=== PATIENT | male | born 1945 | race Caucasian/White ===

== ENCOUNTER 2019-10-24 13:43 | Emergency (ER) | payer MEDICARE, SELFPAY ==
--- NOTE | ~2019-10-24 | XR_ITS ---
XR chest 2V 10/24/2019 14:37 Indication: Fever with cough Procedure: 2 view chest Comparison: 01/20/2011 Findings: There is developing left lower lobe airspace disease. Heart size normal. No edema, pleural effusion or pneumothorax. No acute osseous abnormality. There is moderate thoracic spondylosis. Impression: 1: Left lower lobe airspace disease may represent atelectasis or developing pneumonia. Reviewed, dictated and finalized at location B. INTEGRATION ENGINEER Impression: 1: Left lower lobe airspace disease may represent atelectasis or developing pne umonia.
[2019-10-24 13:47] VITALS: BP 132/60; PULSE 66; RESP 13; O2SAT 95
--- NOTE | 2019-10-24 13:57 | ECG_ITS ---
Measurements Intervals [place] Rate: 66 P: 30 SC: 171 QRS: 21 QRSD: 98 T: 56 QT: 393 QTc: 412 Interpretive Statements SINUS RHYTHM NONSPECIFIC ST & T-WAVE ABNORMALITY- INFERIOR LEADS BORDERLINE ECG Electronically Signed On 10-25-2019 8:42:54 MEMORIAL DESIGNER by Trae You D.O.
[2019-10-24 14:17] VITALS: TEMP 36.9
--- NOTE | 2019-10-24 14:19 | ED.URI ---
HPI - URI/Sore Throat General Chief Complaint: Upper Respiratory Infection <Jacqui Trivedi PA-C - Last Filed: 10/24/19 17:07> Stated Complaint: Flu like symptoms <RAJI Patel Last Filed: 10/24/19 17:07> Time Seen by Provider: 10/24/19 13:54 <Jacqui Trivedi PA-C - Last Filed: 10/24/19 17:07> Source: patient <RAJI Patel Last Filed: 10/24/19 17:07> Mode of arrival: EMS <RAJI Patel Last Filed: 10/24/19 17:07> Limitations: no limitations <RAJI Patel Last Filed: 10/24/19 17:07> History of Present Illness HPI Narrative: This is a 73 year old male that presents to the ER for cold symptoms since yesterday. Reports fever, headache, cough, congestion, sore throat and weakness. Denies chest pain, shortness of breath, abdominal pain, vomiting, dysuria, hematuria. <RAJI Patel Last Filed: 10/24/19 17:07> Related Data Allergies/Adverse Reactions: Allergies Allergy/AdvReac Type Severity Reaction Status Date / Time cefdinir Allergy Mild Unknown Verified 10/24/19 13:57 codeine Allergy Mild Unknown Verified 10/24/19 13:57 Penicillins Allergy Mild Unknown Verified 10/24/19 13:57 Calcium Channel Blocking Allergy Unknown SEE NOTE Verified 10/24/19 13:57 Agents-Dih amlodipine AdvReac Severe SOB, Verified 10/24/19 13:57 JITTERY, INCREASED BLOOD PRESSURE <RAJI Patel Last Filed: 10/24/19 17:07> Review of Systems Review of Systems: Narrative: CONSTITUTIONAL: Reports fever, chills ENT: Reports rhinorrhea, congestion, sore throat, and otalgia. CARDIOVASCULAR: Denies chest pain RESPIRATORY: Reports cough. Denies dyspnea. GASTROINTESTINAL: Denies abdominal pain, nausea, vomiting, or diarrhea. GENITOURINARY: Denies dysuria or hematuria. NEUROLOGIC: Reports headache, and weakness. Denies numbness <Jacqui Trivedi PA-C - Last Filed: 10/24/19 17:07> All systems reviewed & are unremarkable except as noted in HPI and below <Jacqui Trivedi PA-C - Last Filed: 10/24/19 17:07> PMFSH Past Medical History Medical History: Medical History (Updated 10/24/19 @ 17:06 by Jacqui Trivedi PA-C) History of BPH History of COPD History of hyperlipidemia History of hypertension History of hypothyroidism <Jacqui Trivedi PA-C - Last Filed: 10/24/19 17:07> Social History Social History: Social History (Updated 10/24/19 @ 14:24 by Jacqui Trivedi PA-C) Smoking status: Former smoker Gender identity (if verbalized by the patient): Male <Jacqui Trivedi PA-C - Last Filed: 10/24/19 17:07> Exam Narrative: Exam Narrative: GENERAL: Elderly, well-nourished, and in no acute distress. HEAD: Normocephalic, atraumatic. EYES: EOMI. ENT: Nares clear, no rhinorrhea or epistaxis. Mucous membranes moist. Oropharynx without tonsillar hypertrophy exudate or other lesions. Bilateral TMs pearly maldonado non-bulging NECK: Supple. No adenopathy or masses. CHEST: Clear to auscultation. No respiratory distress. No wheezes rales or rhonchi HEART: Regular rate and rhythm. No murmur heard. Normal peripheral pulses. ABDOMEN: Soft, nontender, nondistended, normal active bowel sounds. EXTREMITIES: Normal range of motion. No edema. SKIN: Warm, dry, no rash. NEURO: No focal deficits. Alert and oriented x3. PSYCH: Normal mood and affect <Jacqui Trivedi PA-C - Last Filed: 10/24/19 17:07> Course Vital Signs Vital signs: Vital Signs Pulse Rate 66 10/24/19 13:47 Respiratory Rate 13 10/24/19 13:47 Blood Pressure 132/60 10/24/19 13:47 Pulse Oximetry 95 10/24/19 13:47 Temperature 36.9 C 10/24/19 14:17 Pulse Rate 65 10/24/19 16:43 Respiratory Rate 13 10/24/19 13:47 Blood Pressure 134/59 L 10/24/19 16:43 Pulse Oximetry 95 10/24/19 13:47 <Jacqui Trivedi PA-C - Last Filed: 10/24/19 17:07> Vital Signs Pulse Rate 66 10/24/19 13:47 Respiratory Rate 13 10/24/19 13
--- NOTE | 2019-10-24 14:28 | PC.NURSE ---
Pt taken to Xray at this time.
[2019-10-24 14:39] LABS: Basophils Percent Auto 0.1 % (0.2-1.2); Hematocrit 38.8 % (42.0-52.0); Hemoglobin 13.1 g/dL (14.0-18.0); Immature Granulocyte Absolute 0.14 K/mm3 (0.00-0.031); Immature Granulocyte Percent A 0.9 % (0-0.5); Lymphocytes Absolute Auto 1.91 K/mm3 (0.9-3.2); Lymphocytes Percent Auto 11.9 % (18.3-44.2); Mean Corpuscular HGB Conc 33.8 g/dl (32-36); Mean Corpuscular Hemoglobin 29.8 pg (26-34); Mean Corpuscular Volume 88.4 fl (80-100); Mean Platelet Volume 10.2 fl (7.4-10.4); Monocytes Absolute Auto 0.9 K/mm3 (0.1-0.6); Monocytes Percent Auto 5.6 % (2.6-8.5); Neutrophils Absolute Auto 13.1 K/mm3 (1.3-6.7); Neutrophils Percent Auto 81.5 % (45.5-73.1); Platelet Count Result 184 k/mm3 (150-375); Red Blood Count 4.39 M/mm3 (4.6-6.20); Red Cell Distribution Width 12.4 % (11.5-14.5); White Blood Count 16.1 K/mm3 (4.5-10.0)
[2019-10-24] MEDS: SODIUM CHLORIDE 0.9% IV 1,000 ML 999 ML IV CONT (14:40)
[2019-10-24 14:46] LABS: Lactic Acid Reflex 1.1 mmol/L (0.7-2.1)
--- NOTE | 2019-10-24 14:50 | PC.NURSE ---
Pt unable to give urine sample at this time. This RN placed urinal at bedside
[2019-10-24 14:55] LABS: Alanine Aminotransferase 14 U/L (4-50); Albumin Level 3.7 g/dL (3.5-5.1); Alkaline Phosphatase 73 U/L (38-126); Aspartate Amino Transferase 18 U/L (17-59); Bilirubin,Total 1.1 mg/dL (0.2-1.3); Blood Urea Nitrogen 19 mg/dL (9-20); Calcium 8.6 mg/dL (8.4-10.2); Carbon Dioxide 29 mmol/L (22-30); Chloride 98 mmol/L (98-107); Estimated CRCL calculation 419 ml/min; Estimated Glomerular Filt Rate > 60; Glucose 123 mg/dL (75-110); Potassium 3.3 mmol/L (3.4-5.0); Sodium 136 mmol/L (137-145)
[2019-10-24] MEDS: POTASSIUM CHLORIDE 20 MEQ PACKET (FOR LIQUID) 40 MEQ PO (16:40)
[2019-10-24 16:43] VITALS: BP 134/59; PULSE 65
== END 2019-10-24 17:27 | disposition home or self-care (01) ==
PROVIDERS: Physician Assistant; Emergency Provider Emergency Medicine; PCP Internal Medicine
DX: J15.9 Unspecified bacterial pneumonia (principal); N40.0 Benign prostatic hyperplasia without lower urinary tract symptoms; J44.9 Chronic obstructive pulmonary disease, unspecified; E78.5 Hyperlipidemia, unspecified; I10 Essential (primary) hypertension; E03.9 Hypothyroidism, unspecified; Z87.891 Personal history of nicotine dependence; R94.31 Abnormal electrocardiogram [ECG] [EKG]
CPT/HCPCS: 36415; 71046; 80053; 83605; 85025; 86140; 87804; 93005; 96361; 96365; 99284; A9270; J1956; J7030

== ENCOUNTER 2020-10-19 14:03 | Outpatient (CLI) | payer MEDICARE, SELFPAY | END 2020-10-19 14:04 | disposition home or self-care (01) | LOC: ANHCOVIDVC 14:03 | PROVIDERS: PCP Internal Medicine Cardiovascular Disease; Visit Provider Internal Medicine Cardiovascular Disease | DX: Z23 Encounter for immunization (principal) | CPT/HCPCS: 0001A; 91300 ==

== ENCOUNTER 2020-11-09 13:58 | Outpatient (CLI) | payer MEDICARE, SELFPAY | END 2020-11-09 13:59 | disposition home or self-care (01) | LOC: ANHCOVIDVC 13:58 | PROVIDERS: PCP Internal Medicine Cardiovascular Disease | DX: Z23 Encounter for immunization (principal) | CPT/HCPCS: 0002A; 91300 ==

== ENCOUNTER 2021-03-13 13:05 | Emergency (ER) | payer MEDICARE, SELFPAY ==
--- NOTE | ~2021-03-13 | XR_ITS ---
XR hip LT min 3V w AP pelvis DATE: 03/13/2021 13:29 INDICATION: Fall. Left hip pain TECHNIQUE: AP pelvis. AP, lateral and crosstable lateral views of left hip COMPARISON: None FINDINGS: Osteopenia. Mild left hip osteoarthritis No pelvic fracture or bone destruction. Normal alignment at the pubic symphysis and sacroiliac joints . No fracture, dislocation, avascular necrosis or bone destruction of the left hip. IMPRESSION: Osteopenia; no left hip fracture or dislocation Reviewed, dictated and finalized at location A.
--- NOTE | ~2021-03-13 | XR_ITS ---
XR ankle LT min 3V DATE: 03/13/2021 13:28 INDICATION: Fall. Left ankle injury, pain TECHNIQUE: 4 views COMPARISON: None FINDINGS: No fracture or dislocation of the ankle or disruption of the ankle mortise. No periosteal r eaction or bone destruction. IMPRESSION: No fracture or dislocation of the ankle Reviewed, dictated and finalized at location A.
--- NOTE | ~2021-03-13 | XR_ITS ---
EXAMINATION: XR lumbar spine 2-3V EXAM DATE: 03/13/2021 14:17 INDICATION: Fall, low back pain. TECHNIQUE: Lumber spine frontal, lateral, lateral L5-S1 projections for interpretation. Comparison is made to prior examination from 08/01/2018. FINDINGS: Possible sacral fracture distally, age indeterminate. Chronic moderate to severe burst frac ture of the L2 vertebral body, has been treated with methylmethacrylate. Probably about 5 mm retropul maddie of L2 at inferior endplate. Mild chronic compression fracture of T11 and minimal at T12. Paraspi nal soft tissue is unremarkable. IMPRESSION: 1. Possible sacral fracture distally, age indeterminate but not present in 2018. Reviewed, dictated and finalized at location A. IMPRESSION: 1. Possible sacral fracture distally, age indeterminate but not present in 201 8.
--- NOTE | ~2021-03-13 | CT_ITS ---
EXAMINATION: CT lumbar spine [facility] EXAM DATE: 03/13/2021 15:28 INDICATION: Low back pain, fall, abnormal x-ray. TECHNIQUE: Spiral CT lumbar spine was performed without contrast. Axial, coronal and sagittal images of the lumbar spine were reviewed. The dose-length product (DLP) for this examination was 1169.77 mGy -cm. The exposure was tailored according to patient size (auto mA exposure control), and iterative r econstruction (ASIR) was used as additional dose reduction technique. Comparison is made to prior exa mination from 2018. FINDINGS: Acute minimal burst fracture of the L5 vertebral body, mild loss of this vertebral body hei ght centrally and posteriorly, only 2 mm of retropulsion. Contour abnormality to the S5 segment along its left anterior cortex is likely an old fracture. L2 b urst fracture with moderate to severe loss of this vertebral body height centrally and anteriorly and 7 mm retropulsion, causing moderate central canal stenosis. Moderate to severe lower lumbar facet a rthropathy. Moderate loss of the disc height at L3-4, mild to moderate at L4-5 and L1-2. A detailed l evel by level evaluation of spondylosis can be added as addendum if requested. IMPRESSION: 1. Acute minimal L5 burst fracture, only 2 mm retropulsion. 2. Chronic findings including treated L2 burst fracture with retropulsion causing moderate central c anal stenosis. Reviewed, dictated and finalized at location A. IMPRESSION: 1. Acute minimal L5 burst fracture, only 2 mm retropulsion. 2. Chronic findings including treated L2 burst fracture with retropulsion caus ing moderate central canal stenosis.
[2021-03-13 13:08] VITALS: BP 176/75; PULSE 61; RESP 16; TEMP 36.9; O2SAT 98
[2021-03-13 13:51] VITALS: BP 162/63; PULSE 51; RESP 18; O2SAT 99
--- NOTE | 2021-03-13 13:55 | ED.FALL ---
HPI - Fall General Chief Complaint: Fall Stated Complaint: fall Time Seen by Provider: 03/13/21 13:31 Source: patient and family Limitations: no limitations History of Present Illness HPI Narrative: Patient 75 years old white male was trying to put his pants on yesterday noon, lost his balance and fell backward, denies head or neck injury. Complaining of left buttock pain. Patient denies any fever, chills, nausea, vomiting, chest pain, shortness of breath, headache patient on baby aspirin patient also denies bowel dysfunction, bladder dysfunction, altered sensation, focal weakness, or saddle numbness, Related Data Home Medications Medication Instructions Recorded Confirmed Alaway 03/13/21 Centrum Silver 03/13/21 albuterol 03/13/21 aspirin 81 mg PO DAILY 03/13/21 atorvastatin 03/13/21 azelastine INTRANASAL 03/13/21 cetirizine [Zyrtec] mg 03/13/21 enalapril maleate 03/13/21 finasteride mg 03/13/21 fluticasone propion-salmeterol INHALATION 03/13/21 [Advair Diskus] hydrochlorothiazide 03/13/21 ibuprofen 03/13/21 levothyroxine 03/13/21 montelukast mg 03/13/21 nebivolol [Bystolic] mg 03/13/21 tamsulosin mg PO 03/13/21 Allergies Allergy/AdvReac Type Severity Reaction Status Date / Time cefdinir Allergy Mild Unknown Verified 03/13/21 13:21 codeine Allergy Mild Unknown Verified 03/13/21 13:21 Penicillins Allergy Mild Unknown Verified 03/13/21 13:21 Calcium Channel Blocking Allergy Unknown SEE NOTE Verified 03/13/21 13:21 Agents-Dih zolpidem [From Ambien] Allergy Unknown Verified 03/13/21 13:21 amlodipine AdvReac Severe SOB, Verified 03/13/21 13:21 JITTERY, INCREASED BLOOD PRESSURE Review of Systems Review of Systems: Narrative: CONSTITUTIONAL: Denies fever, chills, or sweats. EYES: Denies visual changes, redness, or discharge. ENT: Denies rhinorrhea, congestion, sore throat, or otalgia. CARDIOVASCULAR: Denies chest pain, palpitations, or edema. RESPIRATORY: Denies cough or dyspnea. GASTROINTESTINAL: Denies abdominal pain, nausea, vomiting, or diarrhea. GENITOURINARY: Denies dysuria or hematuria. SKIN: Denies rash or itching. MUSCULOSKELETAL: Denies back pain, joint pain, or myalgia. NEUROLOGIC: Denies headache, numbness, or weakness. PSYCHIATRIC: Denies anxiety or depression. [facility] Past Medical History Medical History History of BPH History of COPD History of hyperlipidemia History of hypertension History of hypothyroidism Social History Social History Smoking status: Former smoker Gender identity (if verbalized by the patient): Male Exam Narrative: Exam Narrative: General appearance: Well-developed, well-nourished Skin: Normal color Head: Normocephalic, nontraumatic Eyes: Clear conjunctiva ENT: Oropharynx normal, ears normal, nose normal Neck: Supple, nontender Chest and respiratory: Airway patent, no respiratory distress, no accessory muscle use Heart: Regular rate/rhythm Abdomen: Soft, nontender, no organomegaly, quiet bowel sounds Vascular: Normal peripheral pulses, normal capillary refill. Musculoskeletal: Mild tenderness left buttocks, no bruises, no swelling or deformity. Neurologic: Alert and oriented ?3, MAINTAINER PLANT is normal as tested, no gross motor deficit Course Course Emergency Course: Stable Reevaluation(s) Reevaluation #1: At the time of discharge patient requested to be transferred by ambulance because he cannot manage to take care of himself without chemist assistant. I did offer to be transferred to [facility], patient requested to go to
[2021-03-13] MEDS: ACETAMINOPHEN 325 MG TABLET 650 MG PO (14:17)
[2021-03-13 14:47] VITALS: TEMP 36.9
[2021-03-13] MEDS: traMADol HCL (*CRX) 50 MG TABLET PO (17:31)
[2021-03-13 18:01] VITALS: TEMP 36.9
[2021-03-13 18:12] VITALS: BP 120/74; PULSE 52; RESP 18; O2SAT 98
--- NOTE | 2021-03-13 19:45 | PC.NURSE ---
Report given to [facility] and transferred to [facility] at this time.
== END 2021-03-13 20:02 | disposition short-term general hospital (02) ==
PROVIDERS: Emergency Provider Emergency Medicine
DX: S32.051A Stable burst fracture of fifth lumbar vertebra, initial encounter for closed fracture (principal); N40.0 Benign prostatic hyperplasia without lower urinary tract symptoms; J44.9 Chronic obstructive pulmonary disease, unspecified; E78.5 Hyperlipidemia, unspecified; I10 Essential (primary) hypertension; E03.9 Hypothyroidism, unspecified; Z87.891 Personal history of nicotine dependence; M85.88 Other specified disorders of bone density and structure, other site; W18.39XA Other fall on same level, initial encounter; S32.02 Fracture of second lumbar vertebra; M48.00 Spinal stenosis, site unspecified; X58.XXXS Exposure to other specified factors, sequela; Z79.82 Long term (current) use of aspirin
CPT/HCPCS: 72100; 72131; 73502; 73610; 99285; A9270

== ENCOUNTER 2022-01-24 14:05 | Inpatient (IN) | payer MEDICARE, SELFPAY ==
--- NOTE | 2022-01-24 | ECHO_ITS ---
Patient Info Name: Milton Miller Age: 76 years : 1945 Gender: Male Ht: 72 in Wt: 184 lbs BSA: 2.07 m2 HR: 58 bpm BP: 141 / 60 mmHg Heart Rhythm: Sinus Rhythm Technical Quality: Fair Exam Date: 01/24/2022 5:19 PM Exam Location: [facility] Pulmonary Patient Status: Inpatient Admit Date: 01/24/2022 Staff Ordering Physician: Nima Cueva MD Leather Production Machine Operator: Sammie Morales RDCS Attending Provider: Milo Rees MD Referring Physician: Hammad PÉREZ; Exam Type: CA echo doppler color flow Study Info Indications - Preop cardiac risk assess, Bradycardia/freq PVC'S Complete two-dimensional, color flow and Doppler transthoracic echocardiogram is performed. Summary 1. Complete two-dimensional, color flow and Doppler transthoracic echocardiogram is performed. 2. Borderline left ventricular enlargement with mild concentric hypertrophy. Overall good left ventricular systolic function with estimated ejection fraction 60-65%. However there is basal inferior wall hypokinesis. Grade 2 diastolic dysfunction is present. 3. Left atrial chamber dimension is moderately enlarged. 4. There is mild aortic valve regurgitation. 5. There is mild mitral valve regurgitation. 6. Moderate pulmonary hypertension, estimated pulmonary arterial systolic pressure is 58 mmHg. 7. There is mild tricuspid valve regurgitation. 8. Normal sinus rhythm with PVCs. Left Ventricle Left ventricular chamber dimension is normal. Left ventricular systolic function is normal, estimated at 60-65%. There is mildly increased left ventricular wall thickness. Left ventricular septal wall motion is normal. The left ventricular diastolic function is grade II diastolic dysfunction. Right Ventricle Right ventricular chamber dimension is normal. Right ventricular systolic function is normal. Left Atria Left atrial chamber dimension is moderately enlarged. Right Atria Right atrial chamber dimension is normal. Aortic Valve The aortic valve is trileaflet. There is no aortic valve sclerosis. There is no aortic valve stenosis. There is mild aortic valve regurgitation. Pulmonic Valve The pulmonic valve is normal. There is no pulmonic valve stenosis. There is no pulmonic regurgitation. Mitral Valve The mitral valve has normal leaflets. There is no mitral valve stenosis. There is mild mitral valve regurgitation. Tricuspid Valve The tricuspid valve leaflets are normal. There is no significant tricuspid valve stenosis. There is mild tricuspid valve regurgitation. Moderate pulmonary hypertension, estimated pulmonary arterial systolic pressure is 58 mmHg. Pericardium/Pleural The pericardium appears normal. There is no pericardial effusion. Inferior Vena Cava Normal inferior vena cava with >50% collapse upon inspiration consistent with Empty right atrial pressure, 10 mmHg. Aorta The aortic root size at the sinus of Valsalva is normal. The prox ascending aorta size is normal. Left Ventricular Outflow Tract Name Value Normal LVOT 2D LVOT Diameter 2.3 cm LVOT Doppler LVOT Peak Gradient 3 mmHg
--- NOTE | ~2022-01-24 | MR_ITS ---
EXAMINATION: MR lumbar spine wo con DATE: 01/27/2022 11:49 INDICATION: Weakness. TECHNIQUE: Magnetic resonance imaging (MRI) of the lumbar spine was performed without intravenous con trast. Sequences included sagittal T2-weighted FSE, sagittal T2-weighted FS FSE, sagittal T1-weighted FSE, and axial T2-weighted FSE. COMPARISON: CT lumbar spine 03/13/2021 FINDINGS: There is 5 degrees levocurvature of lumbar spine. There is mild chronic anterior wedging of T10, T11, and T12 vertebral bodies. There is a chronic burst fracture of L2 with changes of vertebro plasty. There is a chronic burst fracture of L5 with up to 2/5 loss of height. There is mildly decrea sed disc height at L2-L3 and severely decreased disc height at L3-L4 and L4-L5 with endplate remodeli ng. The distal spinal cord signal intensity is normal. The conus medullaris is at T12-L1. The followi ng disc levels are specifically discussed: L1-L2: The disc is bulging. There is severe right and moderate left facet joint osteoarthritis. There is mild bilateral neural foraminal stenosis. There is mild central canal stenosis. L2-L3: The disc is bulging. There is moderate right and mild left facet joint osteoarthritis. There i s severe right and moderate left neural foraminal stenosis. There is mild central canal stenosis. L3-L4: The disc is bulging and has an annular fissure. There is severe bilateral facet joint osteoart hritis. There is moderate bilateral neural foraminal stenosis. There is mild central canal stenosis. L4-L5: The disc is bulging and has an annular fissure. There is severe bilateral facet joint osteoart hritis. There is mild right and moderate left neural foraminal stenosis. There is mild central canal stenosis. L5-S1: The disc is bulging. There is severe bilateral facet joint osteoarthritis. There is mild bilat eral neural foraminal stenosis. There is no central canal stenosis. IMPRESSION: 1. Severe lumbar spondylosis, stable from 03/13/2021. Reviewed, dictated and finalized at location A.
--- NOTE | ~2022-01-24 | MR_ITS ---
EXAMINATION: MR cervical spine wo/w con DATE: 01/27/2022 14:53 INDICATION: Weakness. TECHNIQUE: Magnetic resonance imaging (MRI) of the cervical spine was performed without and with 18 m L MultiHance intravenous contrast. Sequences included sagittal and axial T2-weighted FSE, sagittal T2 -weighted FS FSE, and sagittal and axial T1-weighted FSE. Postcontrast sequences included sagittal an d axial T1-weighted FS FSE. COMPARISON: None FINDINGS: Bone alignment is normal. Vertebral body heights are normal. There is mildly decreased disc height at C5-C6 and moderately decreased disc height at C6-C7. The spinal cord signal intensity is n ormal. The following disc levels are specifically discussed: C2-C3: The disc does not extend beyond the endplate margin. There is mild left uncovertebral joint os teoarthritis. There is mild right and moderate left facet joint osteoarthritis. There is mild left ne ural foraminal stenosis. There is no central canal stenosis. C3-C4: The disc is bulging and has an annular fissure. There is mild bilateral uncovertebral joint os teoarthritis. There is severe right and moderate left facet joint osteoarthritis. There is mild bilat eral neural foraminal stenosis. There is mild central canal stenosis. C4-C5: There is a central protrusion. There is no uncovertebral joint osteoarthritis. There is mild r ight and moderate left facet joint osteoarthritis. There is mild bilateral neural foraminal stenosis. There is mild central canal stenosis. C5-C6: There is a right central protrusion. There is no uncovertebral joint osteoarthritis. There is moderate right and mild left facet joint osteoarthritis. There is mild right neural foraminal stenosi s. There is mild central canal stenosis with ventral indentation of the spinal cord. C6-C7: There is a central extrusion. There is moderate right and severe left uncovertebral joint oste oarthritis. There is moderate bilateral facet joint osteoarthritis. There is mild bilateral neural fo raminal stenosis. There is mild central canal stenosis. C7-T1: There is a left central protrusion. There is no uncovertebral joint osteoarthritis. There is m oderate right and mild left facet joint osteoarthritis. There is mild left neural foraminal stenosis. There is central canal stenosis. IMPRESSION: 1. Moderate cervical spondylosis. Reviewed, dictated and finalized at location A.
--- NOTE | ~2022-01-24 | XR_ITS ---
EXAM: XR hip RT 1V w AP pelvis DATE: 01/25/2022 19:02 HISTORY: RT BIPOLAR HIP POST OP . COMPARISON: None available. FINDINGS: Interval right hip arthroplasty. No abnormal perihardware lucency or fracture. No unexpect ed radiopaque foreign body. Expected postsurgical changes. IMPRESSION: No radiographic evidence of procedure or hardware related consultation. Reviewed, dictated and finalized at location K. IMPRESSION: No radiographic evidence of procedure or hardware related consultat ion.
--- NOTE | ~2022-01-24 | XR_ITS ---
XR hip RT 2V w AP pelvis 01/24/2022 14:38 Indication: Right hip pain Procedure: 3 views right hip Comparison: 08/01/2018 Findings: There is a displaced right femoral neck fracture with varus angulation. There is lower lumb ar spondylosis partially visualized. Pelvic rings are intact. Impression: 1: Displaced right femoral neck fracture with varus angulation. Reviewed, dictated and finalized at location B. Impression: 1: Displaced right femoral neck fracture with varus angulation.
--- NOTE | ~2022-01-24 | XR_ITS ---
EXAM: XR surgery orthopedic DATE: 01/25/2022 17:51 HISTORY: RT BIPOLAR HIP . COMPARISON: CT right hip 01/24/2022. FINDINGS: A single portable intraoperative view demonstrates trial fitting for a right hip arthropla sty. Subcutaneous gas. Surgical instruments overlie the right lateral aspect of the image. No unexpec les radiopaque foreign body. IMPRESSION: Intraoperative view during right hip arthroplasty. Reviewed, dictated and finalized at location K.
--- NOTE | ~2022-01-24 | CT_ITS ---
CT OF RIGHT HIP EXAMINATION: CT hip RT wo con DATE: 01/24/2022 16:15 INDICATION: Fracture. Ground-level fall. TECHNIQUE: Computed tomography (CT) of the right hip was performed without intravenous contrast. Auto mated exposure control and iterative reconstruction technique were employed. The dose-length product was 193.35 mGy-cm. COMPARISON: X-ray right hip, same date. FINDINGS: Limitations: None Bones: Mildly comminuted fractures of the right femoral neck with multiple small osseous fragments th at are likely intracapsular. No fragment interposition between the articular surfaces. Medial and ang ulation and external rotation of the distal fracture fragment. No other fracture. Soft Tissues:The rectum is dilated by formed stool although incompletely visualized. Bladder wall thi ckening likely on the basis of outlet compromise from prostatomegaly. Fluid: Small volume right hip joint space fluid. IMPRESSION: Mildly comminuted right femoral neck fracture with medial angulation and external rotation. Fecal imp action. Reviewed, dictated and finalized at location K. 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 Fecal impaction.
--- NOTE | ~2022-01-24 | MR_ITS ---
EXAMINATION: MR thoracic spine wo/w con DATE: 01/27/2022 14:54 INDICATION: Weakness. TECHNIQUE: Magnetic resonance imaging (MRI) of the thoracic spine was performed without and with 18 m L MultiHance intravenous contrast. COMPARISON: None FINDINGS: There is 5 degrees levocurvature of thoracic spine. There is kyphosis of thoracic spine. Th ere is mild chronic anterior wedging of T7-T11 vertebral bodies. There is a hemangioma in T4 vertebra l body. There is mildly decreased disc height from T4-T5 through T10-T11. At T9-T10, there is a left central protrusion with mild central canal stenosis. There is multilevel mild to moderate facet joint osteoarthritis. On the right, there is mild neural foraminal stenosis at T10-T11. On the left, there is mild neural foraminal stenosis at T3-T4, T8-T9, T10-T11, and T11-T12. The spinal cord signal inte nsity is normal. IMPRESSION: 1. Mild thoracic spondylosis. Reviewed, dictated and finalized at location A.
--- NOTE | ~2022-01-24 | XR_ITS ---
XR chest 1V portable 01/26/2022 12:31 Indication: Fever. Postop. Procedure: AP portable chest Comparison: Comparison to multiple prior studies sequentially, with oldest reviewed study dated 12/2010. Findings: There are bilateral perihilar interstitial infiltrates. There is bibasilar consolidation. S hallow inspiration. Heart size normal for technique. No significant effusion or pneumothorax. Impression: 1: Bilateral perihilar and basilar infiltrates, suspicious for pneumonia. Reviewed, dictated and finalized at location B. Impression: 1: Bilateral perihilar and basilar infiltrates, suspicious for pneumonia.
--- NOTE | ~2022-01-24 | XR_ITS ---
EXAMINATION: XR chest 1V 01/24/2022 14:38 INDICATION: Right hip fracture. Preoperative examination. PROCEDURE: AP view of the chest COMPARISON: 10/24/2019 FINDINGS: The lungs are clear. The cardiomediastinal silhouette is within normal limits. There are no pleural effusions. There is no pneumothorax suspected. There are vertebroplasty changes in the l umbar spine. IMPRESSION: 1: NO ACUTE CARDIOPULMONARY DISEASE. Reviewed, dictated and finalized at location B.
--- NOTE | 2022-01-24 14:01 | ED.LOWEXIN ---
HPI - Extremity Injury (Lower) General Chief Complaint: Extremity Injury, Lower Stated Complaint: R hip injury s/p GLF History of Present Illness HPI Narrative: The patient is a 76 yo male with a history of COPD, HTN, vertebral fracture, presenting to the ER for evaluation of right hip pain following a fall. Pt reportedly was descending down two steps in his garage to get to a walker in his garage, when he reached forward for the walker and lost his balance, causing him to fall to his right side. Patient endorses right hip pain and difficulty with standing, thus and EMS was called and ambulance transported him to our facility. In route, patient was noted to be shortened, externally rotated. Patient reported only mild pain 08/29, thus no medications were given in route. Patient is not on any anticoagulation. He has history of lumbar vertebral fracture from a fall in 2020. Patient denies head trauma or loss of consciousness. No prodromal symptoms such as chest pain, palpitations prior to the fall. Related Data Home Medications Medication Instructions Recorded Confirmed Alaway 03/13/21 Centrum Silver 03/13/21 albuterol 03/13/21 aspirin 81 mg tablet 81 mg PO DAILY 03/13/21 atorvastatin 10 mg tablet 03/13/21 azelastine 137 mcg (0.1 %) nasal intranasal 03/13/21 spray aerosol cetirizine 10 mg tablet (Zyrtec) mg 03/13/21 enalapril maleate 20 mg tablet 03/13/21 finasteride 5 mg tablet mg 03/13/21 fluticasone 250 mcg-salmeterol 50 inhalation 03/13/21 mcg/dose blistr powdr for inhalation (Advair Diskus) hydrochlorothiazide 12.5 mg tablet 03/13/21 ibuprofen 03/13/21 levothyroxine 75 mcg tablet 03/13/21 montelukast 10 mg tablet mg 03/13/21 nebivolol 10 mg tablet (Bystolic) mg 03/13/21 tamsulosin 0.4 mg capsule mg PO 03/13/21 Allergies Allergy/AdvReac Type Severity Reaction Status Date / Time codeine Allergy Mild Unknown Verified 01/24/22 14:17 Penicillins Allergy Mild Unknown Verified 01/24/22 14:17 Calcium Channel Blocking Allergy Unknown SEE NOTE Verified 01/24/22 14:17 Agents-Dih zolpidem [From Ambien] Allergy Unknown Verified 01/24/22 14:17 amlodipine AdvReac Severe SOB, Verified 01/24/22 14:17 JITTERY, INCREASED BLOOD PRESSURE Review of Systems Review of Systems: CONSTITUTIONAL: Denies fever, chills, or sweats. EYES: Denies visual changes, redness, or discharge. ENT: Denies rhinorrhea, congestion, sore throat, or otalgia. CARDIOVASCULAR: Denies chest pain, palpitations, or edema. RESPIRATORY: Denies cough or dyspnea. GASTROINTESTINAL: Denies abdominal pain, nausea, vomiting, or diarrhea. GENITOURINARY: Denies dysuria or hematuria. SKIN: Denies rash or itching. MUSCULOSKELETAL: Denies back pain, reports right hip pain, denies knee pain NEUROLOGIC: Denies headache, numbness, or weakness. COUNT INCLUDES THE [facility] Past Medical History Medical History (Updated 01/24/22 @ 16:02 by Brooke Self PA-C) Asthma Benign prostate hyperplasia Diastolic dysfunction Dyslipidemia Lizeth's disease Hypertension Hypothyroidism Mild coronary artery disease Minor nonocclusive coronary disease with 20% proximal and 30% LAD stenosis with an EF of 60%. Paroxysmal supraventricular tachycardia Surgical History Surgical History (Updated 01/24/22 @ 15:59 by Brooke Self PA-C) History of cardiac catheterization (2009) History of colonoscopy with polypectomy History of loop recorder History of tonsillectomy Family History Family History (Updated 01/24/22 @ 16:00 by Brooke Self PA-C) Father Cerebrovascular accident Hypertension Heart failure Diabetes mellitus Mother Diabetes mellitus Hypertension Social History Social History (Updated 01/24/22 @ 16:02 by Brooke Self PA-C) Social History: Surrogate decision maker: Code status: Smoking status: Former smoker Exam Narrative: GENERAL: Awake, alert, conversant HEAD: Normocephalic, atraumatic.
[2022-01-24 14:03] VITALS: BP 164/72; PULSE 55; RESP 17; TEMP 37; O2SAT 98
[2022-01-24] MEDS: ACETAMINOPHEN 500 MG TABLET 1000 MG PO (14:28)
[2022-01-24 14:34] LABS: Basophils Percent Auto 0.2 % (0.2-1.2); Eosinophils Percent Auto 0.1 % (0-4.4); Hematocrit 39.5 % (42.0-52.0); Hemoglobin 12.9 g/dL (14.0-18.0); Immature Granulocyte Absolute 0.05 K/mm3 (0.00-0.031); Immature Granulocyte Percent A 0.4 % (0-0.5); Lymphocytes Absolute Auto 2.05 K/mm3 (0.9-3.2); Lymphocytes Percent Auto 16.5 % (18.3-44.2); Mean Corpuscular HGB Conc 32.7 g/dl (32-36); Mean Corpuscular Hemoglobin 29.3 pg (26-34); Mean Corpuscular Volume 89.6 fl (80-100); Mean Platelet Volume 10.8 fl (7.4-10.4); Monocytes Absolute Auto 0.6 K/mm3 (0.1-0.6); Neutrophils Absolute Auto 9.7 K/mm3 (1.3-6.7); Neutrophils Percent Auto 77.8 % (45.5-73.1); Platelet Count Result 178 k/mm3 (150-375); Red Blood Count 4.41 M/mm3 (4.6-6.20); White Blood Count 12.4 K/mm3 (4.5-10.0)
[2022-01-24 14:44] LABS: Anion Gap 5 mmol/L (8-16); Blood Urea Nitrogen 28 mg/dL (9-20); Calcium 9.1 mg/dL (8.4-10.2); Carbon Dioxide 29 mmol/L (22-30); Chloride 103 mmol/L (98-107); Estimated CRCL calculation 76 ml/min; Estimated Glomerular Filt Rate > 60; Glucose 117 mg/dL (65-110); Potassium 3.4 mmol/L (3.4-5.0); Sodium 137 mmol/L (137-145)
[2022-01-24 14:45] LABS: INR 1.2; Partial Thromboplastin Time 29.5 SECONDS (22.3-36.8)
[2022-01-24 15:11] LABS: SARS-CoV-2 RNA PCR Negative
--- NOTE | 2022-01-24 15:30 | ECG_ITS ---
Measurements Intervals [place] Rate: 55 P: 42 [place]: 180 QRS: 26 QRSD: 94 T: 53 QT: 460 QTc: 444 Interpretive Statements SINUS BRADYCARDIA WITH OCCASIONAL VENTRICULAR PREMATURE COMPLEXES POSSIBLE LEFT ATRIAL ENLARGEMENT [-0.1mV P WAVE IN V1/V2] COMPARED TO ECG 10/24/2019 13:53:21 SINUS BRADYCARDIA NOW PRESENT Electronically Signed On 01-25-2022 7:21:54 CDT by Milton York M.D.
[2022-01-24 16:19] VITALS: BP 141/60; PULSE 58; RESP 18; O2SAT 96
--- NOTE | 2022-01-24 16:30 | PM.IMHP ---
H&P: HPI History of Present Illness Date/Time: 01/24/22 16:30 Chief Complaint: Right hip pain after a ground level fall. Narrative: This is a plasma 76-year-old male with history of mild coronary artery disease, hypertension, dyslipidemia, asthma, asymptomatic bradycardia, and history of PSVT and prior syncope status post implantable loop recorder who presented to the ED for evaluation of right hip pain after a ground level fall. He has been having problems with his back recently and he actively participates in physical therapy. Due to ongoing back pain, he has been ambulating with a walker and not long prior to arrival he walked down a couple of steps into his garage and when he got to the bottom he reached over for his walker and fell forward onto his right hip. He had immediate pain in the right leg was unable to get himself up. In the ER he was indeed found to have a displaced right femoral neck fracture and he is being admitted in this setting. He denies head trauma, loss of consciousness, and other injuries from the fall. He also denies antecedent symptoms, reporting that the fall was strictly mechanical. At the time my evaluation he is resting comfortably after receiving IV acetaminophen. Review of Systems Review of Systems: Twelve systems were reviewed. No fever, chills, or sweats. No recent cold or flu symptoms. No syncope or near syncope. No chest pain or shortness of breath. Asthma is well controlled. No orthopnea, PND, or lower extremity edema. He saw his condominium association manager Dr. Zamudio proximally 6 months ago at which time he reportedly had an unremarkable chemical stress test and echocardiogram. Appetite has been okay. No nausea, vomiting, diarrhea, or dysuria. He denies paresthesias, skin color, and temperature changes distal to the fracture site. Except as documented, all other systems were reviewed and are negative. [facility] Past Medical History Medical History (Updated 01/24/22 @ 20:10 by Brooke Self PA-C) Asthma Benign prostate hyperplasia Diastolic dysfunction Dyslipidemia Hypertension Hypothyroidism Mild coronary artery disease Minor nonocclusive coronary disease with 20% proximal and 30% LAD stenosis with an EF of 60%. Paroxysmal supraventricular tachycardia Surgical History Surgical History (Updated 01/24/22 @ 20:11 by Brooke Self PA-C) History of cardiac catheterization (2009) History of cataract extraction History of colonoscopy with polypectomy History of loop recorder History of thyroidectomy History of tonsillectomy Family History Family History Father Diabetes mellitus Heart failure Hypertension Cerebrovascular accident Mother Diabetes mellitus Hypertension Legal Guardian No problems noted. Grandparent Cerebrovascular accident Social History Social History (Updated 01/24/22 @ 20:11 by Brooke Self PA-C) Social History: Surrogate decision maker: Saniya Miller, spouse. Code status: Full code. Smoking status: Former smoker Tobacco type: cigarettes Alcohol intake: never Substance use: never Additional living arrangements comments: The patient lives with his in [place]. 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 Spiritual care concerns: No Meds Home Medications and Allergies Home Medications Medication Instructions Recorded Confirmed Type aspirin 81 mg tablet 81 mg PO DAILY 03/13/21 01/24/22 History atorvastatin 10 mg tablet (Lipitor) 10 mg PO DAILY 03/13/21 01/24/22 History azelastine 137 mcg (0.1 %) nasal 137 mcg intranasal BID PRN Nasal 03/13/21 01/24/22 History spray aerosol Congestion cetirizine 10 mg tablet (Zyrtec) 10 mg PO DAILY 03/13/21 01/24/22 History enalapril maleate 20 mg tablet 10 mg PO DAILY 03/13/21 01/24/22 History finasteride 5 mg tablet 5 mg PO DAILY 03/13/21 01/24/22 History fluticasone 250 mcg-salmeterol 50 250 inh inhalatio
[2022-01-24 17:54] VITALS: PULSE 58; RESP 16; O2SAT 97
[2022-01-24 18:04] VITALS: BMI 26.1
[2022-01-24 18:17] VITALS: BP 154/70; PULSE 56; RESP 16; TEMP 37.1; O2SAT 97
--- NOTE | 2022-01-24 18:24 | ADMGEN ---
This patient, Milton Miller, was admitted to [facility] Surg Room 307-01. Patient/family oriented to hospital policies and general routines including ID bracelet, bed and alarms, visiting hours, pain management, procedures, bathroom and other care routines, personal items, smoking policy, room service/diet, and visiting hours. Information on how to activate the Rapid Response Team has been discussed. Patient/Family are encouraged to report perceived risks to care and to ask questions if they do not understand what they are told or what they should do.
[2022-01-24] MEDS: ACETAMINOPHEN 325 MG TABLET 650 MG PO (20:36)
[2022-01-24 21:54] VITALS: BP 122/61; PULSE 56; RESP 16; TEMP 36.9; O2SAT 97
[2022-01-25] VITALS (15 sets, daily range): BP systolic 142–193; BP diastolic 56–79; PULSE 51–75; RESP 14–106; TEMP 36.3–37.8; O2SAT 94–100; BMI 26.3
[2022-01-25] MEDS: ACETAMINOPHEN 325 MG TABLET 650 MG PO (01:00)
[2022-01-25 06:00] LABS: Hematocrit 37.2 % (42.0-52.0); Hemoglobin 12.1 g/dL (14.0-18.0); Mean Corpuscular HGB Conc 32.5 g/dl (32-36); Mean Corpuscular Hemoglobin 29.4 pg (26-34); Mean Corpuscular Volume 90.3 fl (80-100); Mean Platelet Volume 10.6 fl (7.4-10.4); Platelet Count Result 169 k/mm3 (150-375); Red Blood Count 4.12 M/mm3 (4.6-6.20); White Blood Count 10.4 K/mm3 (4.5-10.0)
[2022-01-25 06:18] LABS: Alanine Aminotransferase 15 U/L (6-50); Albumin Level 3.4 g/dL (3.5-5.1); Alkaline Phosphatase 54 U/L (38-126); Anion Gap 4 mmol/L (8-16); Aspartate Amino Transferase 20 U/L (17-59); Blood Urea Nitrogen 25 mg/dL (9-20); Calcium 8.5 mg/dL (8.4-10.2); Carbon Dioxide 30 mmol/L (22-30); Chloride 103 mmol/L (98-107); Estimated CRCL calculation 68 ml/min; Estimated Glomerular Filt Rate > 60; Glucose 102 mg/dL (65-110); Magnesium 1.9 mg/dL (1.6-2.3); Potassium 3.1 mmol/L (3.4-5.0); Sodium 137 mmol/L (137-145)
[2022-01-25] MEDS: LEVOTHYROXINE SODIUM 75 MCG TABLET PO (06:44)
--- NOTE | 2022-01-25 08:02 | PM.CNOR ---
History of Present Illness HPI Consult date: 01/25/22 <YANICK Randall - Last Filed: 01/25/22 08:10> 01/25/22 <Nima Cueva MD - Last Filed: 01/25/22 15:54> Chief complaint: Right Femoral Fracture <YANICK Randall - Last Filed: 01/25/22 08:10> Narrative: 76-year-old male who we are being consulted for right femoral neck fracture. He fell yesterday at home on 01/24. He was going down the steps from his house to his garage. He typically walks with a walker and left his walker in the house and when he got down the stairs he was reaching for another walker that was in his garage but lost his balance. He fell hard on the right hip. He had immediate pain in the right hip. He is unable to get up. EMS was called he was transported [facility]. X-ray showed displaced right femoral neck fracture. He was admitted for surgical fixation. Physical exam 76-year-old male very alert very pleasant. He complains of pain in the right hip with any motion. His leg is externally rotated. He is a 2+ posterior tibial artery pulse. He has no swelling in either lower extremity. There is no ecchymosis noted around the hip. There is no swelling in the thigh. He is complaining of no pain anywhere else from the fall. Complains no numbness or tingling in the feet. Impression: 76-year-old male who has a displaced right femoral neck fracture. This is going to need to be treated with a bipolar hemiarthroplasty. 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 We have consulted Cardiology have also ordered echo which will be done later this morning. Patient states previous echo does have shown some mild ?leaky valve?. He is on a baby aspirin daily, no other anticoagulants this point. Patient has had fractures in his back and his back surgeon as the bone density in the past. Patient was not told that he had osteoporosis. He does take calcium and vitamin-D daily. We will check a vitamin-D on him while is here. Patient's pain has been tolerable with p.o. Tylenol. At this point since he is unable to take p.o. meds we will start him on IV Tylenol to keep him comfortable. The plan will be to proceed with surgery this afternoon as long as he has been cleared from medical and cardiology standpoint. Patient is voiding well in the bed, I do not think that he needs a Bajwa catheter at this point. I discussed surgical procedure with the patient well as the risks and complications. Dr. Cueva will see the patient prior to surgery. Patient's hemoglobin was 12.9 this morning. I did discuss with him that may require transfusion of surgery as well, I think this is less likely with his hemoglobin where it is now but there is always possibility. <YANICK Randall - Last Filed: 01/25/22 08:10> [facility] Past Medical History Medical History: Medical History Asthma Benign prostate hyperplasia Diastolic dysfunction Dyslipidemia History of atrial fibrillation 1 episode in 2019 when hospitalized for L2 fracture and kyphoplasty Hypertension Hypothyroidism Mild coronary artery disease Minor nonocclusive coronary disease with 20% proximal and 30% LAD stenosis with an EF of 60%. Paroxysmal supraventricular tachycardia PSVT (paroxysmal supraventricular tachycardia) PVCs (premature ventricular contractions) <YANICK Randall - Last Filed: 01/25/22 08:10> Surgical History Surgical History: Surgical History H/O kyphoplasty Fell off a ladder, burst fracture of L2, 2019 History of cardiac catheterization (2009) History of cataract extraction History of colonoscopy with polypectomy History of loop recorder History of thyroidectomy History of tonsillectomy <YANICK Randall - Last Filed: 01/25/22 08:10> Family History Family History: Family History (Reviewed 01/25/22 @ 15:29 by Keith Lopez
[2022-01-25] MEDS: NEBIVOLOL HCL 5 MG TABLET 20 MG PO (08:25)
[2022-01-25] MEDS: MONTELUKAST SODIUM 10 MG TABLET PO (08:27)
[2022-01-25] MEDS: FINASTERIDE 5 MG TABLET PO (08:27)
[2022-01-25] MEDS: LORATADINE 10 MG TABLET PO (08:27)
[2022-01-25] MEDS: ENALAPRIL MALEATE 10 MG TABLET PO (08:27)
[2022-01-25] MEDS: hydroCHLOROthiazide 12.5 MG CAPSULE PO (08:28)
[2022-01-25] MEDS: TAMSULOSIN HCL 0.4 MG CAPSULE PO (08:28)
[2022-01-25] MEDS: ATORVASTATIN 10 MG TABLET PO (08:28)
[2022-01-25] MEDS: SODIUM CHLORIDE 0.9% IV 1,000 ML 80 ML IV CONT (08:30)
[2022-01-25] MEDS: FLUTICASONE/SALMETEROL 115-21 MCG INHALER 1 PUFF 2 PUFF INHALATION (08:47)
[2022-01-25 09:16] LABS: Vitamin D 25 Hydroxy 31.6 ng/mL
--- NOTE | 2022-01-25 10:23 | PM.CNCAR ---
Assessment and Plan Assessment and plan (1) Preoperative cardiovascular examination: Code(s): Z01.810 - Encounter for preprocedural cardiovascular examination Status: Acute Assessment and Plan: Patient has a history of nonobstructive coronary disease and no angina or heart failure. His EKG shows no ischemic changes. Echo shows good left ventricular function overall. Patient appears to be at low risk for cardiovascular events with the proposed surgery. Cleared for OR. (2) PVCs (premature ventricular contractions): Code(s): I49.3 - Ventricular premature depolarization Status: Acute Assessment and Plan: Patient has a history of PVCs. He also has a history of PSVT and 1 episode of atrial fibrillation when hospitalized in 2019. Will follow for any arrhythmias induced from current illness. (3) Mild coronary artery disease: Code(s): I25.10 - Atherosclerotic heart disease of [place] coronary artery without angina pectoris Status: Chronic Assessment and Plan: History of mild nonocclusive coronary disease, asymptomatic. Continue aspirin and statin therapy. (4) Hypertension: Code(s): I10 - Essential (primary) hypertension Status: Acute Assessment and Plan: Blood pressure reasonably controlled. (5) Displaced fracture of right femoral neck: Code(s): S72.001A - Fracture of unspecified part of neck of right femur, initial encounter for closed fracture Status: Acute Assessment and Plan: Mazin arthroplasty planned for today. History of Present Illness History of Present Illness Consult date/time: 01/25/22 10:23 Reason For Visit: Right Femoral Fracture Narrative: Mr. Milton Miller is a 76-year-old male whom I was asked to see at the request of Dr. Cueva for my advice and opinion regarding his perioperative cardiac risk. He sustained an hip fracture and right bipolar hemiarthorplasty is planned for this afternoon with Dr. Steven Monterroso. Patient has a history of nonobstructive CAD, PSVT, PVCs, hypertension, sinus bradycardia and 1 isolated episode of atrial fibrillation when hospitalized for a L2 fracture in 2018 and had kyphoplasty. The patient has had troubles with his back since is L2 fracture in 2019. He walks with a walker. Yesterday he fell and sustained a right hip fracture as above. The patient previously saw Dr. Salazar, last time being in December 2018 at which time he was stable. He remained in sinus rhythm. Subsequently he is now seen by Dr. Zamudio at [facility]. The patient apparently had a remote cardiac catheterization which showed nonocclusive coronary disease. He has had no heart issues over the last few years. He states his last stress test about a year ago was unremarkable. He denies any chest pain pressure tightness, or any SOB, BUTT, or palpitations. He does have occasional edema. Echo from 2019 as below. Review of Systems Constitutional: Constitutional: Denies lethargy Comments: Still having physical therapy for his chronic back problems and walks with a walker. Eyes: Eyes: Reports no additional eye complaints Comments: Status post cataract removal, vision is good ENT: Denies nasal congestion (Allergies have not been too bad recently) Cardiovascular: Cardiovascular: Denies chest pain, Denies diaphoresis, Reports pedal edema, Denies lightheadedness and Denies palpitations Respiratory: Respiratory: Denies chest congestion, Denies dyspnea and Denies dyspnea on exertion Gastrointestinal: Gastrointestinal: Denies abdominal pain and Denies hematochezia Genitourinary: Genitourinary: Denies hematuria and Denies dysuria Musculoskeletal:
--- NOTE | 2022-01-25 12:45 | PCNSR ---
On 01/25/22, the student,Lori Garcia, provided care and completed [facility] documentation on this patient. I have reviewed the student's documentation and agree with the findings.
--- NOTE | 2022-01-25 14:36 | PM.IMPN ---
Progress Note: A&P Assessment and Plan (1) Displaced fracture of right femoral neck: Code(s): S72.001A - Fracture of unspecified part of neck of right femur, initial encounter for closed fracture Status: Acute Assessment and Plan: Sustained in a mechanical fall. Records requested from Dr. Zamudio for review of echocardiogram and stress test done within the last 6 months. The patient will be NPO after midnight for surgery this afternoon with ortho. (2) Hypertension: Code(s): I10 - Essential (primary) hypertension Status: Acute Assessment and Plan: Blood pressures were reviewed and they have been running a bit high, likely due to pain. Continue antihypertensives and monitor daily. (3) Hypothyroidism: Code(s): E03.9 - Hypothyroidism, unspecified Status: Acute Assessment and Plan: Continue levothyroxine and check TSH. (4) Mild coronary artery disease: Code(s): I25.10 - Atherosclerotic heart disease of [place] coronary artery without angina pectoris Status: Chronic Assessment and Plan: Mild coronary artery disease noted on cardiac catheterization in 2009. Recent chemical stress test per Dr. Zamudio was reportedly unremarkable, per patient report. He has not had any exertional chest pain or shortness of breath. (5) Asthma: Code(s): J45.909 - Unspecified asthma, uncomplicated Status: Acute Assessment and Plan: Well controlled. Continue maintenance inhalers. Subjective Date/time seen: 01/25/22 14:37 Review of Systems Review of Systems: Twelve point review of systems was reviewed and is negative except as noted in the HPI Exam Narrative: General: Patient resting comfortably in bed, no acute distress HEENT: Atraumatic, normocephalic, mucous membranes moist CV: Regular rate and rhythm, S1, S2, no murmurs rubs or gallops noted Lungs: Clear to auscultation bilaterally, no rales or crackles noted, no wheezes, good air entry Abdomen: Soft, nontender, nondistended Skin: No rashes noted, no lesions or wounds seen Psych: Euthymic, normal affect Neuro: Cranial nerves 2-12 grossly intact, strength 5/5 upper and lower extremities noted Objective Data Vital Signs Vital Signs: Vital Signs - 24 hr 01/24/22 16:19 01/24/22 17:54 01/24/22 18:17 Temperature 98.7 F Pulse Rate 58 L 58 L 56 L Respiratory Rate 18 16 16 Blood Pressure 141/60 H 154/70 H Pulse Oximetry 96 97 97 Oxygen Delivery 01/24/22 21:54 01/24/22 20:00 01/25/22 05:14 Temperature 98.4 F 99.3 F Pulse Rate 56 L 58 L Respiratory Rate 16 106 H Blood Pressure 122/61 142/79 H Pulse Oximetry 97 96 Oxygen Delivery Room Air 01/25/22 08:25 01/25/22 14:00 01/25/22 14:31 Temperature 100.0 F H 99.4 F Pulse Rate 55 L 56 L Respiratory Rate 16 Blood Pressure 179/56 H Pulse Oximetry 94 Oxygen Delivery Intake/Output Intake/Output: Intake & Output 01/22/22 01/23/22 01/24/22 01/25/22 23:59 23:59 23:59 23:59 Intake Total 300 Output Total 400 Balance -100 Meds/Results Medications: Active Medications Generic Name Dose Route Start Last Admin Trade Name Freq PRN Reason Stop Dose Admin Acetaminophen 650 mg 01/24/22 15:59 01/25/22 01:00 Acetaminophen 325 Mg Tablet PO 650 mg Q4H PRN Administration Mild Pain (1-3) or Fever Atorvastatin Calcium 10 mg 01/25/22 09:00 01/25/22 08:28 Atorvastatin 10 Mg Tablet PO 10 mg DAILY MARIBEL Administration Azelastine HCl 1 spray 01/24/22 20:18 Azelastine Hcl Nasal 0.1% 137 Mcg/Spr 30 Ml Btl NASAL BID PRN Nasal Congestion Sodium Chloride 39.7 ml/ 0 ml 01/25/22 15:00 Ropivacaine 200 mg/ INFILTRATE 01/25/22 15:01 Epinephrine HCl 0.3 mg ONCE ONE Enalapril Maleate 10 mg 01/25/22 09:00 01/25/22 08:27 Enalapril Maleate 10 Mg Tablet PO 10 mg DAILY MARIBEL Administration Finasteride 5 mg 01/25/22 09:00 01/25/22 08:27
[2022-01-25] MEDS: LACTATED RINGERS 1,000 ML 30 ML IV CONT ×2 (15:10→19:03)
--- NOTE | 2022-01-25 15:29 | WPDANESEPPF ---
Anes - Initial Pre Proc Eval Procedure: Operation Date: 01/25/22 16:30 Proposed Procedures p Right Bipolar Hip Replacement - Nima Cueva MD Date/Time: 01/25/22 15:29 Surgeon: Shefali Miranda DO Pre Op Diagnosis: Right Femoral Fracture Patient Data Age: 76 Gender: M Height: 1.83 m Weight: 88.1 kg Last Vital Signs Temp 36.6 C 01/25/22 15:15 Pulse 60 01/25/22 15:15 Resp 20 01/25/22 15:15 BP 193/77 H 01/25/22 15:15 Pulse Ox 96 01/25/22 15:15 O2 Del Method Room Air 01/25/22 15:15 Allergies Allergy/AdvReac Type Severity Reaction Status Date / Time codeine Allergy Mild Itching Verified 01/24/22 18:39 Penicillins Allergy Mild Hives Verified 01/24/22 18:39 Calcium Channel Blocking Allergy Unknown SEE NOTE Verified 01/24/22 18:39 Agents-Dih zolpidem [From Ambien] Allergy Nightmare Verified 01/24/22 18:39 amlodipine AdvReac Severe SOB, Verified 01/24/22 18:39 JITTERY, INCREASED BLOOD PRESSURE Home Medications Medication Instructions Recorded Confirmed Type aspirin 81 mg tablet 81 mg PO DAILY 03/13/21 01/24/22 History atorvastatin 10 mg tablet (Lipitor) 10 mg PO DAILY 03/13/21 01/24/22 History azelastine 137 mcg (0.1 %) nasal 137 mcg intranasal BID PRN Nasal 03/13/21 01/24/22 History spray aerosol Congestion cetirizine 10 mg tablet (Zyrtec) 10 mg PO DAILY 03/13/21 01/24/22 History enalapril maleate 20 mg tablet 10 mg PO DAILY 03/13/21 01/24/22 History finasteride 5 mg tablet 5 mg PO DAILY 03/13/21 01/24/22 History fluticasone 250 mcg-salmeterol 50 250 inh inhalation BID 03/13/21 01/24/22 History mcg/dose blistr powdr for inhalation (Advair Diskus) hydrochlorothiazide 12.5 mg tablet 12.5 mg PO DAILY 03/13/21 01/24/22 History ibuprofen 200 mg BYMOUTH Q4-6H PRN Back Pain 03/13/21 01/24/22 History levothyroxine 75 mcg tablet 75 mcg PO DAILY 03/13/21 01/24/22 History montelukast 10 mg tablet 10 mg PO DAILY 03/13/21 01/24/22 History nebivolol 10 mg tablet (Bystolic) 20 mg PO DAILY 03/13/21 01/24/22 History tamsulosin 0.4 mg capsule 0.4 mg PO DAILY 03/13/21 01/24/22 History Laboratory Tests 01/24/22 01/25/22 01/25/22 14:28 05:43 05:43 WBC 10.4 K/mm3 H K/mm3 (4.5-10.0) RBC 4.12 M/mm3 L M/mm3 (4.6-6.20) Hgb 12.1 g/dL L g/dL (14.0-18.0) Hct 37.2 % L % (42.0-52.0) MCV 90.3 fl fl (80-100) MCH 29.4 pg pg (26-34) MCHC 32.5 g/dl g/dl (32-36) RDW 13.0 % % (11.5-14.5) Plt Count 169 k/mm3 k/mm3 (150-375) MPV 10.6 fl H fl (7.4-10.4) Sodium 137 mmol/L mmol/L (137-145) Potassium 3.1 mmol/L L mmol/L (3.4-5.0) Chloride 103 mmol/L mmol/L (98-107) Carbon Dioxide 30 mmol/L mmol/L (22-30) Anion Gap 4 mmol/L L mmol/L (8-16) BUN 25 mg/dL H mg/dL (9-20) Creatinine 0.90 mg/dL mg/dL (0.7-1.3) Estim Creat Clear Calc 68 ml/min ml/min Estimated GFR > 60 (59 - ) Glucose 102 mg/dL mg/dL (65-110) Calcium 8.5 mg/dL mg/dL (8.4-10.2) Magnesium 1.9 mg/dL mg/dL (1.6-2.3) Total Bilirubin 1.0 mg/dL mg/dL (0.2-1.3) AST 20 U/L U/L (17-59) ALT 15 U/L U/L (6-50) Alkaline Phosphatase 54 U/L U/L (38-126) Total Protein 6.0 g/dL L g/dL (6.3-8.2) Albumin 3.4 g/dL L g/dL (3.5-5.1) Vitamin D 25-Hydroxy TSH (Reflex) Blood Type O Positive Antibody Screen Negative 01/25/22 01/25/22 05:43 05:43 WBC RBC Hgb Hct MCV MCH MCHC RDW Plt Count MPV Sodium Potassium Chloride Carbon Dioxide Anion Gap BUN Creatinine Estim Creat Clear Calc Estimated GFR
--- NOTE | 2022-01-25 15:51 | WPDHPUPDATE1 ---
History and Physical Update Update Date/Time: 01/25/22 15:51 History and Physical has been reviewed, including an updated exam of the patient. There are NO changes in the patient's condition. Risks, benefits, and alternatives have been discussed and questions answered. Patient agrees to proceed with procedure I discussed the risks of surgery with the patient and his in detail. He has used a walker continuously it exclusively for the last few years. He has been going through therapy to try and improve his ability to walk and improve his equilibrium. Cardiac echo reviewed. 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 Will proceed as discussed. cardiology has consulted.
[2022-01-25] MEDS: TRANEXAMIC ACID 1,000MG/ISO100 1,000 MG/100 ML BAG 200 MG IVPB (16:10)
[2022-01-25] MEDS: ceFAZolin 2 GM/D5W 50 ML 2 GM/50 ML BAG IVPB (16:21)
[2022-01-25] MEDS: ceFAZolin SODIUM 1 GM VIAL 3 GM (16:55)
[2022-01-25] MEDS: ceFAZolin SODIUM 1 GM VIAL IV PUSH (18:05)
[2022-01-25] MEDS: TRANEXAMIC ACID 1,000 MG/10 ML AMPUL 1000 MG IV PUSH (18:05)
--- NOTE | 2022-01-25 18:36 | W.PM.PROC2 ---
Procedure Note - Detailed Date of Procedure 01/25/22 Pre-op Diagnosis Right Femoral Fracture Post-op Diagnosis Same Procedure Performed Press-Fit bipolar hemiarthroplasty right hip Surgeon Nima Cueva MD Director Staffing Loc Description of Procedure Patient was brought to the operating room and general anesthesia was administered. The right hip was blood scrubbed for 5 minutes with the chlorhexidine cloth. Patient was transferred the operating table and endotracheal tube placed. He received 2 g Ancef weight based vancomycin 1 g of tranexamic acid preoperatively. He was placed in the lateral decubitus position carefully position axillary roll in place right hip prepped draped usual fashion. A 7 in longitudinal incision was made centered over the greater trochanter. Fascia cory was incised over the center of the greater trochanter. The anterior 40% of the gluteus medius and gluteus minimus were elevated off the greater trochanter and the capsule incised superiorly and elevated off the anterior proximal femur. Femoral neck osteotomy was performed according to preoperative templating. The femoral head was removed. It measured 56-1/4 mm diameter. It would not go through the 56 ring it would pass through the 57. We trialed the 57 head which seated fully and was a snug fit. The femur was broached to a size 10 I could not reduce the hip. I countersunk the broach about 4 mm and I was able to reduce the hip with the 1.5 head standard offset neck but we could not dislocate this until we released about 1 cm of the IT band posterior flap which was too tight. With this we could then dislocate the hip the small bone hook. There was appropriate range of motion and ample shot off tissue Shuck with the very large size of the head course made dislocation more difficult. Intraoperative x-ray was obtained. Leg lengths looked appropriate. It looked as if we could possibly go up a size on the stem. We calcar planed and there was a little bit of torsional wiggle with the gun attached the broach this was removed and we broached to size 11 which gave a very snug fit and this took a while to sink down flush with the calcar plane neck cut. There was no torsional play with the 11 was a very tight fit. On trialing we had full range of motion with appropriate stability and soft tissue tension with the 57 bipolar 1.5 head on the standard neck trial. We chose the size 11 Actis stem standard neck and this was impacted and fully seated with the precise impactor gun without difficulty. Stability of the stem was confirmed. We trialed 1 more time with the 1.5 which was appropriate. The 1.5 x 28 mm femoral head was assembled to the 57 mm bipolar head. We re-irrigated the wound verify the acetabular fossa was free of debris. I should mention that the articular cartilage on the femoral head looked perfect as it did in the acetabular fossa and the acetabular labrum was normal and preserved. The hip was reduced stability reconfirmed. The capsule was reapproximated with 2. Ethibond. The abductors repaired to bone with 5. Ethibond through drill holes and 2. Ethibond. The fascia repaired with 2. Vicryl is a and 1. Unidirectional barbed Stratafix sutures. Drain placed deep in the subcu skin closed with 2 subcutaneous Vicryl and glue. EBL was 200 cc. There were no complications. 3rd g Ancef 2nd g of tranexamic acid given at time of wound closure. Urine Output 400
--- NOTE | 2022-01-25 19:09 | ECG_ITS ---
Measurements Intervals [place] Rate: 65 P: 40 NM: 181 QRS: 20 QRSD: 100 T: 41 QT: 466 QTc: 488 Interpretive Statements SINUS RHYTHM WITH FREQUENT VENTRICULAR PREMATURE COMPLEXES COMPARED TO ECG 01/24/2022 15:43:00 HEART RATE IS FASTER Electronically Signed On 01-25-2022 22:22:04 CDT by Kerry Muhkerjee M.D.
[2022-01-25] MEDS: KCL 20MEQ/0.9% SOD CHL 1,000 ML 125 ML IV CONT (20:49)
[2022-01-26] VITALS (14 sets, daily range): BP systolic 127–162; BP diastolic 52–72; PULSE 57–78; RESP 18; TEMP 35.8–38.1; O2SAT 96–100
[2022-01-26 06:20] LABS: Basophils Percent Auto 0.1 % (0.2-1.2); Hematocrit 38.9 % (42.0-52.0); Hemoglobin 12.4 g/dL (14.0-18.0); Immature Granulocyte Absolute 0.08 K/mm3 (0.00-0.031); Immature Granulocyte Percent A 0.5 % (0-0.5); Lymphocytes Percent Auto 11.8 % (18.3-44.2); Mean Corpuscular HGB Conc 31.9 g/dl (32-36); Mean Corpuscular Hemoglobin 28.9 pg (26-34); Mean Corpuscular Volume 90.7 fl (80-100); Mean Platelet Volume 10.8 fl (7.4-10.4); Monocytes Absolute Auto 0.9 K/mm3 (0.1-0.6); Monocytes Percent Auto 5.6 % (2.6-8.5); Neutrophils Absolute Auto 12.5 K/mm3 (1.3-6.7); Platelet Count Result 155 k/mm3 (150-375); Red Blood Count 4.29 M/mm3 (4.6-6.20); Red Cell Distribution Width 13.1 % (11.5-14.5); White Blood Count 15.3 K/mm3 (4.5-10.0)
[2022-01-26 06:39] LABS: Alanine Aminotransferase 17 U/L (6-50); Albumin Level 3.6 g/dL (3.5-5.1); Alkaline Phosphatase 52 U/L (38-126); Anion Gap 4 mmol/L (8-16); Aspartate Amino Transferase 23 U/L (17-59); Bilirubin,Total 0.6 mg/dL (0.2-1.3); Blood Urea Nitrogen 20 mg/dL (9-20); Carbon Dioxide 30 mmol/L (22-30); Chloride 100 mmol/L (98-107); Estimated CRCL calculation 76 ml/min; Estimated Glomerular Filt Rate > 60; Glucose 167 mg/dL (65-110); Potassium 3.5 mmol/L (3.4-5.0); Sodium 134 mmol/L (137-145)
[2022-01-26] MEDS: LEVOTHYROXINE SODIUM 75 MCG TABLET PO (06:44)
[2022-01-26 06:46] LABS: Prealbumin 12.7 mg/dL (17.6-36.0)
--- NOTE | 2022-01-26 07:12 | PM.PNORT ---
Progress Note: A&P Assessment and Plan (1) Displaced fracture of right femoral neck: Code(s): S72.001A - Fracture of unspecified part of neck of right femur, initial encounter for closed fracture Status: Acute Plan Patient is postop day 1 after bipolar hemiarthroplasty Press-Fit right hip. Hemoglobin stable 12.4 mild acute blood loss anemia. Potassium improved to 3.5. Sodium borderline 134. Creatinine normal 0.8. Pre albumin low indicating relative protein deficiency and will supplement. Vitamin-D level borderline. My impression is that this gentleman does have osteoporosis despite history of bone density test showing otherwise and we will check bone density test on a postoperative basis. She has been afebrile stable vital signs. He is still hypertensive as he was before surgery. His oxygen saturations 99-100%. He has no swelling in his right leg has intact sensation and motor function in the right foot. Wound is dry. The drain will be pulled out this morning. No bowel movement yet. He tried on the bedpan yesterday without success. The CT scan from the day before showed fecal impaction. He is on stool softeners and we will leave an order for a Fleet's enema if he feels is necessary. Patient is having no pain. I discussed with him what pain medications he is on. He is tolerating the oxycodone without nausea but that may affect his constipation adversely and he would like to cut back on the dose will cut him down to the 2.5 dose. Plan is to mobilize him today as tolerated. Subjective Subjective Date/Time Seen: 01/26/22 07:12 Objective Data Vital Signs Vital Signs: Vital Signs - 24 hr 01/25/22 08:25 01/25/22 14:00 01/25/22 14:31 Temperature 37.8 C H 37.4 C Pulse Rate 55 L 56 L Respiratory Rate 16 Blood Pressure 179/56 H Pulse Oximetry 94 Oxygen Delivery Oxygen Flow Rate 01/25/22 15:15 01/25/22 15:38 01/25/22 19:02 Temperature 36.6 C 36.6 C 36.4 C Pulse Rate 60 60 75 Respiratory Rate 20 20 19 Blood Pressure 193/77 H 193/77 H 180/56 H Pulse Oximetry 96 96 96 Oxygen Delivery Room Air Room Air Simple Face Mask Oxygen Flow Rate 10 01/25/22 19:17 01/25/22 19:32 01/25/22 19:49 Temperature Pulse Rate 67 69 56 L Respiratory Rate 14 Blood Pressure 160/59 H 156/62 H 185/68 H Pulse Oximetry 99 97 96 Oxygen Delivery Simple Face Mask Room Air Room Air Oxygen Flow Rate 10 01/25/22 20:02 01/25/22 20:19 01/25/22 20:00 Temperature 36.7 C 36.4 C Pulse Rate 53 L 51 L Respiratory Rate 16 Blood Pressure 171/70 H 185/65 H Pulse Oximetry 96 97 97 Oxygen Delivery Nasal Cannula Nasal Cannula Oxygen Flow Rate 2 2 01/25/22 20:49 01/25/22 21:49 01/26/22 01:35 Temperature 36.3 C L 36.4 C 35.8 C L Pulse Rate 55 L 65 66 Respiratory Rate 18 18 18 Blood Pressure 178/75 H 178/75 H 160/69 H Pulse Oximetry 100 100 100 Oxygen Delivery Oxygen Flow Rate 01/26/22 00:00 01/26/22 05:49 01/26/22 04:00 Temperature 36.7 C Pulse Rate 57 L 60 62 Respiratory Rate 18 Blood Pressure 162/72 H Pulse Oximetry 100 Oxygen Delivery Oxygen Flow Rate Intake/Output Intake/Output: Intake & Output 01/23/22 01/24/22 01/25/22 01/26/22 23:59 23:59 23:59 23:59 Intake Total 700 1550 Output Total 1200 450 Balance -500 1100 Meds/Results Medications: Active Medications Generic Name Dose Route Start Last Admin Trade Name Mario Albertoq PRN Reason Stop Dose Admin Acetaminophen 1,000 mg 01/26/22 00:00 01/26/22 06:18 Acetaminophen 500 Mg Tablet PO Not Given Q6H [facility] Apixaban 2.5 mg 01/26/22 09:00 Apixaban 2.5 Mg Tablet PO Q12HR [facility] Aspirin 81 mg 01/26/22 08:00 Aspirin 81 Mg Chewable Tablet PO DAILY@0800 [facility] Atorvastatin Calcium 10 mg 01/25/22 09:00 01/25/22 08:28 Atorvastatin 10 Mg Tablet PO 10 mg DAILY [facility] Administration Azelastine HCl 1 spray 01/24/22 20:18 Azelastine Hcl Nasal 0.1% 137 Mcg/Spr 30 Ml
--- NOTE | 2022-01-26 07:13 | PM.PNORT ---
Subjective Subjective Date/Time Seen: 01/26/22 07:13 postop day 1 patient is alert. Afebrile vital signs are stable. He is having minimal discomfort. He is taking no narcotics at this point. His drain is going to be removed this morning. Dressing is dry. Neurovascular is intact. He has not been up out of bed yet. He is able to void on his own in the bed comfortably. morning labs are noted. His vitamin-D was on the low end of normal at 31.6 we will supplement this with 92632 units weekly. Will have Physical therapy work with the patient today to see how he does. If patient makes good progression with physical therapy today and he continues to be medically stable plan, we will plan on discharging him to home tomorrow. Objective Data Vital Signs Vital Signs: Vital Signs - 24 hr 01/25/22 08:25 01/25/22 14:00 01/25/22 14:31 Temperature 37.8 C H 37.4 C Pulse Rate 55 L 56 L Respiratory Rate 16 Blood Pressure 179/56 H Pulse Oximetry 94 Oxygen Delivery Oxygen Flow Rate 01/25/22 15:15 01/25/22 15:38 01/25/22 19:02 Temperature 36.6 C 36.6 C 36.4 C Pulse Rate 60 60 75 Respiratory Rate 20 20 19 Blood Pressure 193/77 H 193/77 H 180/56 H Pulse Oximetry 96 96 96 Oxygen Delivery Room Air Room Air Simple Face Mask Oxygen Flow Rate 10 01/25/22 19:17 01/25/22 19:32 01/25/22 19:49 Temperature Pulse Rate 67 69 56 L Respiratory Rate 14 Blood Pressure 160/59 H 156/62 H 185/68 H Pulse Oximetry 99 97 96 Oxygen Delivery Simple Face Mask Room Air Room Air Oxygen Flow Rate 10 01/25/22 20:02 01/25/22 20:19 01/25/22 20:00 Temperature 36.7 C 36.4 C Pulse Rate 53 L 51 L Respiratory Rate 16 Blood Pressure 171/70 H 185/65 H Pulse Oximetry 96 97 97 Oxygen Delivery Nasal Cannula Nasal Cannula Oxygen Flow Rate 2 2 01/25/22 20:49 01/25/22 21:49 01/26/22 01:35 Temperature 36.3 C L 36.4 C 35.8 C L Pulse Rate 55 L 65 66 Respiratory Rate 18 18 18 Blood Pressure 178/75 H 178/75 H 160/69 H Pulse Oximetry 100 100 100 Oxygen Delivery Oxygen Flow Rate 01/26/22 00:00 01/26/22 05:49 01/26/22 04:00 Temperature 36.7 C Pulse Rate 57 L 60 62 Respiratory Rate 18 Blood Pressure 162/72 H Pulse Oximetry 100 Oxygen Delivery Oxygen Flow Rate Intake/Output Intake/Output: Intake & Output 01/23/22 01/24/22 01/25/22 01/26/22 23:59 23:59 23:59 23:59 Intake Total 700 1550 Output Total 1200 450 Balance -500 1100 Meds/Results Medications: Active Medications Generic Name Dose Route Start Last Admin Trade Name Freq PRN Reason Stop Dose Admin Acetaminophen 1,000 mg 01/26/22 00:00 01/26/22 06:18 Acetaminophen 500 Mg Tablet PO Not Given Q6H [facility] Apixaban 2.5 mg 01/26/22 09:00 Apixaban 2.5 Mg Tablet PO Q12HR [facility] Aspirin 81 mg 01/26/22 08:00 Aspirin 81 Mg Chewable Tablet PO DAILY@0800 [facility] Atorvastatin Calcium 10 mg 01/25/22 09:00 01/25/22 08:28 Atorvastatin 10 Mg Tablet PO 10 mg DAILY [facility] Administration Azelastine HCl 1 spray 01/24/22 20:18 Azelastine Hcl Nasal 0.1% 137 Mcg/Spr 30 Ml Btl NASAL BID PRN Nasal Congestion Calcium Citrate 1 tablet 01/25/22 17:00 01/25/22 20:01 Calcium Citrate 315 Mg/Vitamin D 250 Units Tab PO Not Given BID [facility] Celecoxib 100 mg 01/26/22 08:00 Celecoxib 100 Mg Capsule PO DAILY@0800 [facility] Enalapril Maleate 10 mg 01/25/22 09:00 01/25/22 08:27 Enalapril Maleate 10 Mg Tablet PO 10 mg DAILY [facility] Administration Finasteride 5 mg 01/25/22 09:00 01/25/22 08:27 Finasteride 5 Mg Tablet PO 5 mg DAILY [facility] Administration Hydrochlorothiazide 12.5 mg 01/25/22 09:00 01/25/22 08:28 Hydrochlorothiazide 12.5 Mg Capsule PO 12.5 mg DAILY [facility] Administration Cefazolin Sodium 1 gm in 50 mls @ 100 mls/hr 01/26/22 00:00 01/26/22 00:20 Ancef 1 Gm/D5w 50 Ml Pm IVPB 01/26/22 16:29 Infused Q8H [facility] In[facility] Vancomycin HCl 1,000 mg in 250 m
[2022-01-26] MEDS: hydroCHLOROthiazide 12.5 MG CAPSULE PO (08:14)
[2022-01-26] MEDS: ASPIRIN 81 MG CHEWABLE TABLET PO (08:14)
[2022-01-26] MEDS: FINASTERIDE 5 MG TABLET PO (08:15)
[2022-01-26] MEDS: SENNA/DOCUSATE SODIUM TABLET 2 TAB PO ×2 (08:15→16:17)
[2022-01-26] MEDS: MONTELUKAST SODIUM 10 MG TABLET PO (08:15)
[2022-01-26] MEDS: oxyCODONE HCL (*CRX) 2.5 MG TAB IR PO (08:15)
[2022-01-26] MEDS: CELECOXIB 100 MG CAPSULE PO (08:15)
[2022-01-26] MEDS: LORATADINE 10 MG TABLET PO (08:16)
[2022-01-26] MEDS: TAMSULOSIN HCL 0.4 MG CAPSULE PO (08:16)
[2022-01-26] MEDS: NEBIVOLOL HCL 5 MG TABLET 20 MG PO (08:16)
[2022-01-26] MEDS: ATORVASTATIN 10 MG TABLET PO (08:16)
[2022-01-26] MEDS: ENALAPRIL MALEATE 10 MG TABLET PO (08:17)
[2022-01-26] MEDS: polyethylene glycoL 3350 17 GM POWD.PACK PO (08:20)
[2022-01-26] MEDS: ERGOCALCIFEROL 50,000 UNIT CAPSULE 50000 UNITS PO (08:21)
[2022-01-26] MEDS: FLUTICASONE/SALMETEROL 115-21 MCG INHALER 1 PUFF 2 PUFF INHALATION ×2 (09:00→20:14)
--- NOTE | 2022-01-26 09:18 | P.PNAN_ITS ---
Anes - Prog Note Post-Op Date/Time: 01/26/22 09:18 Cardiovascular status: normal Respiratory status: normal Airway patency: baseline Mental status: baseline Post-Op hydration status: normal Vital Signs: Last Vital Signs Temp 98.1 F 01/26/22 05:49 Pulse 78 01/26/22 08:16 Resp 18 01/26/22 05:49 BP 162/72 H 01/26/22 05:49 Pulse Ox 100 01/26/22 05:49 O2 Del Method Nasal Cannula 01/25/22 20:02 O2 Flow Rate 2 01/25/22 20:02 Pain Score (VAS): 08/29 I/O: Intake & Output 01/25/22 01/26/22 01/26/22 23:59 07:59 15:59 Intake Total 400 1550 50 Output Total 800 450 10 Balance -400 1100 40 Laboratory Tests 01/26/22 06:08 01/26/22 06:08 01/26/22 01/26/22 01/26/22 06:08 06:08 06:08 WBC 15.3 H RBC 4.29 L Hgb 12.4 L Hct 38.9 L MCV 90.7 MCH 28.9 MCHC 31.9 L RDW 13.1 Plt Count 155 MPV 10.8 H Immature Gran % (Auto) 0.5 Neut % (Auto) 82.0 H Lymph % (Auto) 11.8 L Edwards % (Auto) 5.6 Eos % (Auto) 0.0 Baso % (Auto) 0.1 L Lymph # (Auto) 1.80 Edwards # (Auto) 0.9 H Eos # (Auto) 0.0 Baso # (Auto) 0.0 Abs Immat Gran (auto) 0.08 H Absolute Neuts (auto) 12.5 H Absolute Nucleated RBC 0.0 Nucleated RBC % 0.0 Sodium 134 L Potassium 3.5 Chloride 100 Carbon Dioxide 30 Anion Gap 4 L BUN 20 Creatinine 0.80 Estim Creat Clear Calc 76 Estimated GFR > 60 Glucose 167 H Calcium 8.0 L Total Bilirubin 0.6 AST 23 ALT 17 Alkaline Phosphatase 52 Total Protein 6.0 L Albumin 3.6 Prealbumin 12.7 L Vitamin D 25-Hydroxy Pending Post-procedural complaints: none Patient Feedback: Patient satisfied with anesthetic care.
[2022-01-26 09:37] LABS: Vitamin D 25 Hydroxy 38.3 ng/mL
[2022-01-26] MEDS: APIXABAN 2.5 MG TABLET PO ×2 (10:30→20:32)
[2022-01-26] MEDS: ACETAMINOPHEN 500 MG TABLET 1000 MG PO ×3 (11:38→22:42)
--- NOTE | 2022-01-26 11:51 | PM.IMPN ---
Progress Note: A&P Assessment and Plan (1) Displaced fracture of right femoral neck: Code(s): S72.001A - Fracture of unspecified part of neck of right femur, initial encounter for closed fracture Status: Acute Assessment and Plan: Postop day 1, spiking fevers, orthopedic surgery ordered Tylenol, Ancef and vancomycin, check chest x-ray, urinalysis in follow-up on CBC tomorrow (2) Hypertension: Code(s): I10 - Essential (primary) hypertension Status: Acute Assessment and Plan: Improved with better pain management (3) Hypothyroidism: Code(s): E03.9 - Hypothyroidism, unspecified Status: Acute Assessment and Plan: Continue levothyroxine, TSH within normal limits (4) Mild coronary artery disease: Code(s): I25.10 - Atherosclerotic heart disease of [place] coronary artery without angina pectoris Status: Chronic Assessment and Plan: Mild coronary artery disease noted on cardiac catheterization in 2009. Recent chemical stress test per Dr. Zamudio was reportedly unremarkable, per patient report. He has not had any exertional chest pain or shortness of breath. (5) Asthma: Code(s): J45.909 - Unspecified asthma, uncomplicated Status: Acute Assessment and Plan: Well controlled. Continue maintenance inhalers. Subjective Date/time seen: 01/26/22 11:51 Interval history: Patient seen this morning, sitting up at bedside. He is complaining of continued significant pain in the surgical site. He denies chest pain or shortness of breath. He has been spiking fevers but appears to be asymptomatic. Denies cough, runny nose, dysuria, abdominal pain. Exam Narrative: General: Patient resting comfortably in bed, no acute distress HEENT: Atraumatic, normocephalic, mucous membranes moist CV: Regular rate and rhythm, S1, S2, no murmurs rubs or gallops noted Lungs: Clear to auscultation bilaterally, no rales or crackles noted, no wheezes, good air entry Abdomen: Soft, nontender, nondistended Skin: No rashes noted, no lesions or wounds seen Psych: Euthymic, normal affect Neuro: Cranial nerves 2-12 grossly intact, strength 5/5 upper and lower extremities noted Objective Data Vital Signs Vital Signs: Vital Signs - 24 hr 01/25/22 14:00 01/25/22 14:31 01/25/22 15:15 Temperature 100.0 F H 99.4 F 97.8 F Pulse Rate 56 L 60 Respiratory Rate 16 20 Blood Pressure 179/56 H 193/77 H Pulse Oximetry 94 96 Oxygen Delivery Room Air Oxygen Flow Rate 01/25/22 15:38 01/25/22 19:02 01/25/22 19:17 Temperature 97.8 F 97.6 F Pulse Rate 60 75 67 Respiratory Rate 20 19 14 Blood Pressure 193/77 H 180/56 H 160/59 H Pulse Oximetry 96 96 99 Oxygen Delivery Room Air Simple Face Mask Simple Face Mask Oxygen Flow Rate 10 10 01/25/22 19:32 01/25/22 19:49 01/25/22 20:02 Temperature 98.1 F Pulse Rate 69 56 L 53 L Respiratory Rate Blood Pressure 156/62 H 185/68 H 171/70 H Pulse Oximetry 97 96 96 Oxygen Delivery Room Air Room Air Nasal Cannula Oxygen Flow Rate 2 01/25/22 20:19 01/25/22 20:00 01/25/22 20:49 Temperature 97.6 F 97.3 F L Pulse Rate 51 L 55 L Respiratory Rate 16 18 Blood Pressure 185/65 H 178/75 H Pulse Oximetry 97 97 100 Oxygen Delivery Nasal Cannula Oxygen Flow Rate 2 01/25/22 21:49 01/26/22 01:35 01/26/22 00:00 Temperature 97.6 F 96.4 F L Pulse Rate 65 66 57 L Respiratory Rate 18 18 Blood Pressure 178/75 H 160/69 H Pulse Oximetry 100 100 Oxygen Delivery Oxygen Flow Rate 01/26/22 05:49 01/26/22 04:00 01/26/22 08:16 Temperature 98.1 F Pulse Rate 60 62 78 Respiratory Rate 18 Blood Pressure 162/72 H Pulse Oximetry 100 Oxygen Delivery Oxygen Flow Rate 01/26/22 08:44 01/26/22 09:44 01/26/22 08:00 Temperature 100.6 F H Pulse Rate 68 73 Respiratory Rate 18 Blood Pressure 141/66 H Pulse Oximetry 97 Oxygen Delivery Room Air Oxygen Flow Rate
[2022-01-26 12:56] LABS: Procalcitonin 0.3 ng/mL
[2022-01-26 13:00] LABS: Appearance Urine Clear (Clear); Bilirubin Urine Negative (Negative); Blood Urine Trace-lysed (Negative); Glucose Urine UA Negative (Negative); Ketones Urine Trace mg/dL (Negative); Leukocyte Esterase Ur Negative LEU/UL (NEGATIVE); Nitrate Urine Negative (Negative); Protein Urine Negative (Negative); Urobilinogen Urine 0.2 mg/dL (<2.0); pH Urine 6.5 (5.0-9.0)
[2022-01-26 13:07] LABS: Mucus Urine Rare /lpf; WBC Urine 0-3 /hpf (0-3)
[2022-01-26 13:10] LABS: Add Urine Microscopic? YES; Color Urine Dark Yellow (Yellow)
--- NOTE | 2022-01-26 14:01 | PM.PNCARD ---
Progress Note: A&P Assessment and Plan (1) History of atrial fibrillation: Code(s): Z86.79 - Personal history of other diseases of the circulatory system Status: Acute (2) PVCs (premature ventricular contractions): Code(s): I49.3 - Ventricular premature depolarization Status: Acute Plan - status post right hip surgery - history of paroxysmal AFib - PVCs - history of mild CAD patient had his surgery yesterday January 25, 2022. It was unremarkable. Patient feels well. He did have low-grade fever this morning and chest x-ray shows some infiltrates bilateral lungs. His heart rhythm appears to be sinus with PVCs but no AFib. Continue Eliquis. continue nebivolol. please call us as needed if any further help. Subjective Date/time seen: date of ztvfkue10/09/22 14:01 had his surgery yesterday. Feels better today. He did have a fever this morning. Review of Systems Constitutional: Constitutional: Reports fatigue and Reports weakness ENT: Denies dysphagia and Denies epistaxis Cardiovascular: Cardiovascular: Denies leg edema and Denies lightheadedness Respiratory: Respiratory: Denies chest congestion and Denies dyspnea Gastrointestinal: Gastrointestinal: Denies nausea and Denies vomiting Musculoskeletal: Musculoskeletal: Denies joint swelling and Denies neck pain Integumentary/Breasts: Skin/Breast: Denies pruritus and Denies erythema Neurologic: Denies confusion and Denies vertigo Psychiatric: Psychiatric: Denies anxiety and Denies depression Hematologic/Lymphatic: Hematologic/Lymphatic: Denies easy bleeding Exam Const: General: no acute distress HENMT: General nose exam: Normal nares present Mouth: Yes Abnormal oral and palatal mucosa present Eyes: Sclera: sclerae normal Neck: Thyroid: thyroid normal Resp: Other: Decrease the 2 bilaterally Cardio: Rate: regular rate Heart sounds: no murmurs GI: Inspection: non-distended GI Palp: No Tenderness to palpation present (GI) Skin: Rashes: no rashes noted Neuro: Speech: normal speech Other: alert oriented x3 Extrem: Other: no edema Psych: Other: normal mood and affect Objective Data Vital Signs Vital Signs: Vital Signs - 24 hr 01/25/22 14:31 01/25/22 15:15 01/25/22 15:38 Temperature 37.4 C 36.6 C 36.6 C Pulse Rate 60 60 Respiratory Rate 20 20 Blood Pressure 193/77 H 193/77 H Pulse Oximetry 96 96 Oxygen Delivery Room Air Room Air Oxygen Flow Rate 01/25/22 19:02 01/25/22 19:17 01/25/22 19:32 Temperature 36.4 C Pulse Rate 75 67 69 Respiratory Rate 19 14 Blood Pressure 180/56 H 160/59 H 156/62 H Pulse Oximetry 96 99 97 Oxygen Delivery Simple Face Mask Simple Face Mask Room Air Oxygen Flow Rate 10 10 01/25/22 19:49 01/25/22 20:02 01/25/22 20:19 Temperature 36.7 C 36.4 C Pulse Rate 56 L 53 L 51 L Respiratory Rate 16 Blood Pressure 185/68 H 171/70 H 185/65 H Pulse Oximetry 96 96 97 Oxygen Delivery Room Air Nasal Cannula Oxygen Flow Rate 2 01/25/22 20:00 01/25/22 20:49 01/25/22 21:49 Temperature 36.3 C L 36.4 C Pulse Rate 55 L 65 Respiratory Rate 18 18 Blood Pressure 178/75 H 178/75 H Pulse Oximetry 97 100 100 Oxygen Delivery Nasal Cannula Oxygen Flow Rate 2 01/26/22 01:35 01/26/22 00:00 01/26/22 05:49 Temperature 35.8 C L 36.7 C Pulse Rate 66 57 L 60 Respiratory Rate 18 18 Blood Pressure 160/69 H 162/72 H Pulse Oximetry 100 100 Oxygen Delivery Oxygen Flow Rate 01/26/22 04:00 01/26/22 08:16 01/26/22 08:44 Temperature Pulse Rate 62 78 Respiratory Rate Blood Pressure Pulse Oximetry Oxygen Delivery Room Air Oxygen Flow Rate 01/26/22 09:44 01/26/22 08:00 01/26/22 12:00 Temperature 38.1 C H Pulse Rate 68 73 67 Respiratory Rate 18 Blood Pressure 141/66 H Pulse Oximetry 97 Oxygen Delivery Oxygen Flow Rate 01/26/22 13:37 Temperature 36.8 C Pulse Rate 62 Respiratory Rate 18 Blood
[2022-01-27] VITALS (10 sets, daily range): BP systolic 144–156; BP diastolic 53–63; PULSE 54–68; RESP 16–18; TEMP 36.4–36.8; O2SAT 95–98
[2022-01-27] MEDS: LEVOTHYROXINE SODIUM 75 MCG TABLET PO (05:54)
[2022-01-27] MEDS: ACETAMINOPHEN 500 MG TABLET 1000 MG PO ×3 (05:55→17:14)
--- NOTE | 2022-01-27 07:17 | PM.PNORT ---
Subjective Subjective Date/Time Seen: 01/27/22 07:17 postop day 2 patient is alert. Did have a mild temperature yesterday. Vital signs are stable. Pain overall is well controlled. Patient is avoiding narcotics is doing well with just Tylenol. Dressing was dry. Patient had a very difficult time with physical therapy yesterday needing max assist. He states that the leg on the right feels weak. He has had prior problems with weakness in his legs. He has had 3 vertebral fractures in the past. He has had difficulty walking since that time. Patient has been easier to assess today on the right leg and he is weak with his right quad as well as right hip flexors. Therefore are 4/5 strength. He has normal dorsiflexion in the right foot. He does state he has no numbness or tingling in either lower extremity. Patient has talked with care coordination and is planning on going to rehab facility for continued care. At some point patient is going to need additional imaging of his low back, he has had L2 and L3 vertebral fractures and this could be causing his long-term weakness in the right leg. This been ongoing for approximately 2 years. Patient will most likely need to stay for an additional night for insurance purposes before being transferred. Objective Data Vital Signs Vital Signs: Vital Signs - 24 hr 01/26/22 08:16 01/26/22 08:44 01/26/22 09:44 Temperature 38.1 C H Pulse Rate 78 68 Respiratory Rate 18 Blood Pressure 141/66 H Pulse Oximetry 97 Oxygen Delivery Room Air 01/26/22 08:00 01/26/22 12:00 01/26/22 13:37 Temperature 36.8 C Pulse Rate 73 67 62 Respiratory Rate 18 Blood Pressure 128/56 L Pulse Oximetry 99 Oxygen Delivery 01/26/22 16:00 01/26/22 17:33 01/26/22 20:00 Temperature 36.2 C L Pulse Rate 66 58 L Respiratory Rate 18 Blood Pressure 142/63 H Pulse Oximetry 98 Oxygen Delivery Room Air 01/26/22 21:52 01/26/22 20:00 01/26/22 20:17 Temperature 36.5 C Pulse Rate 62 59 L Respiratory Rate 18 Blood Pressure 127/52 L Pulse Oximetry 99 96 Oxygen Delivery Room Air 01/27/22 05:54 01/27/22 04:00 Temperature 36.4 C L Pulse Rate 60 54 L Respiratory Rate 18 Blood Pressure 153/63 H Pulse Oximetry 98 Oxygen Delivery Intake/Output Intake/Output: Intake & Output 01/24/22 01/25/22 01/26/22 01/27/22 23:59 23:59 23:59 23:59 Intake Total 700 3182 450 Output Total 1200 1260 300 Balance -500 1922 150 Meds/Results Medications: Active Medications Generic Name Dose Route Start Last Admin Trade Name Freq PRN Reason Stop Dose Admin Acetaminophen 1,000 mg 01/26/22 00:00 01/27/22 05:55 Acetaminophen 500 Mg Tablet PO 1,000 mg Q6H MARIBEL Administration Apixaban 2.5 mg 01/26/22 09:00 01/26/22 20:32 Apixaban 2.5 Mg Tablet PO 2.5 mg Q12HR MARIBEL Administration Aspirin 81 mg 01/26/22 08:00 01/26/22 08:14 Aspirin 81 Mg Chewable Tablet PO 81 mg DAILY@0800 MARIBEL Administration Atorvastatin Calcium 10 mg 01/25/22 09:00 01/26/22 08:16 Atorvastatin 10 Mg Tablet PO 10 mg DAILY MARIBEL Administration Azelastine HCl 1 spray 01/24/22 20:18 Azelastine Hcl Nasal 0.1% 137 Mcg/Spr 30 Ml Btl NASAL BID PRN Nasal Congestion Calcium Citrate 1 tablet 01/25/22 17:00 01/26/22 16:16 Calcium Citrate 315 Mg/Vitamin D 250 Units Tab PO 1 tablet BID MARIBEL Administration Celecoxib 100 mg 01/26/22 08:00 01/26/22 08:15 Celecoxib 100 Mg Capsule PO 100 mg DAILY@0800 MARIBEL Administration Enalapril Maleate 10 mg 01/25/22 09:00 01/26/22 08:17 Enalapril Maleate 10 Mg Tablet PO 10 mg DAILY MARIBEL Administration Ergocalciferol 50,000 unit 01/26/22 09:00 01/26/22 08:21 Ergocalciferol 50,000 Unit Capsule PO 50,000 unit WEEKLY MARIBEL Administration Finasteride 5 mg 01/25/22 09:00 01/26/22 08:15 Finasteride 5 Mg Tablet PO 5 mg DAILY MARIBEL Administration Hydrochlorothiazide 12.5 mg
[2022-01-27 07:47] LABS: Basophils Percent Auto 0.2 % (0.2-1.2); Eosinophils Absolute Auto 0.3 K/mm3 (0-0.3); Hematocrit 36.4 % (42.0-52.0); Hemoglobin 11.7 g/dL (14.0-18.0); Immature Granulocyte Absolute 0.05 K/mm3 (0.00-0.031); Immature Granulocyte Percent A 0.4 % (0-0.5); Lymphocytes Absolute Auto 2.69 K/mm3 (0.9-3.2); Lymphocytes Percent Auto 21.2 % (18.3-44.2); Mean Corpuscular HGB Conc 32.1 g/dl (32-36); Mean Corpuscular Volume 90.1 fl (80-100); Monocytes Percent Auto 7.8 % (2.6-8.5); Neutrophils Absolute Auto 8.7 K/mm3 (1.3-6.7); Neutrophils Percent Auto 68.4 % (45.5-73.1); Platelet Count Result 160 k/mm3 (150-375); Red Blood Count 4.04 M/mm3 (4.6-6.20); Red Cell Distribution Width 13.2 % (11.5-14.5); White Blood Count 12.7 K/mm3 (4.5-10.0)
[2022-01-27 07:52] LABS: Alanine Aminotransferase 16 U/L (6-50); Alkaline Phosphatase 63 U/L (38-126); Anion Gap 5 mmol/L (8-16); Aspartate Amino Transferase 29 U/L (17-59); Bilirubin,Total 0.8 mg/dL (0.2-1.3); Blood Urea Nitrogen 21 mg/dL (9-20); Calcium 7.9 mg/dL (8.4-10.2); Carbon Dioxide 28 mmol/L (22-30); Chloride 102 mmol/L (98-107); Estimated CRCL calculation 76 ml/min; Estimated Glomerular Filt Rate > 60; Glucose 116 mg/dL (65-110); Potassium 3.1 mmol/L (3.4-5.0); Sodium 135 mmol/L (137-145)
[2022-01-27] MEDS: FLUTICASONE/SALMETEROL 115-21 MCG INHALER 1 PUFF 2 PUFF INHALATION ×3 (08:07→22:20)
[2022-01-27] MEDS: NEBIVOLOL HCL 5 MG TABLET 20 MG PO (08:41)
[2022-01-27] MEDS: AZELASTINE HCL NASAL 0.1% 137 MCG/SPR 30 ML BTL 1 SPRAY NASAL (08:41)
[2022-01-27] MEDS: FINASTERIDE 5 MG TABLET PO (08:42)
[2022-01-27] MEDS: TAMSULOSIN HCL 0.4 MG CAPSULE PO (08:42)
[2022-01-27] MEDS: ENALAPRIL MALEATE 10 MG TABLET PO (08:42)
[2022-01-27] MEDS: ASPIRIN 81 MG CHEWABLE TABLET PO (08:42)
[2022-01-27] MEDS: APIXABAN 2.5 MG TABLET PO (08:42)
[2022-01-27] MEDS: CELECOXIB 100 MG CAPSULE PO (08:42)
[2022-01-27] MEDS: SENNA/DOCUSATE SODIUM TABLET 2 TAB PO ×2 (08:43→17:13)
[2022-01-27] MEDS: LORATADINE 10 MG TABLET PO (08:43)
[2022-01-27] MEDS: ATORVASTATIN 10 MG TABLET PO (08:43)
[2022-01-27] MEDS: MONTELUKAST SODIUM 10 MG TABLET PO (08:43)
[2022-01-27] MEDS: hydroCHLOROthiazide 12.5 MG CAPSULE PO (08:43)
--- NOTE | 2022-01-27 12:27 | WPDNEURCNPN ---
Assessment and Plan Assessment and plan (1) Right leg weakness: Code(s): R29.898 - Other symptoms and signs involving the musculoskeletal system Status: Acute Plan right lower extremity weakness even prior to this particular surgical intervention for the fracture rule out the possibility of cervical or thoracic cord intrinsic or extrinsic disease MRI of the cervical spine and thoracic spine has been ordered and further recommendation will be made according Consult date: 01/27/22 Time Seen: 12:00 HPI: Milton Miller is a 76 year old male admitted to the hospital subsequent to the fall resulting in the right hip pain in addition to ongoing history of 1. Coronary artery disease 2. Hypertension 3. Dyslipidemia 4. Bronchial asthma 5. History of loop recorder neuro consultation has been obtained because patient has been Experiencing weakness of the right lower extremity even prior to this particular surgical intervention Review of Systems Review of Systems: All systems reviewed & are unremarkable except as noted in HPI and below PMFSH Past Medical History Medical History Asthma Benign prostate hyperplasia Diastolic dysfunction Dyslipidemia History of atrial fibrillation 1 episode in 2019 when hospitalized for L2 fracture and kyphoplasty Hypertension Hypothyroidism Mild coronary artery disease Minor nonocclusive coronary disease with 20% proximal and 30% LAD stenosis with an EF of 60%. Paroxysmal supraventricular tachycardia PSVT (paroxysmal supraventricular tachycardia) PVCs (premature ventricular contractions) Surgical History Surgical History H/O kyphoplasty Fell off a ladder, burst fracture of L2, 2018 History of cardiac catheterization (2009) History of cataract extraction History of colonoscopy with polypectomy History of loop recorder History of thyroidectomy History of tonsillectomy Family History Family History Father Diabetes mellitus Heart failure Hypertension Cerebrovascular accident Mother Diabetes mellitus Hypertension Legal Guardian No problems noted. Grandparent Cerebrovascular accident Social History Social History Social History: Surrogate decision maker: Saniya Miller, spouse. Code status: Full code. 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 Smoking status: Former smoker Tobacco type: cigarettes Alcohol intake: never Substance use: never Additional living arrangements comments: The patient lives with his in [place]. 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 Spiritual care concerns: No Meds Home Medications and Allergies Home Medications Medication Instructions Recorded Confirmed Type aspirin 81 mg tablet 81 mg PO DAILY 03/13/21 01/24/22 History atorvastatin 10 mg tablet (Lipitor) 10 mg PO DAILY 03/13/21 01/24/22 History azelastine 137 mcg (0.1 %) nasal 137 mcg intranasal BID PRN Nasal 03/13/21 01/24/22 History spray aerosol Congestion cetirizine 10 mg tablet (Zyrtec) 10 mg PO DAILY 03/13/21 01/24/22 History enalapril maleate 20 mg tablet 10 mg PO DAILY 03/13/21 01/24/22 History finasteride 5 mg tablet 5 mg PO DAILY 03/13/21 01/24/22 History fluticasone 250 mcg-salmeterol 50 250 inh inhalation BID 03/13/21 01/24/22 History mcg/dose blistr powdr for inhalation (Advair Diskus) hydrochlorothiazide 12.5 mg tablet 12.5 mg PO DAILY 03/13/21 01/24/22 History ibuprofen 200 mg BYMOUTH Q4-6H PRN Back Pain 03/13/21 01/24/22 History levothyroxine 75 mcg tablet 75 mcg PO DAILY 03/13/21 01/24/22 History montelukast 10 mg tablet 10 mg PO DAILY 03/13/21 01/24/22 History nebivolol 10 mg tablet (Bystolic) 20 mg PO DAILY 03/13/21 01/24/22 History tamsulosin 0.4 m
--- NOTE | 2022-01-27 13:49 | PM.IMPN ---
Progress Note: A&P Assessment and Plan (1) Displaced fracture of right femoral neck: Code(s): S72.001A - Fracture of unspecified part of neck of right femur, initial encounter for closed fracture Status: Acute Assessment and Plan: Postop day 2, he did have some low-grade fevers yesterday was given a dose of Ancef and vancomycin, no fevers since then, white count came down significantly, urinalysis was completely benign Chest x-ray showed possible early pneumonia, however, this does not correlate clinically, will continue to observe off antibiotics Discharge to rehab tomorrow pending insurance approval (2) Hypertension: Code(s): I10 - Essential (primary) hypertension Status: Acute Assessment and Plan: Improved with better pain management (3) Hypothyroidism: Code(s): E03.9 - Hypothyroidism, unspecified Status: Acute Assessment and Plan: Continue levothyroxine, TSH within normal limits (4) Mild coronary artery disease: Code(s): I25.10 - Atherosclerotic heart disease of [place] coronary artery without angina pectoris Status: Chronic Assessment and Plan: Mild coronary artery disease noted on cardiac catheterization in 2009. Recent chemical stress test per Dr. Zamudio was reportedly unremarkable, per patient report. He has not had any exertional chest pain or shortness of breath. (5) Asthma: Code(s): J45.909 - Unspecified asthma, uncomplicated Status: Acute Assessment and Plan: Well controlled. Continue maintenance inhalers. (6) Hypokalemia: Code(s): E87.6 - Hypokalemia Status: Acute Assessment and Plan: Potassium is 3.1 today, will replete, recheck tomorrow Subjective Date/time seen: 01/27/22 13:49 Interval history: Patient resting comfortably in bed using his incentive spirometer. Denies any chest pain shortness a breath. No nausea vomiting diarrhea. No fevers or chills overnight. He is eager to go to rehab and is awaiting a bed. Review of Systems Review of Systems: Twelve point review of systems was reviewed and is negative except as noted in the HPI Exam Narrative: General: Patient resting comfortably in bed, no acute distress HEENT: Atraumatic, normocephalic, mucous membranes moist CV: Regular rate and rhythm, S1, S2, no murmurs rubs or gallops noted Lungs: Clear to auscultation bilaterally, no rales or crackles noted, no wheezes, good air entry Abdomen: Soft, nontender, nondistended Skin: No rashes noted, no lesions or wounds seen Psych: Euthymic, normal affect Neuro: Cranial nerves 2-12 grossly intact, strength 5/5 upper and lower extremities noted Objective Data Vital Signs Vital Signs: Vital Signs - 24 hr 01/26/22 16:00 01/26/22 17:33 01/26/22 20:00 Temperature 97.2 F L Pulse Rate 66 58 L Respiratory Rate 18 Blood Pressure 142/63 H Pulse Oximetry 98 Oxygen Delivery Room Air 01/26/22 21:52 01/26/22 20:00 01/26/22 20:17 Temperature 97.7 F Pulse Rate 62 59 L Respiratory Rate 18 Blood Pressure 127/52 L Pulse Oximetry 99 96 Oxygen Delivery Room Air 01/27/22 05:54 01/27/22 04:00 01/27/22 08:12 Temperature 97.5 F L Pulse Rate 60 54 L 60 Respiratory Rate 18 16 Blood Pressure 153/63 H Pulse Oximetry 98 Oxygen Delivery 01/27/22 08:13 01/27/22 08:41 01/27/22 08:35 Temperature Pulse Rate 68 Respiratory Rate Blood Pressure Pulse Oximetry 95 Oxygen Delivery Room Air Room Air 01/27/22 08:00 Temperature Pulse Rate 66 Respiratory Rate Blood Pressure Pulse Oximetry Oxygen Delivery Intake/Output Intake/Output: Intake & Output 01/24/22 01/25/22 01/26/22 01/27/22 23:59 23:59 23:59 23:59 Intake Total 700 3182 690 Output Total 1200 1260 300 Balance -500 1922 390 Meds/Results Medications: Active Medications Generic Name Dose Route Start Last Admin Trade Name Freq PRN Reaso
[2022-01-27] MEDS: POTASSIUM CHLORIDE 20 MEQ TABLET 40 MEQ PO (15:11)
[2022-01-27] MEDS: APIXABAN 5 MG TABLET PO (20:30)
[2022-01-28] VITALS (12 sets, daily range): BP systolic 146–149; BP diastolic 60–88; PULSE 60–75; RESP 16–20; TEMP 36.1–37.1; O2SAT 95–99
[2022-01-28] MEDS: ACETAMINOPHEN 500 MG TABLET 1000 MG PO ×4 (00:03→17:04)
[2022-01-28] MEDS: LEVOTHYROXINE SODIUM 75 MCG TABLET PO (06:12)
[2022-01-28 06:42] LABS: Basophils Percent Auto 0.3 % (0.2-1.2); Eosinophils Absolute Auto 0.3 K/mm3 (0-0.3); Hematocrit 35.9 % (42.0-52.0); Hemoglobin 11.5 g/dL (14.0-18.0); Immature Granulocyte Absolute 0.02 K/mm3 (0.00-0.031); Immature Granulocyte Percent A 0.2 % (0-0.5); Lymphocytes Absolute Auto 2.82 K/mm3 (0.9-3.2); Lymphocytes Percent Auto 25.4 % (18.3-44.2); Mean Corpuscular Hemoglobin 28.7 pg (26-34); Mean Corpuscular Volume 89.5 fl (80-100); Mean Platelet Volume 10.7 fl (7.4-10.4); Monocytes Absolute Auto 0.8 K/mm3 (0.1-0.6); Monocytes Percent Auto 7.5 % (2.6-8.5); Neutrophils Absolute Auto 7.1 K/mm3 (1.3-6.7); Neutrophils Percent Auto 63.6 % (45.5-73.1); Platelet Count Result 169 k/mm3 (150-375); Red Blood Count 4.01 M/mm3 (4.6-6.20); Red Cell Distribution Width 13.2 % (11.5-14.5); White Blood Count 11.1 K/mm3 (4.5-10.0)
[2022-01-28 06:51] LABS: Alanine Aminotransferase 18 U/L (6-50); Albumin Level 3.2 g/dL (3.5-5.1); Alkaline Phosphatase 73 U/L (38-126); Anion Gap 4 mmol/L (8-16); Aspartate Amino Transferase 27 U/L (17-59); Bilirubin,Total 0.9 mg/dL (0.2-1.3); Blood Urea Nitrogen 16 mg/dL (9-20); Calcium 8.1 mg/dL (8.4-10.2); Carbon Dioxide 29 mmol/L (22-30); Chloride 104 mmol/L (98-107); Estimated CRCL calculation 86 ml/min; Estimated Glomerular Filt Rate > 60; Glucose 114 mg/dL (65-110); Potassium 3.5 mmol/L (3.4-5.0); Sodium 137 mmol/L (137-145)
[2022-01-28] MEDS: ASPIRIN 81 MG CHEWABLE TABLET PO (08:16)
[2022-01-28] MEDS: hydroCHLOROthiazide 12.5 MG CAPSULE PO (08:16)
[2022-01-28] MEDS: ATORVASTATIN 10 MG TABLET PO (08:16)
[2022-01-28] MEDS: FINASTERIDE 5 MG TABLET PO (08:16)
[2022-01-28] MEDS: AZELASTINE HCL NASAL 0.1% 137 MCG/SPR 30 ML BTL 1 SPRAY NASAL (08:16)
[2022-01-28] MEDS: APIXABAN 5 MG TABLET PO ×2 (08:17→20:25)
[2022-01-28] MEDS: CELECOXIB 100 MG CAPSULE PO (08:17)
[2022-01-28] MEDS: NEBIVOLOL HCL 5 MG TABLET 20 MG PO (08:17)
[2022-01-28] MEDS: TAMSULOSIN HCL 0.4 MG CAPSULE PO (08:17)
[2022-01-28] MEDS: MONTELUKAST SODIUM 10 MG TABLET PO (08:17)
[2022-01-28] MEDS: ENALAPRIL MALEATE 10 MG TABLET PO (08:17)
[2022-01-28] MEDS: LORATADINE 10 MG TABLET PO (08:17)
[2022-01-28] MEDS: SENNA/DOCUSATE SODIUM TABLET 2 TAB PO ×2 (08:17→17:03)
[2022-01-28] MEDS: FLUTICASONE/SALMETEROL 115-21 MCG INHALER 1 PUFF 2 PUFF INHALATION ×2 (09:04→20:02)
--- NOTE | 2022-01-28 10:56 | PM.PNORT ---
Progress Note: A&P Assessment and Plan (1) Displaced fracture of right femoral neck: Code(s): S72.001A - Fracture of unspecified part of neck of right femur, initial encounter for closed fracture Status: Acute Plan Patient is now postoperative day 3. After Press-Fit bipolar hemiarthroplasty right hip. He is feeling well. He is alert and communicative. Hemoglobin is 11.5 representing an acute blood loss anemia. White count 11.1 nonspecific. Platelets [id number]. I examined him yesterday morning and discussed his prior history of right leg weakness. He does have some confusion. He recall that the spine fracture was in 2003 where in reality it was in 2019 and this was treated with a kyphoplasty at [facility]. Subsequent to this he was evaluated at [facility] by a neurologist for his back but it was not clear what conclusions were drawn. Patient has had sensation of weakness in the right leg ever since his 2019 burst fracture at L2 which was treated nonsurgically but subsequently treated with vertebroplasty or kyphoplasty. He tells me that his has noted that he drags his right foot and sometimes she seems to turn it out but the right leg is been his weak leg. Initially after this fracture he was able to get by with a cane but over the last year and half to 2 years he has had use the walker continuously and the reason he fell was because he was lower [place] for his walker and missed it. On my exam yesterday he had most notable weakness in knee extension and he has complained to me that he can not lift his leg while in bed but that could certainly be related to the fact he is just had a anterolateral approach hemiarthroplasty of the right hip which would tend to cause some soreness due to the Surgical Trauma of iliopsoas and the anterior gluteus medius minimus and decreased affect of the tensor fascia cory muscle due to the longitudinal incision through the iliotibial band. But a my examination yesterday he could not fully extend his knee with his knee thoroughly supported by my hand against the wall, against the weight of gravity. His motor strength seemed intact in all other muscle groups of the right lower extremity on manual muscle testing with the exception of hip flexion strength. He denies any numbness to light touch testing and has not had problems with numbness or tingling. He had a 2+ knee jerk reflex on the right equal to the left. Markedly diminished ankle reflexes bilaterally is somewhat nonspecific at his age. I reviewed the cervical spine thoracic spine and lumbar spine MRIs. My suspicion was that he had an L3 radiculopathy complicating his L2 burst fracture and in fact the MRI of the lumbar spine does show severe foraminal stenosis on the right at L2-3 which would be expected to injure the L2 nerve root and lateral recess stenosis at that level could injure the L3 nerve root. Either of these nerve roots being injured could result in the quadriceps weakness he exhibits. I think it would be appropriate to consult Dr. Barrios the neurosurgeon for his opinion with respect to whether surgical decompression would be appropriate. I think that obtaining an EMG nerve conduction velocity study of the lower extremities may be helpful as well as if this showed evidence of L2 or L3 denervation on the right, this would be supporting evidence that his right lower extremity weakness and his inability walk without a walker due to the right leg being weak is related to the L2-3 burst fracture secondary canal and neuroforaminal stenosis. He did a couple of steps with the stairs yesterday side steps. He is tolerating putting weight on the right leg. He has pain when he is moving the right hip actively which is expected. This dressing on the right hip is dry. Subjective Subjective Date/Time Seen: 01/28/22 10:56 Objective Data Vital Signs Vital Signs: Vital Signs - 24 hr 01/27/22 14:00 01/27/22 21:51 01/27/22 22:
--- NOTE | 2022-01-28 12:25 | PM.IMPN ---
Progress Note: A&P Assessment and Plan (1) Displaced fracture of right femoral neck: Code(s): S72.001A - Fracture of unspecified part of neck of right femur, initial encounter for closed fracture Status: Acute Assessment and Plan: Postop day 2, he did have some low-grade fevers yesterday was given a dose of Ancef and vancomycin, no fevers since then, white count came down significantly, urinalysis was completely benign Chest x-ray showed possible early pneumonia, however, this does not correlate clinically, will continue to observe off antibiotics Discharge to rehab tomorrow pending insurance approval (2) Hypertension: Code(s): I10 - Essential (primary) hypertension Status: Acute Assessment and Plan: Improved with better pain management (3) Hypothyroidism: Code(s): E03.9 - Hypothyroidism, unspecified Status: Acute Assessment and Plan: Continue levothyroxine, TSH within normal limits (4) Mild coronary artery disease: Code(s): I25.10 - Atherosclerotic heart disease of [place] coronary artery without angina pectoris Status: Chronic Assessment and Plan: Mild coronary artery disease noted on cardiac catheterization in 2009. Recent chemical stress test per Dr. Zamudio was reportedly unremarkable, per patient report. He has not had any exertional chest pain or shortness of breath. (5) Asthma: Code(s): J45.909 - Unspecified asthma, uncomplicated Status: Acute Assessment and Plan: Well controlled. Continue maintenance inhalers. (6) Hypokalemia: Code(s): E87.6 - Hypokalemia Status: Acute Assessment and Plan: Resolved Subjective Date/time seen: 01/28/22 12:25 Interval history: Patient resting comfortably in bed, no complaints. Denies chest pain shortness a breath. No overnight events noted. No nausea vomiting diarrhea, no abdominal pain. He is eager to go to rehab. Bed awaiting insurance approval. Review of Systems Review of Systems: Twelve point review of systems was reviewed and is negative except as noted in the HPI Exam Narrative: General: Patient resting comfortably in bed, no acute distress HEENT: Atraumatic, normocephalic, mucous membranes moist CV: Regular rate and rhythm, S1, S2, no murmurs rubs or gallops noted Lungs: Clear to auscultation bilaterally, no rales or crackles noted, no wheezes, good air entry Abdomen: Soft, nontender, nondistended Skin: No rashes noted, no lesions or wounds seen Psych: Euthymic, normal affect Neuro: Cranial nerves 2-12 grossly intact, strength 5/5 upper and lower extremities noted Objective Data Vital Signs Vital Signs: Vital Signs - 24 hr 01/27/22 14:00 01/27/22 21:51 01/27/22 22:22 Temperature 98.0 F 98.2 F Pulse Rate 63 66 Respiratory Rate 16 18 Blood Pressure 144/53 H 156/56 H Pulse Oximetry 96 97 96 Oxygen Delivery Room Air 01/27/22 20:00 01/27/22 20:00 01/28/22 00:00 Temperature Pulse Rate 63 70 Respiratory Rate Blood Pressure Pulse Oximetry Oxygen Delivery Room Air 01/28/22 04:00 01/28/22 05:31 01/28/22 08:17 Temperature 97.6 F Pulse Rate 60 64 72 Respiratory Rate 17 Blood Pressure 146/88 H Pulse Oximetry 95 Oxygen Delivery 01/28/22 09:09 01/28/22 08:30 01/28/22 08:00 Temperature Pulse Rate 61 Respiratory Rate Blood Pressure Pulse Oximetry 99 Oxygen Delivery Room Air Room Air Intake/Output Intake/Output: Intake & Output 01/25/22 01/26/22 01/27/22 01/28/22 23:59 23:59 23:59 23:59 Intake Total 700 3182 1702 610 Output Total 1200 1260 551 Balance -500 1922 1151 610 Meds/Results Medications: Active Medications Generic Name Dose Route Start Last Admin Trade Name Mario Albertoq PRN Reason Stop Dose Admin Acetaminophen 1,000 mg 01/26/22 00:00 01/28/22 11:38 Acetaminophen 500 Mg Tablet PO 1,000 mg Q6H MARIBEL Administration Apixaban 5 m
--- NOTE | 2022-01-28 14:18 | PC.NURSE ---
spoke with dr Cueva, pt may f/u with neuro surgery as out pt.
[2022-01-29] VITALS (8 sets, daily range): BP systolic 170; BP diastolic 80; PULSE 55–94; RESP 18–20; TEMP 36.2–36.9; O2SAT 96–100
[2022-01-29] MEDS: ACETAMINOPHEN 500 MG TABLET 1000 MG PO ×4 (00:07→17:01)
[2022-01-29] MEDS: LEVOTHYROXINE SODIUM 75 MCG TABLET PO (06:00)
[2022-01-29] MEDS: AZELASTINE HCL NASAL 0.1% 137 MCG/SPR 30 ML BTL 1 SPRAY NASAL (08:03)
[2022-01-29] MEDS: NEBIVOLOL HCL 5 MG TABLET 20 MG PO (08:03)
[2022-01-29] MEDS: APIXABAN 5 MG TABLET PO (08:04)
[2022-01-29] MEDS: hydroCHLOROthiazide 12.5 MG CAPSULE PO (08:04)
[2022-01-29] MEDS: CELECOXIB 100 MG CAPSULE PO (08:04)
[2022-01-29] MEDS: ASPIRIN 81 MG CHEWABLE TABLET PO (08:04)
[2022-01-29] MEDS: MONTELUKAST SODIUM 10 MG TABLET PO (08:04)
[2022-01-29] MEDS: ATORVASTATIN 10 MG TABLET PO (08:04)
[2022-01-29] MEDS: SENNA/DOCUSATE SODIUM TABLET 2 TAB PO ×2 (08:04→17:01)
[2022-01-29] MEDS: FINASTERIDE 5 MG TABLET PO (08:04)
[2022-01-29] MEDS: LORATADINE 10 MG TABLET PO (08:05)
[2022-01-29] MEDS: TAMSULOSIN HCL 0.4 MG CAPSULE PO (08:05)
[2022-01-29] MEDS: ENALAPRIL MALEATE 10 MG TABLET PO (08:05)
[2022-01-29] MEDS: FLUTICASONE/SALMETEROL 115-21 MCG INHALER 1 PUFF 2 PUFF INHALATION (08:27)
--- NOTE | 2022-01-29 10:22 | WPDNEUROPN ---
Progress Note: A&P Assessment and Plan (1) Spinal stenosis: Code(s): M48.00 - Spinal stenosis, site unspecified Status: Acute Plan as mentioned above patient does have cervical stenosis at multiple levels of mild degrees but that will not explain the weakness of the right lower extremity he will be scheduled for the EMG and nerve conduction study as an outpatient of lower extremities at this stage she can be discharged instruction to call our office in about couple of months when the orthopedic care is completed Time Spent With Patient Time with patient: 15 - 25 minutes Subjective Date/time seen: 01/29/22 10:22 Interval history: Initially seen on the complaints of right lower extremity weakness, considering that weakness was there even before patient sustained this fracture MRI of the cervical and thoracic spine were ordered to make sure there is no cervical or thoracic myelopathy on the basis of the intrinsic or extrinsic lesion, MRI of the lumbar spine documented severe lumbar spondylosis is stable from March 13, 2021 with no evidence of spinal stenosis, MRI of thoracic spine documented mild carotic anterior wedging of T7-T11 in addition to hemangioma of T4 vertebral body and decreased disc height from T8-E9-Q12-T11 and T9-T10 in addition to left central protrusion and mild central canal stenosis additionally seen significant neural foraminal stenosis and MRI of cervical spine documented only mild central canal stenosis at C4-5 C6 and 7 and C5 and C6 in addition to see 71 left central protrusion considering all these studies as no acute surgical intervention is warranted patient will be scheduled to have the EMG nerve conduction study of the lower extremities as an outpatient Review of Systems Review of Systems: All systems reviewed & are unremarkable except as noted in HPI and below Objective Data Vital Signs Vital Signs: Vital Signs - 24 hr 01/28/22 12:00 01/28/22 14:00 01/28/22 16:00 Temperature 36.1 C L Pulse Rate 61 64 61 Respiratory Rate 20 Blood Pressure 147/68 H Pulse Oximetry 98 Oxygen Delivery 01/28/22 20:02 01/28/22 20:02 01/28/22 20:00 Temperature Pulse Rate 61 61 Respiratory Rate 18 18 Blood Pressure Pulse Oximetry 98 Oxygen Delivery Room Air Room Air 01/28/22 22:00 01/28/22 20:00 01/29/22 00:00 Temperature 37.1 C Pulse Rate 75 63 70 Respiratory Rate 16 Blood Pressure 149/60 H Pulse Oximetry 95 Oxygen Delivery 01/29/22 04:00 01/29/22 06:00 01/29/22 08:03 Temperature 36.9 C Pulse Rate 64 69 88 Respiratory Rate 18 Blood Pressure 170/80 H Pulse Oximetry 96 Oxygen Delivery 01/29/22 08:00 01/29/22 08:31 Temperature Pulse Rate Respiratory Rate Blood Pressure Pulse Oximetry 96 Oxygen Delivery Room Air Room Air Intake/Output Intake/Output: Intake & Output 01/26/22 01/27/22 01/28/22 01/29/22 23:59 23:59 23:59 23:59 Intake Total 3182 1702 1880 550 Output Total 1260 657 895 5238 Balance 1922 1151 1580 -700 Meds/Results Medications: Active Medications Generic Name Dose Route Start Last Admin Trade Name Freq PRN Reason Stop Dose Admin Acetaminophen 1,000 mg 01/26/22 00:00 01/29/22 06:00 Acetaminophen 500 Mg Tablet PO 1,000 mg Q6H MARIBEL Administration Apixaban 5 mg 01/27/22 21:00 01/29/22 08:04 Apixaban 5 Mg Tablet PO 5 mg Q12HR MARIBEL Administration Aspirin 81 mg 01/26/22 08:00 01/29/22 08:04 Aspirin 81 Mg Chewable Tablet PO 81 mg DAILY@0800 MARIBEL Administration Atorvastatin Calcium 10 mg 01/25/22 09:00 01/29/22 08:04 Atorvastatin 10 Mg Tablet PO 10 mg DAILY MARIBEL Administration Azelastine HCl 1 spray 01/24/22 20:18 01/29/22 08:03 Azelastine Hcl Nasal 0.1% 137 Mcg/Spr 30 Ml Btl NASAL 1 spray BID PRN Administration Nasal Congestion Calcium Citrate 1 tablet 01/25/22 17:00 01/29/22 08:04 Calcium Citrate 315 Mg/Vitamin D 250 Units Tab PO
--- NOTE | 2022-01-29 12:02 | PM.IMPN ---
Progress Note: A&P Assessment and Plan (1) Displaced fracture of right femoral neck: Code(s): S72.001A - Fracture of unspecified part of neck of right femur, initial encounter for closed fracture Status: Acute Assessment and Plan: Postop day 2, he did have some low-grade fevers yesterday was given a dose of Ancef and vancomycin, no fevers since then, white count came down significantly, urinalysis was completely benign Chest x-ray showed possible early pneumonia, however, this does not correlate clinically, will continue to observe off antibiotics Discharge to rehab pending insurance approval (2) Hypertension: Code(s): I10 - Essential (primary) hypertension Status: Acute Assessment and Plan: Improved with better pain management (3) Hypothyroidism: Code(s): E03.9 - Hypothyroidism, unspecified Status: Acute Assessment and Plan: Continue levothyroxine, TSH within normal limits (4) Mild coronary artery disease: Code(s): I25.10 - Atherosclerotic heart disease of [place] coronary artery without angina pectoris Status: Chronic Assessment and Plan: Mild coronary artery disease noted on cardiac catheterization in 2009. Recent chemical stress test per Dr. Zamudio was reportedly unremarkable, per patient report. He has not had any exertional chest pain or shortness of breath. (5) Asthma: Code(s): J45.909 - Unspecified asthma, uncomplicated Status: Acute Assessment and Plan: Well controlled. Continue maintenance inhalers. (6) Hypokalemia: Code(s): E87.6 - Hypokalemia Status: Acute Assessment and Plan: Resolved Additional Plan Per Neurology consultation: Patient has known severe spondylosis without evidence of spinal canal stenosis, these marrow may not be related to his lower extremity weakness, there is canal stenosis noted through the thoracic inlet and cervical vertebrae is. Neurology would like to have an EMG conducted on the lower extremities as an outpatient and possible surgical intervention to the thoracic and cervical canal if the patient became symptomatic. Subjective Date/time seen: 01/29/22 12:02 Interval history: Patient sitting up in chair with no complaints. He is eager to get to rehab. He is frustrated with how long it is taking insurance to approve his rehab stay. He denies chest pain or shortness of breath. No fevers or chills. No overnight events. Review of Systems Review of Systems: Twelve point review of systems was reviewed and is negative except as noted in the HPI Exam Narrative: General: Patient resting comfortably in bed, no acute distress HEENT: Atraumatic, normocephalic, mucous membranes moist CV: Regular rate and rhythm, S1, S2, no murmurs rubs or gallops noted Lungs: Clear to auscultation bilaterally, no rales or crackles noted, no wheezes, good air entry Abdomen: Soft, nontender, nondistended Skin: No rashes noted, no lesions or wounds seen Psych: Euthymic, normal affect Neuro: Cranial nerves 2-12 grossly intact, strength 5/5 upper and lower extremities noted Objective Data Vital Signs Vital Signs: Vital Signs - 24 hr 01/28/22 14:00 01/28/22 16:00 01/28/22 20:02 Temperature 97.0 F L Pulse Rate 64 61 61 Respiratory Rate 20 18 Blood Pressure 147/68 H Pulse Oximetry 98 98 Oxygen Delivery Room Air 01/28/22 20:02 01/28/22 20:00 01/28/22 22:00 Temperature 98.7 F Pulse Rate 61 75 Respiratory Rate 18 16 Blood Pressure 149/60 H Pulse Oximetry 95 Oxygen Delivery Room Air 01/28/22 20:00 01/29/22 00:00 01/29/22 04:00 Temperature Pulse Rate 63 70 64 Respiratory Rate Blood Pressure Pulse Oximetry Oxygen Delivery 01/29/22 06:00 01/29/22 08:03 01/29/22 08:00 Temperature 98.4 F Pulse Rate 69 88 Respiratory Rate 18 Blood Pressure 170/80 H Pulse Oximetry 96 Oxygen Delivery Room Air 01/29/22
[2022-01-29 13:36] LABS: EDCOVIDSCREEN Negative (Negative)
--- NOTE | 2022-01-29 17:10 | PM.DS ---
DS: Admitting Diagnosis Discharge Date January 29, 2022 Admitting Diagnosis Right hip pain from a displaced right femoral neck fracture DS: Discharge Diagnosis Discharge Diagnosis (1) Displaced fracture of right femoral neck: Code(s): S72.001A - Fracture of unspecified part of neck of right femur, initial encounter for closed fracture Status: Acute Assessment and Plan: Postop day 2, he did have some low-grade fevers yesterday was given a dose of Ancef and vancomycin, no fevers since then, white count came down significantly, urinalysis was completely benign Chest x-ray showed possible early pneumonia, however, this does not correlate clinically, will continue to observe off antibiotics Discharge to rehab pending insurance approval (2) Hypertension: Code(s): I10 - Essential (primary) hypertension Status: Acute Assessment and Plan: Improved with better pain management (3) Hypothyroidism: Code(s): E03.9 - Hypothyroidism, unspecified Status: Acute Assessment and Plan: Continue levothyroxine, TSH within normal limits (4) Mild coronary artery disease: Code(s): I25.10 - Atherosclerotic heart disease of [place] coronary artery without angina pectoris Status: Chronic Assessment and Plan: Mild coronary artery disease noted on cardiac catheterization in 2009. Recent chemical stress test per Dr. Zamudio was reportedly unremarkable, per patient report. He has not had any exertional chest pain or shortness of breath. (5) Asthma: Code(s): J45.909 - Unspecified asthma, uncomplicated Status: Acute Assessment and Plan: Well controlled. Continue maintenance inhalers. (6) Hypokalemia: Code(s): E87.6 - Hypokalemia Status: Acute Assessment and Plan: Resolved DS: Summary Hospital Course Reason for hospitalization: Right femoral neck fracture Hospital Course: 76-year-old male with past medical history significant for coronary artery disease, hypertension, hyperlipidemia, asthma, bradycardia with history of syncopal episodes and implantable loop recorder presented to the ER with right hip pain after a fall. He states he has been having problems with his back recently despite going to PT. he has been using a walker due to his severe back pain and he actually fell when he was reaching for his walker onto his right hip. He had immediate pain in the right leg was unable to get up. In the ER, he was found have a displaced right femoral neck fracture and is being admitted for this. Orthopedic surgery was consulted and recommended operative repair. Cardiology was consulted for cardiac clearance. Cardiology stated the patient would be low risk for surgery and recommended going forward with the procedure. They did not recommend an echo or a stress test prior to the procedure. His home medications were continued new was taken to the OR on January 25, 2022. He tolerated the procedure well without any complications. Hemoglobin remains stable pre and postoperatively. Pain was well controlled and he participated with PT. It was determined that he would need rehab at discharge. On postop day 2 the patient had some low-grade fevers and was given a single dose of Ancef and vancomycin. No source was identified other than possible atelectasis and antibiotics were discontinued. Patient continued to improve, no further fevers or leukocytosis were noted. Neurology was consulted due to his severe spondylosis likely contributing to his initial fall that brought him in with his femur fracture. MRI of cervical thoracic and lumbar spine was performed and completed showing significant central canal stenosis of the cervical spine with severe spondylosis of the lumbar spine and some minor arthritis noted in the thoracic spine. Patient does have a neurosurgeon he has worked with previously due to his prior back surgeries and would like the imaging sent to them
== END 2022-01-29 18:15 | DRG 522 ==
LOC: ANHED 16:09 → ANH3MEDSUR 16:56
PROVIDERS: Orthopaedic Surgery; Physician Assistant; Physician Assistant Surgical; Admitting Provider Family Medicine; Emergency Provider Emergency Medicine; Visit Provider Student in an Organized Health Care Education/Training Program
PROC: 0SRR01A Replacement of Right Hip Joint, Femoral Surface with Metal Synthetic Substitute, Uncemented, Open Approach (ICD-10-PCS; CPT 27125; principal; 2022-01-25 16:30)
DX: S72.001A Fracture of unspecified part of neck of right femur, initial encounter for closed fracture (principal); D62 Acute posthemorrhagic anemia; J98.11 Atelectasis; R50.82 Postprocedural fever; W19.XXXA Unspecified fall, initial encounter; I10 Essential (primary) hypertension; E03.9 Hypothyroidism, unspecified; I25.10 Atherosclerotic heart disease of native coronary artery without angina pectoris; E87.6 Hypokalemia; E78.5 Hyperlipidemia, unspecified; Z20.822 Contact with and (suspected) exposure to COVID-19; N40.0 Benign prostatic hyperplasia without lower urinary tract symptoms; J45.909 Unspecified asthma, uncomplicated; I49.3 Ventricular premature depolarization; M47.896 Other spondylosis, lumbar region; M47.894 Other spondylosis, thoracic region; Z87.891 Personal history of nicotine dependence; Z98.49 Cataract extraction status, unspecified eye; Z79.82 Long term (current) use of aspirin; M48.061 Spinal stenosis, lumbar region without neurogenic claudication; S32.02 Fracture of second lumbar vertebra; S32.031S Stable burst fracture of third lumbar vertebra, sequela
CPT/HCPCS: 36415; 71045; 72148; 72156; 72157; 73501; 73502; 73700; 80048; 80053; 81001; 82306; 83735; 84134; 84145; 84443; 85025; 85027; 85610; 85730; 86850; 86900; 86901; 87040; 87426; 88305; 88307; 88311; 93005; 93306; 94640; 97110; 97162; 97166; 97530; 97535; 99285; A9270; A9577; C9803; J0131; J0171; J0330; J0690; J1100; J1170; J2370; J2405; J2704; J2795; J3010; J3370; J3480; J7030; J7120; U0003; U0005

== ENCOUNTER 2022-04-26 14:01 | Emergency (ER) | payer MEDICARE, SELFPAY ==
[2022-04-26 14:16] VITALS: BP 183/87; PULSE 107; RESP 16; TEMP 36.8; O2SAT 98
--- NOTE | 2022-04-26 14:48 | ED.EPISTAXIS ---
HPI - Epistaxis General Chief complaint: Epistaxis <RAJI Hernandez Last Filed: 04/26/22 20:37> Stated complaint: epistaxis for days now <RAJI Hernandez Last Filed: 04/26/22 20:37> Time Seen by Provider: 04/26/22 14:33 <RAJI Hernandez Last Filed: 04/26/22 20:37> History of Present Illness HPI Narrative: Patient is a 76-year-old male here for evaluation of intermittent nosebleeds on the right nare over the past week. States that he has been able to get them under control with pressure and ice but states the frequency of their occurrence is bothersome to him. At time of my evaluation patient is not actively bleeding. He does take aspirin. Denies weakness lightheadedness, fevers or chills. Denies trauma to the nose or obvious triggers for nosebleeds. <RAJI Hernandez Last Filed: 04/26/22 20:37> Related Data Home medications: Home Medications Medication Instructions Recorded Confirmed aspirin 81 mg tablet 81 mg PO DAILY 03/13/21 01/24/22 atorvastatin 10 mg tablet (Lipitor) 10 mg PO DAILY 03/13/21 01/24/22 azelastine 137 mcg (0.1 %) nasal 137 mcg intranasal BID PRN Nasal 03/13/21 01/24/22 spray aerosol Congestion cetirizine 10 mg tablet (Zyrtec) 10 mg PO DAILY 03/13/21 01/24/22 enalapril maleate 20 mg tablet 10 mg PO DAILY 03/13/21 01/24/22 finasteride 5 mg tablet 5 mg PO DAILY 03/13/21 01/24/22 fluticasone 250 mcg-salmeterol 50 250 inh inhalation BID 03/13/21 01/24/22 mcg/dose blistr powdr for inhalation (Advair Diskus) hydrochlorothiazide 12.5 mg tablet 12.5 mg PO DAILY 03/13/21 01/24/22 levothyroxine 75 mcg tablet 75 mcg PO DAILY 03/13/21 01/24/22 montelukast 10 mg tablet 10 mg PO DAILY 03/13/21 01/24/22 nebivolol 10 mg tablet (Bystolic) 20 mg PO DAILY 03/13/21 01/24/22 tamsulosin 0.4 mg capsule 0.4 mg PO DAILY 03/13/21 01/24/22 albuterol sulfate 90 mcg/actuation inhalation 04/26/22 aerosol inhaler fluticasone 250 mcg-salmeterol 50 inhalation 04/26/22 mcg/dose blistr powdr for inhalation (Advair Diskus) ketotifen fumarate 0.025 % (0.035 drp 04/26/22 %) eye drops ([place]) nebivolol 20 mg tablet (Bystolic) 20 mg PO DAILY 04/26/22 04/26/22 <Jacqui Nash PA-C - Last Filed: 04/26/22 20:37> Allergies/adverse reactions: Allergies Allergy/AdvReac Type Severity Reaction Status Date / Time codeine Allergy Mild Itching Verified 04/26/22 15:05 Penicillins Allergy Mild Hives Verified 04/26/22 15:05 Calcium Channel Blocking Allergy Unknown SEE NOTE Verified 04/26/22 15:05 Agents-Dih zolpidem [From Ambien] Allergy Nightmare Verified 04/26/22 15:05 amlodipine AdvReac Severe SOB, Verified 04/26/22 15:05 JITTERY, INCREASED BLOOD PRESSURE <Jacqui Nash PA-C - Last Filed: 04/26/22 20:37> Review of Systems Review of Systems: Gen: Denies fevers or chills Eyes: Denies eye pain or visual change ENT: reports nosebleed Respiratory: Denies shortness of breath or cough CV: Denies chest pain or palpitations GI: Denies abdominal pain nausea, emesis or diarrhea : denies burning, urgency, frequency or hematuria Musculoskeletal: Denies back pain or muscle pain Neuro: Denies numbness, tingling, weakness or focal weakness Skin: Denies rash Except as documented, all other systems reviewed and negative <Jacqui Nash PA-C - Last Filed: 04/26/22 20:37> PMFSH Past Medical History Medical History: Medical History Asthma Benign prostate hyperplasia Diastolic dysfunction Dyslipidemia History of atrial fibrillation 1 episode in 2019 when hospitalized for L2 fracture and kyphoplasty Hypertension Hypothyroidism Mild coronary artery disease Minor nonocclusive coronary disease with 20% proximal and 30% LAD stenosis with an EF of 60%. Paroxysmal supraventricular tachycardia PSVT (paroxysmal supraventricular tachycard
[2022-04-26 15:16] LABS: Basophils Percent Auto 0.5 % (0.2-1.2); Eosinophils Percent Auto 0.5 % (0-4.4); Hematocrit 37.4 % (42.0-52.0); Hemoglobin 11.9 g/dL (14.0-18.0); Immature Granulocyte Absolute 0.01 K/mm3 (0.00-0.031); Immature Granulocyte Percent A 0.2 % (0-0.5); Lymphocytes Absolute Auto 2.84 K/mm3 (0.9-3.2); Lymphocytes Percent Auto 48.7 % (18.3-44.2); Mean Corpuscular HGB Conc 31.8 g/dl (32-36); Mean Corpuscular Hemoglobin 28.5 pg (26-34); Mean Corpuscular Volume 89.7 fl (80-100); Mean Platelet Volume 10.2 fl (7.4-10.4); Monocytes Absolute Auto 0.3 K/mm3 (0.1-0.6); Monocytes Percent Auto 5.1 % (2.6-8.5); Neutrophils Absolute Auto 2.6 K/mm3 (1.3-6.7); Platelet Count Result 200 k/mm3 (150-375); Red Blood Count 4.17 M/mm3 (4.6-6.20); Red Cell Distribution Width 13.3 % (11.5-14.5); White Blood Count 5.8 K/mm3 (4.5-10.0)
[2022-04-26 15:28] LABS: INR 1.3; Prothrombin Time 15.2 Seconds (11.1-14.7)
[2022-04-26 15:29] LABS: Partial Thromboplastin Time 29.6 SECONDS (22.3-36.8)
[2022-04-26 16:15] VITALS: BP 146/67; PULSE 50; RESP 16; O2SAT 99
== END 2022-04-26 16:15 | disposition home or self-care (01) ==
PROVIDERS: Physician Assistant; Emergency Provider Emergency Medicine
DX: R04.0 Epistaxis (principal); I10 Essential (primary) hypertension; I25.10 Atherosclerotic heart disease of native coronary artery without angina pectoris; J45.909 Unspecified asthma, uncomplicated; E78.5 Hyperlipidemia, unspecified; E89.0 Postprocedural hypothyroidism; N40.0 Benign prostatic hyperplasia without lower urinary tract symptoms; Z98.49 Cataract extraction status, unspecified eye; Z87.891 Personal history of nicotine dependence; Z79.01 Long term (current) use of anticoagulants; Z79.82 Long term (current) use of aspirin
CPT/HCPCS: 36415; 85025; 85610; 85730; 99283; A9270

== ENCOUNTER 2025-02-07 06:48 | Observation (INO) | payer MEDICARE, SELFPAY ==
[2025-02-07] VITALS (24 sets, daily range): BP systolic 107–163; BP diastolic 61–103; PULSE 50–143; RESP 11–20; TEMP 36.4–36.9; O2SAT 96–100; BMI 24.4
--- NOTE | ~2025-02-07 | XR_ITS ---
EXAMINATION: XR chest 2V DATE: 02/07/2025 07:17 INDICATION: Palpitations TECHNIQUE: frontal and lateral views of the chest were obtained. COMPARISON: Chest radiograph dated 01/26/2022 FINDINGS: The lungs are clear with no focal airspace opacities, pulmonary edema, pleural effusion or pneumothor ax. The cardiomediastinal silhouette is normal. Mild thoracic spondylosis with chronic appearing mild anterior wedging of a few mid to lower thoracic vertebral bodies. Upper lumbar compression fractures with prior vertebroplasty. IMPRESSION: 1. No acute cardiopulmonary disease. Reviewed, dictated and finalized at location A.
--- NOTE | 2025-02-07 07:00 | ECG_ITS ---
Test Date: 2025-02-07 06:53:39 Measurements Intervals [place] Rate: 121 P: 0 [place]: 0 QRS: 12 QRSD: 92 T: 61 QT: 305 QTc: 434 Interpretive Statements ATRIAL FIBRILLATION WITH RAPID VENTRICULAR RESPONSE WITH ABERRANT CONDUCTION OR VENTRICULAR PREMATURE COMPLEXES BORDERLINE ST-T WAVE ABNORMALITY- LAT/HIGH LAT LEADS BASELINE ARTIFACT- I, II, AVR, AVL, AVF, V3-V4 ABNORMAL ECG No previous ECG available for comparison Electronically Signed On 02-07-2025 07:22:29 CDT by Trae You D.O.
[2025-02-07 07:07] LABS: Basophils Percent Auto 0.4 % (0.2-1.2); Eosinophils Absolute Auto 0.1 K/mm3 (0-0.3); Eosinophils Percent Auto 1.6 % (0-4.4); Hematocrit 40.7 % (42.0-52.0); Hemoglobin 13.2 g/dL (14.0-18.0); Immature Granulocyte Absolute 0.01 K/mm3 (0.00-0.031); Immature Granulocyte Percent A 0.1 % (0-0.5); Lymphocytes Absolute Auto 5.02 K/mm3 (0.9-3.2); Mean Corpuscular HGB Conc 32.4 g/dl (32-36); Mean Corpuscular Hemoglobin 29.1 pg (26-34); Mean Corpuscular Volume 89.6 fl (80-100); Monocytes Absolute Auto 0.6 K/mm3 (0.1-0.6); Monocytes Percent Auto 7.2 % (2.6-8.5); Neutrophils Absolute Auto 2.2 K/mm3 (1.3-6.7); Neutrophils Percent Auto 27.7 % (45.5-73.1); Platelet Count Result 212 k/mm3 (150-375); Red Blood Count 4.54 M/mm3 (4.6-6.20); Red Cell Distribution Width 12.8 % (11.5-14.5)
[2025-02-07 07:20] LABS: INR 1.1; Prothrombin Time 14.8 Seconds (11.1-14.7)
[2025-02-07 07:21] LABS: Partial Thromboplastin Time 28.7 Seconds (22.3-36.8)
[2025-02-07 07:24] LABS: Alanine Aminotransferase 20 U/L (6-50); Albumin Level 4.2 g/dL (3.5-5.1); Alkaline Phosphatase 68 U/L (38-126); Anion Gap 7 mmol/L (4-12); Aspartate Amino Transferase 25 U/L (17-59); Bilirubin,Total 0.5 mg/dL (0.2-1.3); Blood Urea Nitrogen 26 mg/dL (9-20); Calcium 9.7 mg/dL (8.4-10.2); Carbon Dioxide 29 mmol/L (22-30); Chloride 104 mmol/L (98-107); Estimated CRCL calculation 77 ml/min; Estimated Glomerular Filt Rate > 60; Glucose 115 mg/dL (65-110); Lipase 23 U/L (23-300); Potassium 3.6 mmol/L (3.4-5.0); Sodium 140 mmol/L (137-145); Total Protein 6.9 g/dL (6.3-8.2)
--- NOTE | 2025-02-07 07:24 | ED.ARRPALP ---
HPI - Arrhythmia/Palpitations General Chief Complaint: Arrhythmia/Palpitations Stated Complaint: chest palp Time Seen by Provider: 02/07/25 07:01 Source: patient, family and RN notes reviewed Mode of arrival: EMS Limitations: no limitations History of Present Illness HPI narrative: Patient presents with report of palpitations. He states that he always has palpitations given he has a history of atrial fibrillation however his heart feels like it is racing and that it is going to jump out of my chest.This started at 3:00 a.m. and seemed to slow around 6:00 a.m. but is still present. RN had noted that patient has palpable pulse rate was in the 66 70s but on the monitor showed variability between 130s and 160s. Patient denies any chest pain or shortness of breath. He notes that he occasionally has a cough but attributes this to his asthma for which he is compliant with his inhaler twice daily. He is not on any current anticoagulation. He had previously been on anticoagulation but this was discontinued in 2018 due to bruising. He now just takes aspirin daily. Patient had been on nebivolol as well as at 1 time amlodipine but is currently on losartan/hydrochlorothiazide. This change was made by his nutrition coordinator Dr Hollis though they recently moved and he has not yet established with his new nutrition coordinator through [facility]. He is also concerned because he has had increased frequency of urination. He uses a urinal at home notes that he had 2 L of output last night. He denies any dysuria or hematuria. No flank pain fevers or chills. Related Data Home Medications ?Medication ?Instructions ?Recorded ?Confirmed ?Last Taken ?Type aspirin 81 mg tablet 81 mg PO DAILY 03/13/21 02/07/25 Unknown History atorvastatin 10 mg tablet (Lipitor) 10 mg PO QPM 03/13/21 02/07/25 Unknown History azelastine 137 mcg (0.1 %) nasal 137 mcg intranasal BID PRN Nasal 03/13/21 02/07/25 Unknown History spray Congestion cetirizine 10 mg tablet (Zyrtec) 10 mg PO DAILY 03/13/21 02/07/25 Unknown History enalapril maleate 20 mg tablet 10 mg PO DAILY 03/13/21 02/07/25 Unknown History fluticasone 250 mcg-salmeterol 50 250 inh inhalation BID 03/13/21 02/07/25 Unknown History mcg/dose blistr powdr for inhalation (Advair Diskus) hydrochlorothiazide 12.5 mg tablet 12.5 mg PO DAILY 03/13/21 02/07/25 Unknown History levothyroxine 75 mcg tablet 75 mcg PO DAILY 03/13/21 02/07/25 Unknown History montelukast 10 mg tablet 10 mg PO DAILY 03/13/21 02/07/25 Unknown History tamsulosin 0.4 mg capsule 0.4 mg PO DAILY 03/13/21 02/07/25 Unknown History albuterol sulfate 90 mcg/actuation 2 puff inhalation Q6-8H 04/26/22 02/07/25 Unknown History aerosol inhaler ketotifen fumarate 0.025 % (0.035 1 drp EACH EYE DAILY 04/26/22 02/07/25 Unknown History %) eye drops (Alaway) nebivolol 20 mg tablet (Bystolic) 20 mg PO DAILY 04/26/22 02/07/25 Unknown History cholecalciferol (vitamin D3) 50 50 mcg PO DAILY 02/07/25 02/07/25 Unknown History mcg (2,000 unit) capsule (Vitamin D3) dutasteride 0.5 mg capsule 0.5 mg PO .nightly 02/07/25 02/07/25 Unknown History losartan 100 mg tablet 100 mg PO DAILY 02/07/25 02/07/25 Unknown History iggknyuzxnql-yiqhmqa-pczbo acid 1 tablet PO DAILY 02/07/25 02/07/25 Unknown History 500 mcg-lutein 250 mcg chewable tablet Allergies Allergy/AdvReac Type Severity Reaction Status Date / Time codeine Allergy Mild Itching Verified 02/07/25 10:56 Penicillins Allergy Mild Hives Verified 02/07/25 10:56 Calcium Channel Blocking Allergy Unknown SEE NOTE Verified 02/07/25 10:56 Agents-Dih zolpidem (From Ambien) Allergy Nightmare Verified 02/07/25 10:56 amlodipine AdvReac Severe SOB, Verified 02/07/25 10:56 JITTERY, INCREASED BLOOD PRESSURE PMFSH Past Medical History Medical History History of atrial fibrillation 1 episode in 2019 when hospitalized for L2 fracture and kyphoplasty PVCs (premature ventricular contractions) Asthma Diastolic dysfunction Mild coronary artery disease Minor nonocclusive coronary disease with 20% proximal and 30% LAD stenosis with an EF of 60%. Benign prostate hyperplasia Paroxysmal supraventricular tachycardia Hypothyroidism Dyslipidemia Hypertension Surgical History Surgical History H/O kyphoplasty Fell off a ladder, burst fracture of L2, 2019 History of cataract extraction History of thyroidectomy History of cardiac catheterization (2009) History of tonsillectomy History of colonoscopy with polypectomy History of loop recorder Family History Family History (Updated 02/07/25 @ 10:54 by Joaquina Suarez RN) Father Diabetes mellitus Heart failure Hypertension Cerebrovascular accident Mother Diabetes mellitus Hypertension Grandparent Cerebrovascular accident Sibling Bryson's palsy MS (multiple sclerosis) Social History Social History Social History: Surrogate decision maker: Saniya Miller, spouse. Code status: Full code. 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 Smoking packs per day: 0.5 Smoking cigarettes per day: 10.0 Years smoked: 20 Smoking pack-years: 10.00 Smoking status: Former smoker Tobacco type: cigarettes Alcohol intake: never Substance use: never Do You Feel Safe in your Home?: Yes Lack of Transportation: No Lack of Food: Never True Current Housing: I Have Housing Concerned About Future Housing: No Difficulty Paying Gas/Electric Bills: No Difficulty Paying for Meds: No Currently Unemployed: No Education: Master's Degree or Higher Difficulty w/ Childcare or Family Care: No Living arrangements: with family Additional living arrangements comments: The patient lives with his in [place]. 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 Gender identity (if verbalized by the patient): Male Spiritual care concerns: No Exam Narrative: GENERAL: Well-appearing, well-nourished, and in no acute distress. HEAD: Normocephalic, atraumatic. EYES: Non injected, non icteric ENT: Nares clear, no rhinorrhea or epistaxis. Gross auditory acuity intact. NECK: Supple. No meningismus. CHEST: Speaking in full sentences. No respiratory distress. HEART: IRRegular rate and rhythm, tachycardic ABDOMEN: Soft, nondistended. EXTREMITIES: Normal range of motion. 2+ bilateral lower extremity edema. SKIN: Warm, dry, no rash. NEURO: No focal deficits. Alert and oriented. Answering questions. Following commands. Normal speech without aphasia or dysarthria. PSYCH: Normal mood and affect. Course Vital Signs Vital signs: Vital Signs Temperature 98 F 02/07/25 06:48 Pulse Rate 130 H 02/07/25 06:48 Respiratory Rate 20 02/07/25 06:48 Blood Pressure 163/103 H 02/07/25 06:48 Pulse Oximetry 98 02/07/25 06:48 Oxygen Delivery Room Air 02/07/25 06:48 Temperature 98.5 F 02/07/25 19:57 Pulse Rate 53 L 02/07/25 19:57 Respiratory Rate 16 02/07/25 19:57 Blood Pressure 157/64 H 02/07/25 19:57 Pulse Oximetry 100 02/07/25 19:57 Oxygen Delivery Room Air 02/07/25 16:00 MDM - Arrhythmia/Palpitations MDM Narrative Medical decision making narrative: Patient presents with palpitations. In the emergency department he is afebrile with vital signs notable for hypertension as well as elevated heart rate. Patient had previously been on nebivolol but this was discontinued and he is now on losartan/hydrochlorothiazide. He had also previously been on amlodipine but notes an allergy to calcium channel blockers as he reports they caused hypotension as well as itching. Not currently on anticoagulation as this has been discontinued in 2018. History of atrial fibrillation as well as PVCs and paroxysmal supraventricular tachycardia per review of the EMR. Upon my exam patient does have a heart rate on the monitor in the 130s. His palpable pulse rate appears to be in the 120s and the nonperfusing beats appear to be PVCs. Patient hemodynamically stable thus early priority in management was to slow the ventricular rate. Will order metoprolol given this is a medication he had previously been on (and notes an allergy to CCBs). IVP 2.5mg over 2 minutes initially ordered. With this, he does rate control, to the 60s consistently. Patient has an elevated troponin. No prior for comparison. Will obtain 3 hour and aspirin is ordered. Possible degree of demand ischemia. Pro BNP mildly elevated but not to a degree to suggest acute heart failure especially given the reference range of the assay for patient's age. Discussed patient's workup with him. He does note that he is feeling better symptomatically. He concurs with admission given the NSTEMI and for further monitoring of his atrial fibrillation as well as a clear discharge plan. Discussed with on-call hospitalist Dr Laws who accepts admission ([facility]). Patient had endorsed that he would want attempt at resuscitation in the event of cardiopulmonary arrest (FUll Code) but would not want to be a piece of meat if he flat lined brain activity. Dr. Laws did request that I discuss with Cardiology. Spoke with Dr You who recommended starting sotolol BID - he will place the orders. Repeat troponin result as patient is being transported upstairs, still elevated but stable. Differential Diagnosis Differential diagnosis: Likely palpitations, anxiety, sinus tachycardia, artial fibrillation, artial flutter, ventricular premature beats, supraventricular tachycardia, ventricular tachycardia and WPW Medical Records Attestation: I reviewed the patient's medical records. Medical records narrative: (see MDM) Lab Data Attestation: I reviewed the patient's lab results. Lab results narrative: Normocytic anemia, stable from previous. No leukocytosis. Microscopic hematuria 02/07/25 07:01 02/07/25 07:01 Labs: Lab Results 02/07/25 02/07/25 Range/Units 07:01 07:51 WBC 8.0 (4.5-10.0) K/mm3 RBC 4.54 L (4.6-6.20) M/mm3 Hgb 13.2 L (14.0-18.0) g/dL Hct 40.7 L (42.0-52.0) % MCV 89.6 (80-100) fl MCH 29.1 (26-34) pg MCHC 32.4 (32-36) g/dl RDW 12.8 (11.5-14.5) % Plt Count 212 (150-375) k/mm3 MPV 10.0 (7.4-10.4) fl Immature Gran % (Auto) 0.1 (0-0.5) % Neut % (Auto) 27.7 L (45.5-73.1) % Lymph % (Auto) 63.0 H (18.3-44.2) % [place] % (Auto) 7.2 (2.6-8.5) % Eos % (Auto) 1.6 (0-4.4) % Baso % (Auto) 0.4 (0.2-1.2) % Lymph # (Auto) 5.02 H (0.9-3.2) K/mm3 [place] # (Auto) 0.6 (0.1-0.6) K/mm3 Eos # (Auto) 0.1 (0-0.3) K/mm3 Baso # (Auto) 0.0 (0.0-0.1) K/mm3 Abs Immat Gran (auto) 0.01 (0.00-0.031) K/mm3 Absolute Neuts (auto) 2.2 (1.3-6.7) K/mm3 Absolute Nucleated RBC 0.000 (0.0-0.012) K/mm3 Nucleated RBC % 0.0 (0.0-0.2) % PT 14.8 H (11.1-14.7) Seconds INR 1.1 APTT 28.7 (22.3-36.8) Seconds Sodium 140 (137-145) mmol/L Potassium 3.6 (3.4-5.0) mmol/L Chloride 104 (98-107) mmol/L Carbon Dioxide 29 (22-30) mmol/L Anion Gap 7 (4-12) mmol/L BUN 26 H D (9-20) mg/dL Creatinine 0.80 (0.7-1.3) mg/dL Estim Creat Clear Calc 77 ml/min Estimated GFR > 60 (59 - ) Glucose 115 H (65-110) mg/dL Calcium 9.7 (8.4-10.2) mg/dL Magnesium 1.9 (1.6-2.3) mg/dL Total Bilirubin 0.5 (0.2-1.3) mg/dL AST 25 (17-59) U/L ALT 20 (6-50) U/L Alkaline Phosphatase 68 (38-126) U/L Troponin I 0.066 H* (0.000-0.034) ng/mL NT-Pro-B Natriuret Pep 750 H (19.9-100) pg/mL Total Protein 6.9 (6.3-8.2) g/dL Albumin 4.2 (3.5-5.1) g/dL Lipase 23 (23-300) U/L Urine Color Yellow (Yellow) Urine Appearance Clear (Clear) Urine pH 7.5 (5.0-9.0) Ur Specific [place] 1.011 (1.001-1.035) Urine Protein Trace (Negative) mg/dL Urine Glucose (UA) Negative (Negative) mg/dL Urine Ketones Negative (Negative) mg/dL Ur Blood (Man) Negative (Negative) Urine Nitrate Negative (Negative) Urine Bilirubin Negative (Negative) Urine Urobilinogen 0.2 (<2.0) mg/dL Leukocyte Esterase Rfl Negative (Negative) NELSON/UL Urine RBC 3-5 H (0-2) /hpf Urine WBC 0-5 (0-3) /hpf Ur Squamous Epith Cells None seen (Few) /hpf Urine Bacteria None seen /hpf Urine Casts 0-2 Imaging Data Radiologist's impression: Impressions Chest X-Ray 02/07/25 07:19 IMPRESSION: 1. No acute cardiopulmonary disease. ECG Data EKG #1: Attestation: I personally reviewed and interpreted this ECG as follows: ECG completion date: 02/07/25 ECG completion time: 06:53 Interpretation: While there are occasional a complexes liquid P-waves the rate is irregularly irregular possible atrial fibrillation with RVR at a rate of 121 beats per minute with aberrant condution versus frequent PVCs (though morphology of QRS appears similar to others). QRS 92. QT/QTC 305/377. Good R-wave progression across the precordial leads. Occasional ST depression though wandering isoelectric line limits full interpretation. EKG #2: Attestation: I personally reviewed and interpreted this ECG as follows: ECG completion date: 02/07/25 ECG completion time: 09:50 Interpretation: Sinus bradycardia at a rate of [address] interval 181. QRS 93. QT/QTC 412/407. Good R-wave progression across the precordial leads. No T-wave inversions. Discharge Plan Discharge Clinical Impression: Palpitations, Normocytic anemia, Non-ST elevation [place] (NSTEMI), Microscopic hematuria, A-fib Patient Disposition: Still a Patient Condition: Stable
[2025-02-07 07:40] LABS: Troponin I 0.066 ng/mL (0.000-0.034)
[2025-02-07 07:43] LABS: Magnesium 1.9 mg/dL (1.6-2.3)
[2025-02-07] MEDS: ASPIRIN 81 MG CHEWABLE TABLET 324 MG PO (07:49)
[2025-02-07] MEDS: METOPROLOL TARTRATE INJ 5 MG/5 ML VIAL 2.5 MG IV PUSH (07:50)
[2025-02-07 08:09] LABS: Add Urine Microscopic? YES; Appearance Urine Clear (Clear); Bacteria Urine None Seen /hpf; Bilirubin Urine Negative (Negative); Blood Urine Negative (Negative); Color Urine Yellow (Yellow); Glucose Urine UA Negative (Negative); Ketones Urine Negative (Negative); Leukocyte Esterase Ur Negative LEU/UL (Negative); Nitrate Urine Negative (Negative); Non Pathogenic Casts 0-2; Protein Urine Trace mg/dL (Negative); Specific Grav Ur 1.011 (1.001-1.035); Squamous Epithelial Cell Urine None Seen /hpf (Few); Urobilinogen Urine 0.2 mg/dL (<2.0); WBC Urine 0-5 /hpf (0-3); pH Urine 7.5 (5.0-9.0)
[2025-02-07 08:10] LABS: NT Pro B Type Natriuretic Pept 750 pg/mL (19.9-100)
--- NOTE | 2025-02-07 09:46 | ECG_ITS ---
Test Date: 2025-02-07 09:50:12 Measurements Intervals [place] Rate: 57 P: 23 MD: 181 QRS: 8 QRSD: 93 T: 33 QT: 412 QTc: 404 Interpretive Statements SINUS BRADYCARDIA MINIMAL Q WAVES- HIGH LATERAL LEADS BORDERLINE ECG Compared to ECG 02/07/2025 06:53:39 Atrial fibrillation no longer present Electronically Signed On 02-07-2025 10:00:50 CDT by Trae You D.O.
[2025-02-07] MEDS: SOTALOL HCL 80 MG TABLET PO ×2 (09:47→20:51)
--- NOTE | 2025-02-07 09:51 | P.CONCA_ITS ---
Assessment and Plan Assessment and plan (1) PAF (paroxysmal atrial fibrillation): Code(s): I48.0 - Paroxysmal atrial fibrillation Status: Acute Assessment and Plan: [id number] 3. On aspirin 81 mg daily. 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 While he is here, will start Lovenox 1 mg/kg SQ every 12 hours. Discuss antiarrhythmic medication and he is agreeable to start Sotalol as per protocol. Obtain echo. Monitor HR and QT interval as per protocol. (2) Hypertension: Code(s): I10 - Essential (primary) hypertension Status: Acute Assessment and Plan: Stable to low normal. (3) Dyslipidemia: Code(s): E78.5 - Hyperlipidemia, unspecified Status: Acute Assessment and Plan: On Atorvastatin. (4) Mild coronary artery disease: Code(s): I25.10 - Atherosclerotic heart disease of [place] coronary artery without angina pectoris Status: Chronic Assessment and Plan: Stable. History of Present Illness History of Present Illness Consult date/time: 02/07/25 09:51 Reason For Visit: chest palp Narrative: 79 yr old man presented to ER with palpitations. He has a history of PAF for several years, hypertension, dyslipidemia, remote smoking. 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 Hollis who he states is relocating so he will change to one of his partners. States he has atrial fib off and on and early this morning at 3 am he felt it again and felt like it was jumping out of his chest. He is back in sinus rhythm now in ED. He normally walks with a walker short distances due to balance issues. He has chronic mild edema of both legs. Denies chest pain, sob, orthopnea, PND, dizziness. Review of Systems 2 Review of Systems: All systems reviewed & are unremarkable except as noted in HPI and below Constitutional: Constitutional: Reports as per HPI, Denies chills and Denies fever(s) Cardiovascular: Cardiovascular: Reports as per HPI, Denies chest pain, Reports rapid heart rate and Reports irregular heart rhythm Respiratory: Respiratory: Reports as per HPI and Denies dyspnea Gastrointestinal: Gastrointestinal: Reports as per HPI and Denies abdominal pain Genitourinary: Genitourinary: Reports as per HPI and Denies dysuria Musculoskeletal: Musculoskeletal: Reports as per HPI Neurologic: Reports as per HPI, Denies dizziness and Denies syncope [facility] Past Medical History Medical History History of atrial fibrillation 1 episode in 2019 when hospitalized for L2 fracture and kyphoplasty PVCs (premature ventricular contractions) Asthma Diastolic dysfunction Mild coronary artery disease Minor nonocclusive coronary disease with 20% proximal and 30% LAD stenosis with an EF of 60%. Benign prostate hyperplasia Paroxysmal supraventricular tachycardia Hypothyroidism Dyslipidemia Hypertension Surgical History Surgical History H/O kyphoplasty Fell off a ladder, burst fracture of L2, 2018 History of cataract extraction History of thyroidectomy History of cardiac catheterization (2009) History of tonsillectomy History of colonoscopy with polypectomy History of loop recorder Family History Family History Father Diabetes mellitus Heart failure Hypertension Cerebrovascular accident Mother Diabetes mellitus Hypertension Legal Guardian No problems noted. Grandparent Cerebrovascular accident Social History Social History Social History: Surrogate decision maker: Saniya Miller, spouse. Code status: Full code. 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 Smoking status: Former smoker Tobacco type: cigarettes Alcohol intake: never Substance use: never Lack of Transportation: No Lack of Food: Never True Current Housing: I Have Housing Concerned About Future Housing: No Difficulty Paying Gas/Electric Bills: No Difficulty Paying for Meds: No Currently Unemployed: No Education: Master's Degree or Higher Difficulty w/ Childcare or Family Care: No Living arrangements: with family Additional living arrangements comments: The patient lives with his in [place]. 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 Gender identity (if verbalized by the patient): Male Spiritual care concerns: No Meds Home Medications and Allergies Home Medications ?Medication ?Instructions ?Recorded ?Confirmed ?Type aspirin 81 mg tablet 81 mg PO DAILY 03/13/21 02/07/25 History atorvastatin 10 mg tablet (Lipitor) 10 mg PO DAILY 03/13/21 02/07/25 History azelastine 137 mcg (0.1 %) nasal 137 mcg intranasal BID PRN Nasal 03/13/21 02/07/25 History spray Congestion cetirizine 10 mg tablet (Zyrtec) 10 mg PO DAILY 03/13/21 02/07/25 History enalapril maleate 20 mg tablet 10 mg PO DAILY 03/13/21 02/07/25 History finasteride 5 mg tablet 5 mg PO DAILY 03/13/21 11/24/22 History fluticasone 250 mcg-salmeterol 50 250 inh inhalation BID 03/13/21 02/07/25 History mcg/dose blistr powdr for inhalation (Advair Diskus) hydrochlorothiazide 12.5 mg tablet 12.5 mg PO DAILY 03/13/21 02/07/25 History levothyroxine 75 mcg tablet 75 mcg PO DAILY 03/13/21 02/07/25 History montelukast 10 mg tablet 10 mg PO DAILY 03/13/21 02/07/25 History tamsulosin 0.4 mg capsule 0.4 mg PO DAILY 03/13/21 02/07/25 History ergocalciferol (vitamin D2) 1,250 50,000 unit PO WEEKLY #10 caps 01/29/22 02/07/25 Rx mcg (50,000 unit) capsule (Vitamin D2) albuterol sulfate 90 mcg/actuation inhalation 04/26/22 11/24/22 History aerosol inhaler fluticasone 250 mcg-salmeterol 50 inhalation 04/26/22 11/24/22 History mcg/dose blistr powdr for inhalation (Advair Diskus) ketotifen fumarate 0.025 % (0.035 drp 04/26/22 11/24/22 History %) eye drops (Alaway) nebivolol 20 mg tablet (Bystolic) 20 mg PO DAILY 04/26/22 02/07/25 History mupirocin 2 % topical ointment 1 applic topical .COMPLEX #22 grams 11/24/22 02/07/25 Rx dutasteride 0.5 mg capsule 0.5 mg PO .nightly 02/07/25 02/07/25 History losartan 100 1 tablet PO DAILY 02/07/25 02/07/25 History mg-hydrochlorothiazide 25 mg tablet Allergies Allergy/AdvReac Type Severity Reaction Status Date / Time codeine Allergy Mild Itching Verified 02/07/25 07:06 Penicillins Allergy Mild Hives Verified 02/07/25 07:06 Calcium Channel Blocking Allergy Unknown SEE NOTE Verified 02/07/25 07:06 Agents-Dih zolpidem (From Ambien) Allergy Nightmare Verified 02/07/25 07:06 amlodipine AdvReac Severe SOB, Verified 02/07/25 07:06 JITTERY, INCREASED BLOOD PRESSURE Vital Signs Vital Signs - 24 hr 02/07/25 06:48 02/07/25 07:00 02/07/25 07:00 Temperature 98 F Pulse Rate 130 H 130 H Respiratory Rate 20 Blood Pressure 163/103 H Pulse Oximetry 98 97 Oxygen Delivery Room Air Room Air 02/07/25 07:17 02/07/25 07:17 02/07/25 07:50 Temperature Pulse Rate 126 H 143 H Respiratory Rate 17 Blood Pressure 139/71 Pulse Oximetry 98 98 Oxygen Delivery Room Air 02/07/25 07:54 02/07/25 08:42 02/07/25 09:47 Temperature Pulse Rate 104 H 61 62 Respiratory Rate 18 11 L Blood Pressure 132/97 H 120/62 Pulse Oximetry 100 96 Oxygen Delivery 02/07/25 09:48 02/07/25 09:50 Temperature Pulse Rate 67 65 Respiratory Rate 15 Blood Pressure 107/66 Pulse Oximetry 97 Oxygen Delivery Exam 2 Const: General: cooperative, healthy appearing and comfortable Cardio: Rate: regular rate Rhythm: regular rhythm Heart sounds: no murmurs Peripheral pulses: dorsalis pedis present GI: GI Palp: No abdominal tenderness and Yes Soft to palpation Neuro: General: oriented to person, oriented to place and oriented to time Extrem: Right lower extremity: edema Left lower extremity: edema Other: Mild edema of both legs Results Labs and Meds 02/07/25 07:01 02/07/25 07:01 Lab results: Cardiac Enzymes 02/07/25 Range/Units 07:01 AST 25 (17-59) U/L Troponin I 0.066 H* (0.000-0.034) ng/mL Coagulation 02/07/25 Range/Units 07:01 PT 14.8 H (11.1-14.7) Seconds APTT 28.7 (22.3-36.8) Seconds CBC 02/07/25 Range/Units 07:01 WBC 8.0 (4.5-10.0) K/mm3 RBC 4.54 L (4.6-6.20) M/mm3 Hgb 13.2 L (14.0-18.0) g/dL Hct 40.7 L (42.0-52.0) % Plt Count 212 (150-375) k/mm3 Lymph # (Auto) 5.02 H (0.9-3.2) K/mm3 [place] # (Auto) 0.6 (0.1-0.6) K/mm3 Eos # (Auto) 0.1 (0-0.3) K/mm3 Baso # (Auto) 0.0 (0.0-0.1) K/mm3 Comprehensive Metabolic Panel 02/07/25 Range/Units 07:01 Sodium 140 (137-145) mmol/L Potassium 3.6 (3.4-5.0) mmol/L Chloride 104 (98-107) mmol/L Carbon Dioxide 29 (22-30) mmol/L BUN 26 H D (9-20) mg/dL Creatinine 0.80 (0.7-1.3) mg/dL Glucose 115 H (65-110) mg/dL Calcium 9.7 (8.4-10.2) mg/dL AST 25 (17-59) U/L ALT 20 (6-50) U/L Alkaline Phosphatase 68 (38-126) U/L Total Protein 6.9 (6.3-8.2) g/dL Albumin 4.2 (3.5-5.1) g/dL Patient Weight 02/07/25 23:59 Weight 85.4 kg
[2025-02-07] MEDS: ENOXAPARIN 100 MG/ML SYRINGE 85 MG SUB-Q ×2 (10:17→20:53)
--- NOTE | 2025-02-07 10:41 | ADMGEN ---
This patient, Milton Miller, was admitted to IMU Room 200-01 at 1057. Patient/family oriented to hospital policies and general routines including ID bracelet, bed and alarms, visiting hours, pain management, procedures, bathroom and other care routines, personal items, smoking policy, room service/diet, and visiting hours. Information on how to activate the Rapid Response Team has been discussed. Patient/Family are encouraged to report perceived risks to care and to ask questions if they do not understand what they are told or what they should do.
[2025-02-07 10:44] LABS: Troponin I 0.066 ng/mL (0.000-0.034)
[2025-02-07] MEDS: POTASSIUM CHLORIDE 20 MEQ PACKET (FOR LIQUID) 40 MEQ PO (12:05)
[2025-02-07] MEDS: LOSARTAN POTASSIUM 100 MG TABLET PO (12:05)
[2025-02-07 13:26] LABS: Troponin I 0.069 ng/mL (0.000-0.034)
--- NOTE | 2025-02-07 14:25 | PM.IMHP ---
H&P: HPI History of Present Illness Date/Time: 02/07/25 14:25 Chief Complaint: palpitation Narrative: Patient with history of Afib, HTN presented with palpitation started early this morning around 3:00 a.m. a symptom was getting better but continued so he decided to come to ER for further management. Denies any chest pain, shortness off breath, abdominal pain, nausea vomiting. Patient is not on anticoagulation because of bruising in the past. In the ER patient was found to have AFib with RVR. He received IV metoprolol. Heart rate was under good control. Is started on Lovenox. Cardiology was consulted on recommended echo, aspirin, Lovenox, sotalol. Patient was admitted for further management. At time of my exam patient is feeling better. Heart rate converted back to sinus rhythm. Denies any chest pain, shortness of breath. He is feeling he is back to his baseline. Review of Systems Review of Systems: All systems reviewed & are unremarkable except as noted in HPI and below Constitutional: Constitutional: Reports as per HPI, Denies chills and Denies fever(s) ENT: Denies dizziness Cardiovascular: Cardiovascular: Reports as per HPI, Denies chest pain, Denies syncope, Reports rapid heart rate, Reports irregular heart rhythm and Denies dyspnea Respiratory: Respiratory: Reports as per HPI and Denies dyspnea Gastrointestinal: Gastrointestinal: Reports as per HPI and Denies abdominal pain Genitourinary: Genitourinary: Reports as per HPI and Denies dysuria Musculoskeletal: Musculoskeletal: Reports as per HPI Neurologic: Reports as per HPI, Denies dizziness and Denies syncope COUNTS INCLUDE 234 BEDS AT THE [facility] Past Medical History Medical History History of atrial fibrillation 1 episode in 2019 when hospitalized for L2 fracture and kyphoplasty PVCs (premature ventricular contractions) Asthma Diastolic dysfunction Mild coronary artery disease Minor nonocclusive coronary disease with 20% proximal and 30% LAD stenosis with an EF of 60%. Benign prostate hyperplasia Paroxysmal supraventricular tachycardia Hypothyroidism Dyslipidemia Hypertension Surgical History Surgical History H/O kyphoplasty Fell off a ladder, burst fracture of L2, 2019 History of cataract extraction History of thyroidectomy History of cardiac catheterization (2009) History of tonsillectomy History of colonoscopy with polypectomy History of loop recorder Family History Family History (Updated 02/07/25 @ 10:54 by Joaquina Suarez RN) Father Diabetes mellitus Heart failure Hypertension Cerebrovascular accident Mother Diabetes mellitus Hypertension Grandparent Cerebrovascular accident Sibling Bryson's palsy MS (multiple sclerosis) Social History Social History Social History: Surrogate decision maker: Saniya Miller, spouse. Code status: Full code. 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 Smoking packs per day: 0.5 Smoking cigarettes per day: 10.0 Years smoked: 20 Smoking pack-years: 10.00 Smoking status: Former smoker Tobacco type: cigarettes Alcohol intake: never Substance use: never Do You Feel Safe in your Home?: Yes Lack of Transportation: No Lack of Food: Never True Current Housing: I Have Housing Concerned About Future Housing: No Difficulty Paying Gas/Electric Bills: No Difficulty Paying for Meds: No Currently Unemployed: No Education: Master's Degree or Higher Difficulty w/ Childcare or Family Care: No Living arrangements: with family Additional living arrangements comments: The patient lives with his in [place]. 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 Gender identity (if verbalized by the patient): Male Spiritual care concerns: No Meds Home Medications and Allergies Home Medications ?Medication ?Instructions ?Recorded ?Confirmed ?Type aspirin 81 mg tablet 81 mg PO DAILY 03/13/21 02/07/25 History atorvastatin 10 mg tablet (Lipitor) 10 mg PO QPM 03/13/21 02/07/25 History azelastine 137 mcg (0.1 %) nasal 137 mcg intranasal BID PRN Nasal 03/13/21 02/07/25 History spray Congestion cetirizine 10 mg tablet (Zyrtec) 10 mg PO DAILY 03/13/21 02/07/25 History enalapril maleate 20 mg tablet 10 mg PO DAILY 03/13/21 02/07/25 History fluticasone 250 mcg-salmeterol 50 250 inh inhalation BID 03/13/21 02/07/25 History mcg/dose blistr powdr for inhalation (Advair Diskus) hydrochlorothiazide 12.5 mg tablet 12.5 mg PO DAILY 03/13/21 02/07/25 History levothyroxine 75 mcg tablet 75 mcg PO DAILY 03/13/21 02/07/25 History montelukast 10 mg tablet 10 mg PO DAILY 03/13/21 02/07/25 History tamsulosin 0.4 mg capsule 0.4 mg PO DAILY 03/13/21 02/07/25 History ergocalciferol (vitamin D2) 1,250 50,000 unit PO WEEKLY #10 caps 01/29/22 02/07/25 Rx mcg (50,000 unit) capsule (Vitamin D2) albuterol sulfate 90 mcg/actuation 2 puff inhalation Q6-8H 04/26/22 02/07/25 History aerosol inhaler ketotifen fumarate 0.025 % (0.035 1 drp EACH EYE DAILY 04/26/22 02/07/25 History %) eye drops ([place]) nebivolol 20 mg tablet (Bystolic) 20 mg PO DAILY 04/26/22 02/07/25 History mupirocin 2 % topical ointment 1 applic topical .COMPLEX #22 grams 11/24/22 02/07/25 Rx cholecalciferol (vitamin D3) 50 50 mcg PO DAILY 02/07/25 02/07/25 History mcg (2,000 unit) capsule (Vitamin D3) dutasteride 0.5 mg capsule 0.5 mg PO .nightly 02/07/25 02/07/25 History losartan 100 mg tablet 100 mg PO DAILY 02/07/25 02/07/25 History xgkhaifcxtpn-trrzfyj-jreqw acid 1 tablet PO DAILY 02/07/25 02/07/25 History 500 mcg-lutein 250 mcg chewable tablet Allergies Allergy/AdvReac Type Severity Reaction Status Date / Time codeine Allergy Mild Itching Verified 02/07/25 10:56 Penicillins Allergy Mild Hives Verified 02/07/25 10:56 Calcium Channel Blocking Allergy Unknown SEE NOTE Verified 02/07/25 10:56 Agents-Dih zolpidem (From Ambien) Allergy Nightmare Verified 02/07/25 10:56 amlodipine AdvReac Severe SOB, Verified 02/07/25 10:56 JITTERY, INCREASED BLOOD PRESSURE Vital Signs Vital Signs - 24 hr 02/07/25 06:48 02/07/25 07:00 02/07/25 07:00 Temperature 98 F Pulse Rate 130 H 130 H Respiratory Rate 20 Blood Pressure 163/103 H Pulse Oximetry 98 97 Oxygen Delivery Room Air Room Air 02/07/25 07:17 02/07/25 07:17 02/07/25 07:50 Temperature Pulse Rate 126 H 143 H Respiratory Rate 17 Blood Pressure 139/71 Pulse Oximetry 98 98 Oxygen Delivery Room Air 02/07/25 07:54 02/07/25 08:42 02/07/25 09:47 Temperature Pulse Rate 104 H 61 62 Respiratory Rate 18 11 L Blood Pressure 132/97 H 120/62 Pulse Oximetry 100 96 Oxygen Delivery 02/07/25 09:48 02/07/25 09:50 02/07/25 10:18 Temperature Pulse Rate 67 65 59 L Respiratory Rate 15 14 Blood Pressure 107/66 131/61 Pulse Oximetry 97 99 Oxygen Delivery 02/07/25 10:30 02/07/25 10:59 02/07/25 11:59 Temperature 98 F 97.6 F 98.0 F Pulse Rate 57 L 62 52 L Respiratory Rate 16 16 20 Blood Pressure 120/64 148/69 H 130/65 Pulse Oximetry 97 98 98 Oxygen Delivery 02/07/25 12:00 02/07/25 12:00 02/07/25 14:00 Temperature Pulse Rate 67 55 L Respiratory Rate Blood Pressure Pulse Oximetry Oxygen Delivery Room Air Exam Narrative: GENERAL: Well-appearing, well-nourished, and in no acute distress. HEAD: Normocephalic, atraumatic. EYES: Non injected, non icteric ENT: Nares clear, no rhinorrhea or epistaxis. Gross auditory acuity intact. NECK: Supple. No meningismus. CHEST: Speaking in full sentences. No respiratory distress. HEART: Regular rate and rhythm, tachycardic ABDOMEN: Soft, nondistended. EXTREMITIES: Normal range of motion. 2+ bilateral lower extremity edema. SKIN: Warm, dry, no rash. NEURO: No focal deficits. Alert and oriented. Answering questions. Following commands. Normal speech without aphasia or dysarthria. PSYCH: Normal mood and affect. H&P: Results Labs Labs: Short CBC 02/07/25 Range/Units 07:01 WBC 8.0 (4.5-10.0) K/mm3 Hgb 13.2 L (14.0-18.0) g/dL Hct 40.7 L (42.0-52.0) % Plt Count 212 (150-375) k/mm3 BMP 02/07/25 07:01 Sodium 140 Potassium 3.6 Chloride 104 Carbon Dioxide 29 BUN 26 H D Creatinine 0.80 Glucose 115 H Calcium 9.7 Cardiac Enzymes 02/07/25 02/07/25 02/07/25 Range/Units 07:01 09:49 12:49 Troponin I 0.066 H* 0.066 H* 0.069 H* (0.000-0.034) ng/mL Liver Function 02/07/25 Range/Units 07:01 Total Bilirubin 0.5 (0.2-1.3) mg/dL AST 25 (17-59) U/L ALT 20 (6-50) U/L Alkaline Phosphatase 68 (38-126) U/L Albumin 4.2 (3.5-5.1) g/dL Urine 02/07/25 Range/Units 07:51 Urine Color Yellow (Yellow) Urine Appearance Clear (Clear) Urine pH 7.5 (5.0-9.0) Ur Specific [place] 1.011 (1.001-1.035) Urine Protein Trace (Negative) mg/dL Urine Glucose (UA) Negative (Negative) mg/dL Assessment and Plan Assessment and plan (1) PAF (paroxysmal atrial fibrillation): Code(s): I48.0 - Paroxysmal atrial fibrillation Status: Acute Assessment and Plan: Converted to sinus rhythm [id number] 3. Continue home aspirin Continue Lovenox therapeutic Continue with sotalol, started today Obtain echo. Monitor HR and QT interval as per protocol. Follow cardiology team condition (2) Hypertension: Code(s): I10 - Essential (primary) hypertension Status: Acute Assessment and Plan: Losartan, sotalol (3) Dyslipidemia: Code(s): E78.5 - Hyperlipidemia, unspecified Status: Acute Assessment and Plan: On Atorvastatin. (4) Mild coronary artery disease: Code(s): I25.10 - Atherosclerotic heart disease of [place] coronary artery without angina pectoris Status: Chronic Assessment and Plan: Sotalol, aspirin, losartan, statin Plan Hypothyroidism Levothyroxine BPH From a
[2025-02-07] MEDS: ATORVASTATIN 10 MG TABLET PO (20:51)
[2025-02-07] MEDS: FLUTICASONE/SALMETEROL 115-21 MCG INHALER 1 PUFF 2 PUFF INHALATION (21:14)
[2025-02-08] VITALS (21 sets, daily range): BP systolic 92–188; BP diastolic 61–79; PULSE 45–64; RESP 16–22; TEMP 36.5–37.3; O2SAT 96–100
--- NOTE | 2025-02-08 | ECG_ITS ---
Test Date: 2025-02-08 22:28:29 Measurements Intervals [place] Rate: 59 P: 18 MS: 187 QRS: -11 QRSD: 86 T: 4 QT: 441 QTc: 439 Interpretive Statements SINUS BRADYCARDIA VOLTAGE CRITERIA FOR LVH BORDERLINE T WAVE ABNORMALITY- INFERIOR LEADS BORDERLINE ECG Compared to ECG 02/08/2025 11:33:18 HEART RATE HAS INCREASED Electronically Signed On 02-09-2025 07:13:27 CDT by Trae You D.O.
[2025-02-08 04:37] LABS: Hematocrit 36.1 % (42.0-52.0); Hemoglobin 11.6 g/dL (14.0-18.0); Mean Corpuscular HGB Conc 32.1 g/dl (32-36); Mean Corpuscular Volume 90.3 fl (80-100); Mean Platelet Volume 10.3 fl (7.4-10.4); Platelet Count Result 181 k/mm3 (150-375); Red Cell Distribution Width 12.7 % (11.5-14.5); White Blood Count 7.3 K/mm3 (4.5-10.0)
[2025-02-08 04:55] LABS: Anion Gap 3 mmol/L (4-12); Blood Urea Nitrogen 28 mg/dL (9-20); Carbon Dioxide 30 mmol/L (22-30); Chloride 105 mmol/L (98-107); Estimated CRCL calculation 67 ml/min; Estimated Glomerular Filt Rate > 60; Glucose 100 mg/dL (65-110); Potassium 3.5 mmol/L (3.4-5.0); Sodium 138 mmol/L (137-145)
[2025-02-08] MEDS: LEVOTHYROXINE SODIUM 75 MCG TABLET PO (06:40)
--- NOTE | 2025-02-08 08:14 | P.PNCA_ITS ---
Progress Note: A&P Assessment and Plan (1) PAF (paroxysmal atrial fibrillation): Code(s): I48.0 - Paroxysmal atrial fibrillation Status: Acute Assessment and Plan: [id number] 3. On aspirin 81 mg daily. On Lovenox. 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 While he is here, he is on Lovenox 1 mg/kg SQ every 12 hours. Discuss antiarrhythmic medication and he is agreeable to start Sotalol as per protocol. Monitor HR and QT interval as per protocol. Decrease Sotalol 40 mg BID due to bradycardia. Obtain echo in AM. (2) Hypertension: Code(s): I10 - Essential (primary) hypertension Status: Acute Assessment and Plan: High, but he states he did not take his home medication yesterday and has not gotten it this morning. (3) Dyslipidemia: Code(s): E78.5 - Hyperlipidemia, unspecified Status: Acute Assessment and Plan: On Atorvastatin. (4) Mild coronary artery disease: Code(s): I25.10 - Atherosclerotic heart disease of [place] coronary artery without angina pectoris Status: Chronic Assessment and Plan: Stable. Subjective Date/time seen: 02/08/25 08:14 Interval history: Denies chest pain or sob. Exam Const: General: cooperative, healthy appearing and comfortable Orientation/consciousness: oriented to person, oriented to place and oriented to time Cardio: Rate: bradycardic Rhythm: regular rhythm Heart sounds: no murmurs Peripheral pulses: dorsalis pedis present Neuro: General: oriented to person, oriented to place and oriented to time Extrem: Right lower extremity: edema Left lower extremity: edema Other: Mild edema of both legs Objective Data Vital Signs Vital Signs: Vital Signs - 24 hr 02/07/25 08:42 02/07/25 09:47 02/07/25 09:48 Temperature Pulse Rate 61 62 67 Respiratory Rate 11 L 15 Blood Pressure 120/62 107/66 Pulse Oximetry 96 97 Oxygen Delivery 02/07/25 09:50 02/07/25 10:18 02/07/25 10:30 Temperature 98 F Pulse Rate 65 59 L 57 L Respiratory Rate 14 16 Blood Pressure 131/61 120/64 Pulse Oximetry 99 97 Oxygen Delivery 02/07/25 10:59 02/07/25 11:59 02/07/25 12:00 Temperature 97.6 F 98.0 F Pulse Rate 62 52 L 67 Respiratory Rate 16 20 Blood Pressure 148/69 H 130/65 Pulse Oximetry 98 98 Oxygen Delivery 02/07/25 12:00 02/07/25 14:00 02/07/25 16:00 Temperature Pulse Rate 55 L Respiratory Rate Blood Pressure Pulse Oximetry Oxygen Delivery Room Air Room Air 02/07/25 16:00 02/07/25 16:08 02/07/25 18:00 Temperature 97.9 F Pulse Rate 55 L 53 L 56 L Respiratory Rate 18 Blood Pressure 126/64 Pulse Oximetry 96 Oxygen Delivery 02/07/25 19:57 02/07/25 20:00 02/07/25 20:30 Temperature 98.5 F Pulse Rate 53 L 50 L 53 L Respiratory Rate 16 16 Blood Pressure 157/64 H Pulse Oximetry 100 100 Oxygen Delivery Room Air 02/07/25 20:51 02/07/25 21:20 02/07/25 22:00 Temperature Pulse Rate 53 L 53 L 65 Respiratory Rate 16 Blood Pressure Pulse Oximetry Oxygen Delivery 02/08/25 00:00 02/08/25 00:00 02/08/25 00:30 Temperature 97.7 F Pulse Rate 55 L 49 L 55 L Respiratory Rate 17 17 Blood Pressure 153/61 H Pulse Oximetry 98 98 Oxygen Delivery Room Air 02/08/25 01:40 02/08/25 04:00 02/08/25 04:00 Temperature 98.5 F Pulse Rate 51 L 52 L 52 L Respiratory Rate 17 17 Blood Pressure 168/66 H Pulse Oximetry 98 98 Oxygen Delivery Room Air 02/08/25 04:00 02/08/25 06:00 02/08/25 07:58 Temperature 98.0 F Pulse Rate 52 L 45 L 54 L Respiratory Rate 22 H Blood Pressure 188/76 H Pulse Oximetry 100 Oxygen Delivery Intake/Output Intake/Output: Intake & Output 02/05/25 02/06/25 02/07/25 02/08/25 23:59 23:59 23:59 23:59 Intake Total 680 Output Total 575 Balance 680 -575 Meds/Results Medications: Active Medications Generic Name Dose Route Start Last Admin Trade Name Freq PRN Reason Stop Dose Admin Acetaminophen 650 mg 02/07/25 08:51 Acetaminophen 325 Mg Tablet PO Q4H PRN Mild Pain (1-3) or Fever Albuterol 2 puff 02/07/25 14:35 Albuterol Sulfate (*Sp) Aerosol 1 Puff INHALATION Q6-8H MARIBEL Aspirin 81 mg 02/08/25 08:00 Aspirin 81 Mg Chewable Tablet PO DAILY@0800 [facility] Atorvastatin Calcium 10 mg 02/07/25 21:00 02/07/25 20:51 Atorvastatin 10 Mg Tablet PO 10 mg HS MARIBEL Administration Azelastine HCl 1 spray 02/07/25 11:16 Azelastine Hcl Nasal 0.1% 137 Mcg/Spr 30 Ml Btl NASAL BID PRN Nasal Congestion Enoxaparin Sodium 85 mg 02/07/25 10:05 02/07/25 20:53 Enoxaparin 100 Mg/Ml Syringe SUB-Q 85 mg Q12HR MARIBEL Administration Levothyroxine Sodium 75 mcg 02/08/25 06:30 02/08/25 06:40 Levothyroxine Sodium 75 Mcg Tablet PO 75 mcg DAILY@0630 MARIBEL Administration Loratadine 10 mg 02/08/25 09:00 Loratadine 10 Mg Tablet PO QAM MARIBEL Losartan Potassium 100 mg 02/07/25 09:00 02/07/25 12:05 Losartan Potassium 100 Mg Tablet PO 100 mg DAILY MARIBEL Administration Miscellaneous Information 0 each 02/07/25 00:01 Clarify Home Albuterol Dosing Schedule XX 03/09/25 00:00 CLARIFY [facility] Montelukast Sodium 10 mg 02/08/25 09:00 Montelukast Sodium 10 Mg Tablet PO DAILY [facility] Ondansetron HCl 4 mg 02/07/25 08:51 Ondansetron Inj 4 Mg/2 Ml Vial IV PUSH Q4H PRN Nausea Perflutren Lipid Microsphere 0 ml 02/07/25 09:09 Perflutren Lipid Microspheres 1.5 Ml Vial Diluted To 10 Ml Total Volume IV PUSH 02/10/25 09:10 ONCE PRN adequate visualization Protocol Potassium Chloride 40 meq 02/08/25 08:08 Potassium Chloride 20 Meq Packet (For Liquid) PO 02/08/25 08:09 ONCE ONE Fluticasone/Salmeterol 2 puff 02/07/25 20:00 02/07/25 21:14 Fluticasone/Salmeterol 115-21 Mcg Inhaler 1 Puff INHALATION 2 puff Q12HRT MARIBEL Administration Sotalol HCl 40 mg 02/08/25 09:00 Sotalol Hcl 40 Mg Tablet PO Q12HR [facility] Tamsulosin HCl 0.4 mg 02/08/25 09:00 Tamsulosin Hcl 0.4 Mg Capsule PO DAILY [facility] Vitamin D 50 mcg 02/08/25 09:00 Cholecalciferol (Vitamin D3) 25 Mcg (1,000 Units) Tablet PO DAILY [facility] Radiology Results: ITS Impressions Chest X-Ray 02/07/25 07:19 IMPRESSION: 1. No acute cardiopulmonary disease. Labs Labs: Laboratory Results - last 24 hr 02/07/25 02/07/25 02/08/25 09:49 12:49 04:23 WBC 7.3 RBC 4.00 L Hgb 11.6 L Hct 36.1 L MCV 90.3 MCH 29.0 MCHC 32.1 RDW 12.7 Plt Count 181 MPV 10.3 Sodium 138 Potassium 3.5 Chloride 105 Carbon Dioxide 30 Anion Gap 3 L BUN 28 H Creatinine 0.93 Estim Creat Clear Calc 67 Estimated GFR > 60 Glucose 100 Calcium 9.0 Magnesium 2.0 2.0 Troponin I 0.066 H* 0.069 H*
[2025-02-08] MEDS: FLUTICASONE/SALMETEROL 115-21 MCG INHALER 1 PUFF 2 PUFF INHALATION ×2 (08:28→20:45)
[2025-02-08] MEDS: SOTALOL HCL 40 MG TABLET PO ×2 (09:22→20:24)
[2025-02-08] MEDS: AZELASTINE HCL NASAL 0.1% 137 MCG/SPR 30 ML BTL 1 SPRAY NASAL (09:22)
[2025-02-08] MEDS: TAMSULOSIN HCL 0.4 MG CAPSULE PO (09:22)
[2025-02-08] MEDS: MONTELUKAST SODIUM 10 MG TABLET PO (09:22)
[2025-02-08] MEDS: LOSARTAN POTASSIUM 100 MG TABLET PO (09:23)
[2025-02-08] MEDS: ASPIRIN 81 MG CHEWABLE TABLET PO (09:23)
[2025-02-08] MEDS: CHOLECALCIFEROL (VITAMIN D3) 25 MCG (1,000 UNITS) TABLET 50 MCG PO (09:23)
[2025-02-08] MEDS: ENOXAPARIN 100 MG/ML SYRINGE 85 MG SUB-Q ×2 (09:23→20:24)
[2025-02-08] MEDS: LORATADINE 10 MG TABLET PO (09:23)
[2025-02-08] MEDS: POTASSIUM CHLORIDE 20 MEQ PACKET (FOR LIQUID) 40 MEQ PO (09:24)
--- NOTE | 2025-02-08 13:49 | P.PNIM_ITS ---
Progress Note: A&P Assessment and Plan (1) PAF (paroxysmal atrial fibrillation): Code(s): I48.0 - Paroxysmal atrial fibrillation Status: Acute Assessment and Plan: Converted to sinus rhythm [id number] 3. Continue home aspirin Continue Lovenox therapeutic Continue with sotalol, decreased to 40 mg in setting of bradycardia Obtain echo. Monitor HR and QT interval as per protocol. Follow cardiology team recommendation (2) Hypertension: Code(s): I10 - Essential (primary) hypertension Status: Acute Assessment and Plan: Losartan, sotalol (3) Dyslipidemia: Code(s): E78.5 - Hyperlipidemia, unspecified Status: Acute Assessment and Plan: On Atorvastatin. (4) Mild coronary artery disease: Code(s): I25.10 - Atherosclerotic heart disease of [place] coronary artery without angina pectoris Status: Chronic Assessment and Plan: Sotalol, aspirin, losartan, statin Plan Hypothyroidism Levothyroxine BPH Flomax Hypokalemia Replaced as needed Subjective Date/time seen: 02/08/25 13:49 Interval history: Patient with history of Afib, HTN presented with palpitation started early this morning around 3:00 a.m. a symptom was getting better but continued so he decided to come to ER for further management. Denies any chest pain, shortness off breath, abdominal pain, nausea vomiting. Patient is not on anticoagulation because of bruising in the past. In the ER patient was found to have AFib with RVR. He received IV metoprolol. Heart rate was under good control. Is started on Lovenox. Cardiology was consulted on recommended echo, aspirin, Lovenox, sotalol. Patient was admitted for further management. At time of my exam patient is feeling better. Heart rate converted back to sinus rhythm. Denies any chest pain, shortness of breath. He is feeling he is back to his baseline. 02/08/25 Patient was seen and examined at bedside. He is feeling fine. His heart rate is sinus rhythm WNl. Had episode of bradycardia. Sotalol decreased to half by Cardiology team. We will replace potassium. Possible discharge to home tomorrow. PT/OT ordered. Echo pending. Review of Systems Review of Systems: All systems reviewed & are unremarkable except as noted in HPI and below Constitutional: Constitutional: Reports as per HPI, Denies chills and Denies fever(s) ENT: Denies dizziness Cardiovascular: Cardiovascular: Reports as per HPI, Denies chest pain, Denies syncope, Reports rapid heart rate, Reports irregular heart rhythm and Denies dyspnea Respiratory: Respiratory: Reports as per HPI and Denies dyspnea Gastrointestinal: Gastrointestinal: Reports as per HPI and Denies abdominal pain Genitourinary: Genitourinary: Reports as per HPI and Denies dysuria Musculoskeletal: Musculoskeletal: Reports as per HPI Neurologic: Reports as per HPI, Denies dizziness and Denies syncope Exam Narrative: GENERAL: Well-appearing, well-nourished, and in no acute distress. HEAD: Normocephalic, atraumatic. EYES: Non injected, non icteric ENT: Nares clear, no rhinorrhea or epistaxis. Gross auditory acuity intact. NECK: Supple. No meningismus. CHEST: Speaking in full sentences. No respiratory distress. HEART: Regular rate and rhythm, tachycardic ABDOMEN: Soft, nondistended. EXTREMITIES: Normal range of motion. 2+ bilateral lower extremity edema. SKIN: Warm, dry, no rash. NEURO: No focal deficits. Alert and oriented. Answering questions. Following commands. Normal speech without aphasia or dysarthria. PSYCH: Normal mood and affect. Objective Data Vital Signs Vital Signs: Vital Signs - 24 hr 02/07/25 14:00 02/07/25 16:00 02/07/25 16:00 Temperature Pulse Rate 55 L 55 L Respiratory Rate Blood Pressure Pulse Oximetry Oxygen Delivery Room Air 02/07/25 16:08 02/07/25 18:00 02/07/25 19:57 Temperature 97.9 F 98.5 F Pulse Rate 53 L 56 L 53 L Respiratory Rate 18 16 Blood Pressure 126/64 157/64 H Pulse Oximetry 96 100 Oxygen Delivery 02/07/25 20:00 02/07/25 20:30 02/07/25 20:51 Temperature Pulse Rate 50 L 53 L 53 L Respiratory Rate 16 Blood Pressure Pulse Oximetry 100 Oxygen Delivery Room Air 02/07/25 21:20 02/07/25 22:00 02/08/25 00:00 Temperature 97.7 F Pulse Rate 53 L 65 55 L Respiratory Rate 16 17 Blood Pressure 153/61 H Pulse Oximetry 98 Oxygen Delivery 02/08/25 00:00 02/08/25 00:30 02/08/25 01:40 Temperature Pulse Rate 49 L 55 L 51 L Respiratory Rate 17 Blood Pressure Pulse Oximetry 98 Oxygen Delivery Room Air 02/08/25 04:00 02/08/25 04:00 02/08/25 04:00 Temperature 98.5 F Pulse Rate 52 L 52 L 52 L Respiratory Rate 17 17 Blood Pressure 168/66 H Pulse Oximetry 98 98 Oxygen Delivery Room Air 02/08/25 06:00 02/08/25 07:58 02/08/25 08:00 Temperature 98.0 F Pulse Rate 45 L 54 L 54 L Respiratory Rate 22 H Blood Pressure 188/76 H Pulse Oximetry 100 Oxygen Delivery 02/08/25 08:28 02/08/25 10:00 02/08/25 11:47 Temperature 98.1 F Pulse Rate 54 L 48 L Respiratory Rate 20 Blood Pressure 165/79 H Pulse Oximetry 96 100 Oxygen Delivery Room Air 02/08/25 12:00 Temperature Pulse Rate 53 L Respiratory Rate Blood Pressure Pulse Oximetry Oxygen Delivery Intake/Output Intake/Output: Intake & Output 02/05/25 02/06/25 02/07/25 02/08/25 23:59 23:59 23:59 23:59 Intake Total 680 480 Output Total 975 Balance 680 -495 Meds/Results Medications: Active Medications Generic Name Dose Route Start Last Admin Trade Name Freq PRN Reason Stop Dose Admin Acetaminophen 650 mg 02/07/25 08:51 Acetaminophen 325 Mg Tablet PO Q4H PRN Mild Pain (1-3) or Fever Albuterol 2 puff 02/07/25 14:35 Albuterol Sulfate (*Sp) Aerosol 1 Puff INHALATION Q6-8H PRN BRONCOSPASM Aspirin 81 mg 02/08/25 08:00 02/08/25 09:23 Aspirin 81 Mg Chewable Tablet PO 81 mg DAILY@0800 MARIBEL Administration Atorvastatin Calcium 10 mg 02/07/25 21:00 02/07/25 20:51 Atorvastatin 10 Mg Tablet PO 10 mg HS MARIBEL Administration Azelastine HCl 1 spray 02/07/25 11:16 02/08/25 09:22 Azelastine Hcl Nasal 0.1% 137 Mcg/Spr 30 Ml Btl NASAL 1 spray BID PRN Administration Nasal Congestion Enoxaparin Sodium 85 mg 02/07/25 10:05 02/08/25 09:23 Enoxaparin 100 Mg/Ml Syringe SUB-Q 85 mg Q12HR MARIBEL Administration Levothyroxine Sodium 75 mcg 02/08/25 06:30 02/08/25 06:40 Levothyroxine Sodium 75 Mcg Tablet PO 75 mcg DAILY@0630 MARIBEL Administration Loratadine 10 mg 02/08/25 09:00 02/08/25 09:23 Loratadine 10 Mg Tablet PO 10 mg QAM MARIBEL Administration Losartan Potassium 100 mg 02/07/25 09:00 02/08/25 09:23 Losartan Potassium 100 Mg Tablet PO 100 mg DAILY MARIBEL Administration Montelukast Sodium 10 mg 02/08/25 09:00 02/08/25 09:22 Montelukast Sodium 10 Mg Tablet PO 10 mg DAILY MARIBEL Administration Ondansetron HCl 4 mg 02/07/25 08:51 Ondansetron Inj 4 Mg/2 Ml Vial IV PUSH Q4H PRN Nausea Perflutren Lipid Microsphere 0 ml 02/07/25 09:09 Perflutren Lipid Microspheres 1.5 Ml Vial Diluted To 10 Ml Total Volume IV PUSH 02/10/25 09:10 ONCE PRN adequate visualization Protocol Fluticasone/Salmeterol 2 puff 02/07/25 20:00 02/08/25 08:28 Fluticasone/Salmeterol 115-21 Mcg Inhaler 1 Puff INHALATION 2 puff Q12HRT MARIBEL Administration Sotalol HCl 40 mg 02/08/25 09:00 02/08/25 09:22 Sotalol Hcl 40 Mg Tablet PO 40 mg Q12HR MARIBEL Administration Tamsulosin HCl 0.4 mg 02/08/25 09:00 02/08/25 09:22 Tamsulosin Hcl 0.4 Mg Capsule PO 0.4 mg DAILY MARIBEL Administration Vitamin D 50 mcg 02/08/25 09:00 02/08/25 09:23 Cholecalciferol (Vitamin D3) 25 Mcg (1,000 Units) Tablet PO 50 mcg DAILY MARIBEL Administration Radiology Results: ITS Impressions Chest X-Ray 02/07/25 07:19 IMPRESSION: 1. No acute cardiopulmonary disease. Labs Labs: Laboratory Results - last 24 hr 02/08/25 04:23 WBC 7.3 RBC 4.00 L Hgb 11.6 L Hct 36.1 L MCV 90.3 MCH 29.0 MCHC 32.1 RDW 12.7 Plt Count 181 MPV 10.3 Sodium 138 Potassium 3.5 Chloride 105 Carbon Dioxide 30 Anion Gap 3 L BUN 28 H Creatinine 0.93 Estim Creat Clear Calc 67 Estimated GFR > 60 Glucose 100 Calcium 9.0 Magnesium 2.0
--- NOTE | 2025-02-08 18:15 | ECG_ITS ---
Test Date: 2025-02-08 00:07:32 Measurements Intervals [place] Rate: 49 P: 14 [place]: 196 QRS: -7 QRSD: 92 T: 7 QT: 507 QTc: 458 Interpretive Statements SINUS BRADYCARDIA LEFT VENTRICULAR HYPERTROPHY MINIMAL Q WAVES- HIGH LATERAL LEADS BASELINE ARTIFACT- II, III, AVR, AVL, AVF ABNORMAL ECG Compared to ECG 02/07/2025 09:50:12 HEART RATE HAS DECREASED Electronically Signed On 02-08-2025 20:43:27 CDT by Trae You D.O.
[2025-02-08] MEDS: ATORVASTATIN 10 MG TABLET PO (20:24)
--- NOTE | 2025-02-08 22:24 | ECG_ITS ---
Test Date: 2025-02-08 11:33:18 Measurements Intervals [place] Rate: 44 P: 16 MA: 193 QRS: -7 QRSD: 94 T: 4 QT: 483 QTc: 418 Interpretive Statements SINUS BRADYCARDIA LEFT VENTRICULAR HYPERTROPHY ABNORMAL ECG Compared to ECG 02/08/2025 00:07:32 NO SIGNIFICANT CHANGE Electronically Signed On 02-08-2025 20:44:08 CDT by Trae You D.O.
[2025-02-09] VITALS (11 sets, daily range): BP systolic 145–188; BP diastolic 52–78; PULSE 43–60; RESP 16–20; TEMP 36.5–36.6; O2SAT 97–100
--- NOTE | 2025-02-09 | ECHO_ITS ---
Patient Info Name: Milton Miller Age: 79 years : 1945 Gender: Male Ht: 74 in Wt: 188 lbs BSA: 2.11 m2 HR: 43 bpm BP: 188 / 78 mmHg Technical Quality: Good Exam Date: 02/09/2025 7:38 AM Patient Status: I Admit Date: 02/07/2025 Exam Type: CA echo doppler color flow Complete two-dimensional, color flow and Doppler transthoracic echocardiogram is performed. Staff Referring Physician: Wilmer Pereira MD Committee Member: Rita Sanches Attending Provider: Randee Laws Summary 1. Complete two-dimensional, color flow and Doppler transthoracic echocardiogram is performed. 2. Left ventricular chamber dimension is mildly enlarged. 3. Left ventricular systolic function is preserved, estimated at 50-55. 4. The left ventricular diastolic function is grade I diastolic dysfunction. 5. E/e' 9 is minimally elevated. 6. Left atrial chamber dimension is moderately enlarged. 7. There is mild aortic valve sclerosis. 8. There is moderate aortic valve regurgitation. 9. There is moderate mitral valve regurgitation. 10. There is mild tricuspid valve regurgitation. 11. No pulmonary hypertension, estimated pulmonary arterial systolic pressure is 33 mmHg. 12. There is mild pulmonic regurgitation. Left Ventricle E/e' 9 is minimally elevated. Left ventricular chamber dimension is mildly enlarged. Left ventricular systolic function is preserved, estimated at 50-55. The left ventricular diastolic function is grade I diastolic dysfunction. Right Ventricle Right ventricular chamber dimension is normal. Right ventricular systolic function is normal and with normal TAPSE 2.6 cm. Left Atria Left atrial chamber dimension is moderately enlarged. Right Atria Right atrial chamber dimension is normal. Aortic Valve The aortic valve is trileaflet. There is mild aortic valve sclerosis. There is no aortic valve stenosis. There is moderate aortic valve regurgitation. Pulmonic Valve There is mild pulmonic regurgitation. Mitral Valve There is no mitral valve stenosis. There is moderate mitral valve regurgitation. Tricuspid Valve There is mild tricuspid valve regurgitation. No pulmonary hypertension, estimated pulmonary arterial systolic pressure is 33 mmHg. Pericardium/Pleural There is no pericardial effusion. Inferior Vena Cava Normal inferior vena cava with >50% collapse upon inspiration consistent with normal right atrial pressure, 5 mmHg. Aorta The aortic root size at the sinus of Valsalva is normal. Left Ventricular Outflow Tract Name Value Normal LVOT 2D LVOT Diameter 2.4 cm LVOT Doppler LVOT Peak Velocity 62 cm/s LVOT Peak Gradient 2 mmHg LVOT Mean Gradient 1 mmHg LVOT VTI 14 cm LVOT VTI/AV VTI Ratio 0.6 LVOT Stroke Volume 66 ml LVOT CO 3.4 l/min LVOT CI 1.6 l/min/m2 Pulmonic Valve Name Value Normal PV Doppler PV Peak Velocity 62 cm/s PV Peak Gradient 2 mmHg PV Regurgitation Doppler AL Peak End Diastolic Velocity 116 cm/s Mitral Valve Name Value Normal MV Regurgitation Doppler MR Peak Gradient 173 mmHg MV Diastolic Function MV E Peak Velocity 44 cm/s MV A Peak Velocity 78 cm/s MV E/A 0.6 MV Decel Time (PW) 318 ms MV Annular TDI MV E/e' (Septal) 10.3 MV E/e' (Lateral) 9.7 MV E/e' (Average) 10.0 Tricuspid Valve Name Value Normal TV Regurgitation Doppler TR Peak Velocity 266 cm/s TR Peak Gradient 28 mmHg Estimated PAP/RSVP RA Pressure 5 mmHg <=5 PA Systolic Pressure 33 mmHg <36 RV Systolic Pressure 33 mmHg <36 TV Annular TDI TV Lateral Louise s' Velocity 14.5 cm/s >=9.5 Aortic Valve Name Value Normal AV 2D/MM AV Area (Planimetry) 4.8 cm2 AV Doppler AV Peak Velocity 102 cm/s AV Peak Gradient 4 mmHg AV Mean Gradient 2 mmHg AV VTI 23 cm AV Area (Cont Eq VTI) 2.9 cm2 >=3.0 AV Area (Cont Eq Bijan) 2.8 cm2 AV DI (Bijan) 0.61 AV Regurgitation 2D LVOT Area 4.5 cm2 Ventricles Name Value Normal LV Dimensions 2D/MM IVS Diastolic Thickness (2D) 1.1 cm 0.6-1.0 LVID Diastole (2D) 5.7 cm 4.2-5.8 LVIW Diastolic Thickness (2D) 1.0 cm 0.6-1.0 LVID Systole (2D) 4.6 cm 2.5-4.0 LVOT Diameter 2.4 cm LV Mass (2D Cubed) 229.81 g 88.00-224.00 LV Mass Index (2D Cubed) 109 g/m2 49-115 Relative Wall Thickness (2D) 0.34 <=0.42 LV Fractional Shortening/Ejection Fraction 2D/MM LV Fractional Shortening (2D) 20 % 25-43 LV EF (2D Teichelianaz) 40 % LV Diastolic Volume (4C MOD) 174 ml LV EF (4C MOD) 48 % LV Diastolic Volume (2C MOD) 162 ml LV EF (2C MOD) 50 % LV Diastolic Volume (BP MOD) 169 ml 62-150 LV Diastolic Volume Index (BP MOD) 80 ml/m2 34-74 LV Systolic Volume (BP MOD) 89 ml 21-61 LV Systolic Volume Index (BP MOD) 42 ml/m2 11-31 LV EF (BP MOD) 48 % 52-72 LV Diastolic Length (4C) 9.5 cm LV Systolic Length (4C) 8.1 cm LV Stroke Volume (4C MOD) 84 ml Atria Name Value Normal LA Dimensions LA Volume (4C A-L) 98 ml LA Volume (BP A-L) 102 ml RA Dimensions RA Systolic Major [place] Length (4C) 6.0 cm 2.1-2.7 RA Area (4C) 22.9 cm2 <=18.0 Report Signatures
[2025-02-09 04:28] LABS: Hematocrit 36.9 % (42.0-52.0); Hemoglobin 11.9 g/dL (14.0-18.0); Mean Corpuscular HGB Conc 32.2 g/dl (32-36); Mean Corpuscular Hemoglobin 29.4 pg (26-34); Mean Corpuscular Volume 91.1 fl (80-100); Mean Platelet Volume 10.7 fl (7.4-10.4); Platelet Count Result 190 k/mm3 (150-375); Red Blood Count 4.05 M/mm3 (4.6-6.20); Red Cell Distribution Width 12.8 % (11.5-14.5)
[2025-02-09 04:53] LABS: Anion Gap 5 mmol/L (4-12); Blood Urea Nitrogen 27 mg/dL (9-20); Carbon Dioxide 29 mmol/L (22-30); Chloride 104 mmol/L (98-107); Estimated CRCL calculation 71 ml/min; Estimated Glomerular Filt Rate > 60; Glucose 112 mg/dL (65-110); Potassium 3.5 mmol/L (3.4-5.0); Sodium 138 mmol/L (137-145)
[2025-02-09] MEDS: LEVOTHYROXINE SODIUM 75 MCG TABLET PO (06:05)
--- NOTE | 2025-02-09 07:56 | PM.PNCARD ---
Progress Note: A&P Assessment and Plan (1) PAF (paroxysmal atrial fibrillation): Code(s): I48.0 - Paroxysmal atrial fibrillation Status: Acute Assessment and Plan: [id number] 3. On aspirin 81 mg daily. On Lovenox. 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 While he is here, he is on Lovenox 1 mg/kg SQ every 12 hours. Discuss antiarrhythmic medication and he is agreeable to start Sotalol as per protocol. Monitor HR and QT interval as per protocol. Decrease Sotalol 40 mg BID due to bradycardia. Obtain echo this morning. 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 (2) Hypertension: Code(s): I10 - Essential (primary) hypertension Status: Acute Assessment and Plan: High. Start Hydralazine 25 mg BID. (3) Dyslipidemia: Code(s): E78.5 - Hyperlipidemia, unspecified Status: Acute Assessment and Plan: On Atorvastatin. (4) Mild coronary artery disease: Code(s): I25.10 - Atherosclerotic heart disease of [place] coronary artery without angina pectoris Status: Chronic Assessment and Plan: Stable. Subjective Date/time seen: 02/09/25 07:56 Interval history: Denies chest pain or sob. Exam Const: General: cooperative, healthy appearing and comfortable Orientation/consciousness: oriented to person, oriented to place and oriented to time Cardio: Rate: regular rate Rhythm: regular rhythm Heart sounds: no murmurs Peripheral pulses: dorsalis pedis present Neuro: General: oriented to person, oriented to place and oriented to time Extrem: Right lower extremity: edema Left lower extremity: edema Other: Mild edema of both legs Objective Data Vital Signs Vital Signs: Vital Signs - 24 hr 02/08/25 07:58 02/08/25 08:00 02/08/25 08:28 Temperature 98.0 F Pulse Rate 54 L 54 L Respiratory Rate 22 H Blood Pressure 188/76 H Pulse Oximetry 100 96 Oxygen Delivery Room Air 02/08/25 10:00 02/08/25 11:47 02/08/25 12:00 Temperature 98.1 F Pulse Rate 54 L 48 L 53 L Respiratory Rate 20 Blood Pressure 165/79 H Pulse Oximetry 100 Oxygen Delivery 06/22/25 14:00 02/08/25 14:26 02/08/25 16:00 Temperature 98.1 F Pulse Rate 58 L 56 L Respiratory Rate 20 Blood Pressure 92/70 L Pulse Oximetry 98 Oxygen Delivery Room Air 02/08/25 16:00 02/08/25 18:00 02/08/25 19:59 Temperature 97.9 F Pulse Rate 51 L 59 L 64 Respiratory Rate 18 Blood Pressure 174/75 H Pulse Oximetry 100 Oxygen Delivery 02/08/25 20:00 02/08/25 20:10 02/08/25 20:24 Temperature Pulse Rate 64 64 63 Respiratory Rate 18 Blood Pressure Pulse Oximetry 100 Oxygen Delivery Room Air 02/08/25 20:46 02/08/25 22:00 02/08/25 23:43 Temperature 99.1 F Pulse Rate 60 59 L 55 L Respiratory Rate 16 18 Blood Pressure 188/69 H Pulse Oximetry 97 Oxygen Delivery 02/09/25 00:00 02/09/25 00:00 02/09/25 02:00 Temperature Pulse Rate 55 L 56 L 49 L Respiratory Rate 18 Blood Pressure Pulse Oximetry 97 Oxygen Delivery Room Air 02/09/25 03:52 02/09/25 04:00 02/09/25 04:00 Temperature 97.7 F Pulse Rate 53 L 53 L 43 L Respiratory Rate 20 20 Blood Pressure 188/78 H Pulse Oximetry 100 100 Oxygen Delivery Room Air 02/09/25 06:00 Temperature Pulse Rate 48 L Respiratory Rate Blood Pressure Pulse Oximetry Oxygen Delivery Intake/Output Intake/Output: Intake & Output 02/06/25 02/07/25 02/08/25 02/09/25 23:59 23:59 23:59 23:59 Intake Total 680 1070 500 Output Total 1175 1100 Balance 549 -974 -523 Meds/Results Medications: Active Medications Generic Name Dose Route Start Last Admin Trade Name Freq PRN Reason Stop Dose Admin Acetaminophen 650 mg 02/07/25 08:51 Acetaminophen 325 Mg Tablet PO Q4H PRN Mild Pain (1-3) or Fever Albuterol 2 puff 02/07/25 14:35 Albuterol Sulfate (*Sp) Aerosol 1 Puff INHALATION Q6-8H PRN BRONCOSPASM Aspirin 81 mg 02/08/25 08:00 02/08/25 09:23 Aspirin 81 Mg Chewable Tablet PO 81 mg DAILY@0800 MARIBEL Administration Atorvastatin Calcium 10 mg 02/07/25 21:00 02/08/25 20:24 Atorvastatin 10 Mg Tablet PO 10 mg HS AMRIBEL Administration Azelastine HCl 1 spray 02/07/25 11:16 02/08/25 09:22 Azelastine Hcl Nasal 0.1% 137 Mcg/Spr 30 Ml Btl NASAL 1 spray BID PRN Administration Nasal Congestion Enoxaparin Sodium 85 mg 02/07/25 10:05 02/08/25 20:24 Enoxaparin 100 Mg/Ml Syringe SUB-Q 85 mg Q12HR MARIBEL Administration Hydralazine HCl 25 mg 02/09/25 09:00 Hydralazine Hcl 25 Mg Tablet PO BID [facility] Levothyroxine Sodium 75 mcg 02/08/25 06:30 02/09/25 06:05 Levothyroxine Sodium 75 Mcg Tablet PO 75 mcg DAILY@0630 MARIBEL Administration Loratadine 10 mg 02/08/25 09:00 02/08/25 09:23 Loratadine 10 Mg Tablet PO 10 mg QAM MARIBEL Administration Losartan Potassium 100 mg 02/07/25 09:00 02/08/25 09:23 Losartan Potassium 100 Mg Tablet PO 100 mg DAILY MARIBEL Administration Montelukast Sodium 10 mg 02/08/25 09:00 02/08/25 09:22 Montelukast Sodium 10 Mg Tablet PO 10 mg DAILY MARIBEL Administration Ondansetron HCl 4 mg 02/07/25 08:51 Ondansetron Inj 4 Mg/2 Ml Vial IV PUSH Q4H PRN Nausea Perflutren Lipid Microsphere 0 ml 02/07/25 09:09 Perflutren Lipid Microspheres 1.5 Ml Vial Diluted To 10 Ml Total Volume IV PUSH 02/10/25 09:10 ONCE PRN adequate visualization Protocol Fluticasone/Salmeterol 2 puff 02/07/25 20:00 02/08/25 20:45 Fluticasone/Salmeterol 115-21 Mcg Inhaler 1 Puff INHALATION 2 puff Q12HRT MARIBEL Administration Sotalol HCl 40 mg 02/08/25 09:00 02/08/25 20:24 Sotalol Hcl 40 Mg Tablet PO 40 mg Q12HR MARIBEL Administration Tamsulosin HCl 0.4 mg 02/08/25 09:00 02/08/25 09:22 Tamsulosin Hcl 0.4 Mg Capsule PO 0.4 mg DAILY MARIBEL Administration Vitamin D 50 mcg 02/08/25 09:00 02/08/25 09:23 Cholecalciferol (Vitamin D3) 25 Mcg (1,000 Units) Tablet PO 50 mcg DAILY MARIBEL Administration Radiology Results: ITS Impressions Chest X-Ray 02/07/25 07:19 IMPRESSION: 1. No acute cardiopulmonary disease. Labs Labs: Laboratory Results - last 24 hr 02/09/25 03:41 WBC 12.0 H RBC 4.05 L Hgb 11.9 L Hct 36.9 L MCV 91.1 MCH 29.4 MCHC 32.2 RDW 12.8 Plt Count 190 MPV 10.7 H Sodium 138 Potassium 3.5 Chloride 104 Carbon Dioxide 29 Anion Gap 5 BUN 27 H Creatinine 0.87 Estim Creat Clear Calc 71 Estimated GFR > 60 Glucose 112 H Calcium 9.0 Magnesium 2.0
[2025-02-09] MEDS: FLUTICASONE/SALMETEROL 115-21 MCG INHALER 1 PUFF 2 PUFF INHALATION (08:24)
[2025-02-09] MEDS: LOSARTAN POTASSIUM 100 MG TABLET PO (08:57)
[2025-02-09] MEDS: TAMSULOSIN HCL 0.4 MG CAPSULE PO (08:57)
[2025-02-09] MEDS: CHOLECALCIFEROL (VITAMIN D3) 25 MCG (1,000 UNITS) TABLET 50 MCG PO (08:57)
[2025-02-09] MEDS: SOTALOL HCL 40 MG TABLET PO (08:57)
[2025-02-09] MEDS: MONTELUKAST SODIUM 10 MG TABLET PO (08:58)
[2025-02-09] MEDS: LORATADINE 10 MG TABLET PO (08:58)
[2025-02-09] MEDS: hydrALAZINE HCL 25 MG TABLET PO (08:58)
[2025-02-09] MEDS: ASPIRIN 81 MG CHEWABLE TABLET PO (08:58)
--- NOTE | 2025-02-09 10:49 | ECG_ITS ---
Test Date: 2025-02-09 11:08:01 Measurements Intervals [place] Rate: 49 P: 24 [place]: 184 QRS: 14 QRSD: 90 T: 50 QT: 467 QTc: 424 Interpretive Statements SINUS BRADYCARDIA BORDERLINE ST ABNORMALITY- HIGH LATERAL LEADS BASELINE ARTIFACT- I, III, AVR, AVL, V1-V3 ABNORMAL ECG Compared to ECG 02/08/2025 22:28:29 HEART RATE HAS DECREASED Electronically Signed On 02-09-2025 11:53:53 CDT by Trae You D.O.
--- NOTE | 2025-02-09 12:45 | PM.DS ---
DS: Admitting Diagnosis Discharge Date 02/09/25 Admitting Diagnosis Palpitation, PAfib RVR DS: Discharge Diagnosis Discharge Diagnosis (1) PAF (paroxysmal atrial fibrillation): Code(s): I48.0 - Paroxysmal atrial fibrillation Status: Acute Assessment and Plan: Converted to sinus rhythm [id number] 3. Continue home aspirin refusing Ac after discharge Continue with sotalol, decreased to 40 mg in setting of bradycardia Obtain echo. : Left atrial chamber dimension is moderately enlarged. There is mild aortic valve sclerosis. There is moderate aortic valve regurgitation. There is moderate mitral valve regurgitation Monitor HR and QT interval as per protocol. Follow cardiology team as outpatient (2) Hypertension: Code(s): I10 - Essential (primary) hypertension Status: Acute Assessment and Plan: Losartan, sotalol (3) Dyslipidemia: Code(s): E78.5 - Hyperlipidemia, unspecified Status: Acute Assessment and Plan: On Atorvastatin. (4) Mild coronary artery disease: Code(s): I25.10 - Atherosclerotic heart disease of [place] coronary artery without angina pectoris Status: Chronic Assessment and Plan: Sotalol, aspirin, losartan, statin Plan Hypothyroidism Levothyroxine BPH Flomax Hypokalemia Replaced as needed DS: Summary Hospital Course Hospital Course: Patient with history of Afib, HTN presented with palpitation started early this morning around 3:00 a.m. a symptom was getting better but continued so he decided to come to ER for further management. Denies any chest pain, shortness off breath, abdominal pain, nausea vomiting. Patient is not on anticoagulation because of bruising in the past. In the ER patient was found to have AFib with RVR. He received IV metoprolol. Heart rate was under good control. Is started on Lovenox. Cardiology was consulted on recommended echo, aspirin, Lovenox, sotalol. Patient was admitted for further management. At time of my exam patient is feeling better. Heart rate converted back to sinus rhythm. Denies any chest pain, shortness of breath. He is feeling he is back to his baseline. 02/08/25 Patient was seen and examined at bedside. He is feeling fine. His heart rate is sinus rhythm WNl. Had episode of bradycardia. Sotalol decreased to half by Cardiology team. We will replace potassium. Possible discharge to home tomorrow. PT/OT ordered. Echo pending. 02/09/25 patient was seen and examined at bedside. he is feeling fine , denies chest pain, abd pain, N/V. Cardiology team on board. Echo: Left atrial chamber dimension is moderately enlarged. There is mild aortic valve sclerosis. There is moderate aortic valve regurgitation. There is moderate mitral valve regurgitation Continue Sotalol and follow as outpatient with Cradiology Time Spent with Patient Time attestation: Total time spent providing and/or coordinating discharge services: Exam Narrative: GENERAL: Well-appearing, well-nourished, and in no acute distress. HEAD: Normocephalic, atraumatic. EYES: Non injected, non icteric ENT: Nares clear, no rhinorrhea or epistaxis. Gross auditory acuity intact. NECK: Supple. No meningismus. CHEST: Speaking in full sentences. No respiratory distress. HEART: Regular rate and rhythm, tachycardic ABDOMEN: Soft, nondistended. EXTREMITIES: Normal range of motion. 2+ bilateral lower extremity edema. SKIN: Warm, dry, no rash. NEURO: No focal deficits. Alert and oriented. Answering questions. Following commands. Normal speech without aphasia or dysarthria. PSYCH: Normal mood and affect. DS: Data Data Completed and Pending Labs on day of discharge: Labs from last 24 hours 02/09/25 03:41 WBC 12.0 H RBC 4.05 L Hgb 11.9 L Hct 36.9 L MCV 91.1 MCH 29.4 MCHC 32.2 RDW 12.8 Plt Count 190 MPV 10.7 H Sodium 138 Potassium 3.5 Chloride 104 Carbon Dioxide 29 Anion Gap 5 BUN 27 H Creatinine 0.87 Estim Creat Clear Calc 71 Estimated GFR > 60 Glucose 112 H Calcium 9.0 Magnesium 2.0 Discharge Plan Discharge Attending physician on discharge: Randee Laws Consulting providers: Trae You Discharging Clinician: Randee Laws Anticipated Discharge Date/Time: 02/09/25 12:58 Patient Disposition: Home Activity: as tolerated Diet: heart healthy Discharge Instructions: follow with PCP in one week, cardiology as scheduled f/u with 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 Check your blood pressure and heart rate regularly and report to the PCP Patient Instructions: Antibiotic Form, Enoxaparin (By injection), Sotalol (By mouth), A-fib (Atrial Fibrillation) (DC) Patient Language: Bulgarian Stand Alone Forms: General Discharge Information Follow-up/Referrals: PHYSICIAN NOT ON STAFF,NONSTAFF [Primary Care Provider] - 1 Week Discharge Medications: New sotalol 80 mg tablet 40 mg PO BID Qty: 30 0RF hydralazine 25 mg Tablet 25 mg PO BID Qty: 60 0RF Continued mupirocin 2 % ointment 1 applic topical .COMPLEX Qty: 22 3RF Rx Instructions: 4x per day intranasal for 2 weeks then daily ergocalciferol (vitamin D2) [Vitamin D2] 1,250 mcg (50,000 unit) Capsule 50,000 unit PO WEEKLY Qty: 10 0RF fluticasone propion-salmeterol [Advair Diskus] 250-50 mcg/dose blister with device 250 inh INHALATION BID cetirizine [Zyrtec] 10 mg Tablet 10 mg PO DAILY atorvastatin [Lipitor] 10 mg tablet 10 mg PO QPM levothyroxine 75 mcg tablet 75 mcg PO DAILY tamsulosin 0.4 mg capsule 0.4 mg PO DAILY montelukast 10 mg tablet 10 mg PO DAILY aspirin 81 mg Tablet 81 mg PO DAILY azelastine 137 mcg (0.1 %) aerosol,spray 137 mcg INTRANASAL BID PRN (Reason: Nasal Congestion) hydrochlorothiazide 12.5 mg tablet 12.5 mg PO DAILY ketotifen fumarate [Alaway] 0.025 % (0.035 %) Drops 1 drp EACH EYE DAILY albuterol sulfate 90 mcg/actuation HFA aerosol inhaler 2 puff INHALATION Q8H PRN (Reason: bronchospasm) dutasteride 0.5 mg capsule 0.5 mg PO .nightly losartan 100 mg tablet 100 mg PO DAILY lxnckjhe-unc-bcppz acid-lutein 500-250 mcg tablet,chewable 1 tablet PO DAILY cholecalciferol (vitamin D3) [Vitamin D3] 50 mcg (2,000 unit) capsule 50 mcg PO DAILY Discontinued enalapril maleate 20 mg tablet 10 mg PO DAILY nebivolol [Bystolic] 20 mg Tablet 20 mg PO DAILY Date of admission: 02/07/25 08:52 Primary Care Provider: PHYSICIAN NOT ON STAFF,NONSTAFF Admitting Provider: Randee Laws Attending physician on admission: Randee Laws Condition: Stable
== END 2025-02-09 13:48 | disposition home or self-care (01) ==
LOC: ANHED 09:03 → ANHIMU 10:39
PROVIDERS: Emergency Medicine; Internal Medicine Cardiovascular Disease; Admitting Provider Internal Medicine; Emergency Provider Student in an Organized Health Care Education/Training Program; Visit Provider Internal Medicine
DX: I48.0 Paroxysmal atrial fibrillation (principal); I11.9 Hypertensive heart disease without heart failure; I08.0 Rheumatic disorders of both mitral and aortic valves; E78.5 Hyperlipidemia, unspecified; I25.10 Atherosclerotic heart disease of native coronary artery without angina pectoris; E89.0 Postprocedural hypothyroidism; N40.0 Benign prostatic hyperplasia without lower urinary tract symptoms; R31.29 Other microscopic hematuria; E87.6 Hypokalemia; J45.909 Unspecified asthma, uncomplicated; D64.9 Anemia, unspecified; R60.0 Localized edema; Z79.51 Long term (current) use of inhaled steroids; Z79.82 Long term (current) use of aspirin; Z79.899 Other long term (current) drug therapy; Z87.891 Personal history of nicotine dependence
CPT/HCPCS: 36415; 71046; 80048; 80053; 81001; 83690; 83735; 83880; 84484; 85025; 85027; 85610; 85730; 93005; 93306; 94640; 96374; 97161; 97166; 99285; A9270; G0378; J1650

== ENCOUNTER 2025-07-27 16:06 | Emergency (ER) | payer MEDICARE, SELFPAY ==
--- NOTE | ~2025-07-27 | XR_ITS ---
EXAMINATION: XR hip LT 2V w AP pelvis DATE: 07/27/2025 17:28 INDICATION: Trauma due to fall. Left hip pain. TECHNIQUE: AP pelvis and 2 views of the left hip were obtained. COMPARISON: Pelvis and right hip dated 01/24/2022. FINDINGS: Postoperative changes of total hip arthroplasty at the right hip. No acute fracture of the left hip. Limited visualization of sacrum due to overlying bowel gas. Severe degenerative disc changes of lower lumbar spine. IMPRESSION: 1. Osteopenic bones. Postsurgical changes of right hip. 2. No acute bony lesions at the left hip. Severe degenerative disc changes of lower lumbar spine. 3. If acute symptoms of the left hip are persistent further evaluation with MRI is recommended. Reviewed, dictated and finalized at location T. ICIPANT ADMINISTRATOR IMPRESSION: 1. Osteopenic bones. Postsurgical changes of right hip. 2. No acute bony lesions at the left hip. Severe degenerative disc changes of l ower lumbar spine. 3. If acute symptoms of the left hip are persistent further evaluation with MRI is recommended.
[2025-07-27 16:34] VITALS: BP 168/65; PULSE 56; RESP 16; TEMP 36.6; O2SAT 100
--- NOTE | 2025-07-27 17:50 | PC.NURSE ---
pT LEFT prior seen the provider at [phone]
--- OUTSIDE RECORDS SUMMARY | 2025-07-27 19:19 | XMS_ITS | Clinical Summary ---
Author Organization [facility] [address] Address [address] [place] [address] Care Team Providers Care Manufacturing Worker Name Role Phone Ana Rhodes MD Primary Care Provid er Allergies Active Allergy Reactions Criticality Noted Date Comments Adhesive Other (See comments) Low 01/20/2019 redness and skin sloughs off if left on too long Amlodipine Unknown 08/03/2009 Other reaction(s): Other Calcium Channel Blocking Agent Diltiazem Analogues Unknown Calcium Channel Blocking Agents-Dihydropyridines Unknown Cefdinir Unknown,Rash Medium 11/01/2009 Codeine Itching Low 07/10/2011 Can take Vicodin Penicillins Unknown,Rash Medium 09/12/2004 Zolpidem Other (See comments) Low 01/20/2019 Night terrors Medications montelukast (SINGULAIR) 10 mg tablet take 1 tablet (10MG) by oral route every day in the evening 0 1 Active levothyroxine (SYNTHROID) 75 mcg tablet take 1 tablet (75MCG) by oral route every day 90 2 1 Active enalapril (VASOTEC) 20 mg tablet Take one by mouth two times per day 0 0 0 Active hydroCHLOROthia zide (HYDRODIURIL) 25 mg tablet Take one by mouth one time per day 0 0 0 Active cetirizine (ZyrTEC) 10 mg tablet Take one by mouth one time per day 0 0 0 Active multivitamin tablet tablet Take one by mouth one time per day 0 0 0 Active atorvastatin (LIPITOR) 10 mg tablet take 1 tablet by oral route every day 0 0 4 Active azelastine (ASTELIN) 137 mcg (0.1 %) nasal spray spray 2 spray by intranasal route 2 times every day in each nostril 0 spray 0 5 Active finasteride (PROSCAR) 5 mg tablet take 1 tablet by oral route every day 0 0 5 Active fluticasone-samra meterol (ADVAIR DISKUS) 250-50 mcg/dose diskus inhaler Two puffs every four to six hours as needed 0 0 0 Active nebivolol (BYSTOLIC) 10 mg tablet Take 1 tablet (10 mg total) by mouth 2 (two) times a day 180 tablet 3 9 Active albuterol 2.5 mg /3 mL (0.083 %) nebulizer solution Inhale 2.5 mg as needed 9 Active ketotifen (ZADITOR) 0.025 % ophthalmic solution Administer 1 drop into both eyes 2 (two) times a day as needed 9 Active tamsulosin (FLOMAX) 0.4 mg extended release capsule Take 1 capsule (0.4 mg total) by mouth daily 1 Active aspirin 81 mg enteric coated tablet Take 1 tablet (81 mg total) by mouth daily 30 tablet 11 2 Active Active Problems Problem Noted Date Diagnosed Date Chronic anticoagulation 10/21/2018 Postoperative atrial fibrillation 10/21/2018 Cardiomyopathy 10/21/2018 Pulmonary HTN 10/21/2018 Coronary artery disease invo lving [place] coronary artery of [place] heart without angina pectoris 02/22/2017 Paroxysmal supraventricular tachycardia 07/27/20 15 Overview (11/24/2016): PSVT (paroxysmal supraventricular tachycardia) Sinus bradycardia 07/27/2015 Overview (11/24/2016): Bradycardia, sinus Benign hypertension 07/27/2015 Overview (11/24/2016): HTN (hypertension), benign Dyslipidemia 07/27/2015 Overview (11/24/2016): Mixed dyslipidemia Cardiac finding 04/22/2014 Overview (11/24/2016): Status post placement of implantable loop recorder 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/2014 Overview (11/24/2016): THYROTOX NOS NO CRISIS Postoperative hypothyroidism 01/03/2014 Overview (11/22/2016): POSTSURGICAL HYPOTHYROID Non-toxic multinodular goiter 01/03/2014 Overview (11/22/2016): NONTOX MULTINODUL GOITER Surgical History Surgery Date Site/Laterality Comments OTHER SURGICAL HISTORY Arrhythmias (symptomatic PVC's; pSVT with syncope): TONSILLECTOMY Tonsillectomy OTHER SURGICAL HISTORY 08/20/2010 - 08/19/2011 Hypothyroidism, post-surgical: Drug therapy THYROIDECTOMY 08/20/2010 - 08/19/2011 Thyroidectomy UPPER GASTROINTESTINAL ENDOSCOPY EUS Medical History Medical History Date Comments Hypertension Hypertension Cardiovascular disease Coronary Artery Disease Hx Other Medical Arrhythmias (sy mptomatic PVC's; pSVT with syncope) Disorder of thyroid Thyroid dise ase Hx Other Medical 2010 Hypothyroidism, post-surgical Hx Other Medical Hyperthyroidism , Thyroid Nodules Asthma Delayed emergence from general anesthesia 1979 Hypothyroidism Sleep apnea Atrial fibrillation (HCC) Family History Medical History Relation Name Comments Other Other No family histo ry of Thyroid disease; Multiple sclerosis Sister Multiple sclerosis; Relation Name Status Comments Other Sister Social History Tobacco Use Types Packs/Day Years Used Date Smoking Tobacco: Former Cigarettes Q uit: 1979 Smokeless Tobacco: Never Tobacco Cessation:Counseling Given: Not Answered Alcohol Use Standard Drinks/Week Comments No 0 (1 standard drink = 0.6 oz pur e alcohol) AUDIT-C Answer Date Recorded Q1: How often do you have a drink containing alc ohol? Never 11/28/2023 Average Number of Drinks Not on file 024 Frequency of Binge Drinking Not on file 11/18 Personal Safety Answer Date Recorded Have you ever been in or are you currently in a harmful physical or emotional relationship or is someone making you feel afraid or unsafe? 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 Gender Identity Not on file Sexual Orientation Not on file Last Filed Vital Signs Vital Sign Reading Time Taken Comments Blood Pressure 183/84 11/28/2023 11:29 AM CDT Pulse 53 11/28/2023 11:29 AM CDT Temperature 36.4 C (97.5 F) 11/28/2023 10:25 AM CDT Respiratory Rate 12 11/28/2023 11:29 AM CDT Oxygen Saturation 100% 11/28/2023 11:29 AM CDT Inhaled Oxygen Concentration - - Weight 83 kg (183 lb) 11/28/2023 10:25 AM CDT Height 188 cm (6' 2) 11/28/2023 10:25 AM CDT Body Mass Index 23.5 11/28/2023 10:25 AM CDT Plan of Treatment Health Maintenance Due Date Last Done Comments Depression Screening 1945 Hepatitis C Screening 1945 Hepatitis B Screening 1964 Pneumococcal vaccine 65+ (2 of 2 - PCV) 08/20/2007 08/20/2006 Well Visit 65+ 11/18/2011 Zoster Vaccine (2 of 3) 10/26/2012 08/31/2012 Fall Risk Assessment 10/16/2023 10/16/2022 Covid-19 Vaccine (4 - 2024-2 6 season) 2025 05/28/2021, 11/09/2020, 10/19/2020 Influenza Vaccine (#1) 2025 , 05/20/2020, 06/18/2019, Additional history exists DTaP/Tdap/Td Vaccine (2 - Td or Tdap) 04/22/2026 04/22/2016 Abdominal Aortic Aneurysm (A AA) Screen Completed 02/01/2019, 08/02/[address] [place] [address] [facility] HMO/POS [facility] ADVANTAGE [facility]IC[facility] Address: [address] [address] [place] [address] [place] [address] [facility] [place] [address] Advance Directives For more information, please contact: [phone] * Full Code (Latest Code Status on File) Date Activated Date Inactivated Comments 11/28/2023 10:28 AM 11/28/2023 3:47 PM * Full Code Date Activated Date Inactivated Comments 10/16/2022 11:48 AM 10/16/2022 7:04 PM * Full Code Date Activated Date Inactivated Comments 09/28/2021 11:28 AM 09/28/2021 5:43 PM Care Teams Manufacturing Worker Relationship Specialty Start Date End Date Ana Rhodes MD [address] [phone] PCP - General Internal Medicine 09/20/21
--- OUTSIDE RECORDS SUMMARY | 2025-07-27 19:19 | XMS_ITS | Clinical Summary ---
Author Organization [facility] Address [address] [place] [address] Phone Care Team Providers Care Pneumatic Press Hand Name Role Phone Ernesto Chowdhury MD Primary Care Provider Unavail able Allergies Active Allergy Reactions Criticality Noted Date Comments Adhesive Other (See Comments) 01/20/2019 redness and skin sloughs off if left on too long Calcium Channel Blocking Agent Diltiazem Analogues Other (See Comments) 01/20/2019 Increases bp Cefdinir Unknown 01/20/2019 Codeine Itching Low 01/20/2019 Penicillins Hives High 01/20/2019 Zolpidem Other (See Comments) 01/20/2019 Night terrors Medications fluticasone propion-salmete rol (ADVAIR DISKUS) 250-50 mcg/dose disk inhaler Take 1 Puff by inhalation 2 times daily. Active albuterol HFA 90 mcg inhaler Take 2 Puffs by inhalation every 6 hours as needed for Shortness of Breath. Active atorvastatin (LIPITOR) 10 mg tablet Take 10 mg by mouth daily at bedtime. Active azelastine (ASTELIN) 137 mcg/actuation nasal spray Administer 2 Sprays in each nostril 1 time daily as needed. Active enalapril (VASOTEC) 20 mg tablet Take 20 mg by mouth 2 times daily. Active finasteride (PROSCAR) 5 mg tablet Take 5 mg by mouth daily at bedtime. Active hydroCHLOROthia zide 25 mg tablet Take 12.5 mg by mouth daily. 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 Active montelukast (SINGULAIR) 10 mg tablet Take 10 mg by mouth daily. Active terazosin (HYTRIN) 2 mg capsule Take 2 mg by mouth daily at bedtime. Active cetirizine (ZyrTEC) 10 mg tablet Take 10 mg by mouth daily at bedtime. Active ketotifen (ALAWAY) 0.025% solution Administer 1 Drop in both eyes 2 times daily. Active aspirin (ECOTRIN EC) 81 mg Tablet, Delayed Release (E.C.) Take 81 mg by mouth daily. Active multivitamin (DAILY-DEANNA) tablet Take 1 Tablet by mouth daily. Active tamsulosin (FLOMAX) 0.4 mg capsule Take 0.4 mg by mouth daily. Active acetaminophen (TYLENOL) 325 mg tablet Take 2 Tablets (650 mg) by mouth every 6 hours. 1 Active nebivoloL (BYSTOLIC) 10 mg Tablet Take 1 Tablet (10 mg) by mouth 2 times daily. 1 Active tiZANidine (ZANAFLEX) 4 mg Tablet Take 1 Tablet (4 mg) by mouth every 8 hours as needed for Discomfort, Pain or Spasm. 1 Active polyethylene glycol (MIRALAX) 17 gram Powder in Packet Take 1 Packet (17 Grams) by mouth daily. 1 Active docusate sodium (COLACE) 100 mg capsule Take 1 Capsule (100 mg) by mouth daily. 1 Active oxyCODONE (ROXICODONE) 5 mg tabletIndicatio ns:Closed burst fracture of lumbar vertebra with routine healing, subsequent encounter Take 1 Tablet (5 mg) by mouth every 6 hours as needed for Pain, Severe. Max Daily Amount: 20 mg 30 Tablet 1 Active Active Problems Problem Noted Date Diagnosed Date Type 2 diabetes mellitus with hyperglycemia 02/18 Sinus bradycardia 03/14/2021 Renal mass 01/29/2019 Closed burst fracture of lumbar vertebra History of falling Paroxysmal atrial fibrillati on with rapid ventricular response Family History Medical History Relation Name Comments Healthy Father Healthy Mother Relation Name Status Comments Father Mother Social History Tobacco Use Types Packs/Day Years Used Date Smoking Tobacco: Former Cigarettes 0.5 20 0 01/21/1964 - 01/21/1984 Smokeless Tobacco: Never Alcohol Use Standard Drinks/Week Comments Not Currently 0 (1 standard drink = 0.6 oz pur e alcohol) Sex and Gender Information Value Date Recorded Sex Assigned at Not on file Legal Sex Male 3:07 PM CDT Gender Identity Not on file Sexual Orientation Not on file Last Filed Vital Signs Vital Sign Reading Time Taken Comments Blood Pressure 175/75 05/27/2021 11:42 AM CDT Pulse 51 05/27/2021 11:42 AM CDT Temperature 36.7 C (98 F) 05/27/2021 11:42 AM CDT Respiratory Rate 23 03/19/2021 11:02 AM CDT Oxygen Saturation 92% 03/19/2021 11:02 AM CDT Inhaled Oxygen Concentration - - Weight 86.2 kg (190 lb) 05/27/2021 11:42 AM CDT Height 185.4 cm (6' 1) 05/27/2021 11:42 AM CDT Body Mass Index 25.07 05/27/2021 11:42 AM CDT Plan of Treatment Health Maintenance Due Date Last Done Comments DIABETES ANNUAL FOOT EXAM 1964 DIABETES ANNUAL RETINAL EXAM 1964 DIABETES HBA1C Q 6 MONTHS 1964 DIABETES MICROALBUMIN ANNUAL SCREEN 1964 LDL CHOLESTEROL ANNUAL 1964 DTAP/TDAP/TD VACCINES (1 - Tdap) 1965 ZOSTER VACCINE (1 of 2) 1996 PNEUMOCOCCAL VACCINE 50+ YEARS (2 of 2 - PCV) 08/20/19 08 08/20/2006 RSV VACCINE (60+ or ) (1 - 1-dose 75+ series) 2021 INFLUENZA VACCINE (#1) 2025 Medical Devices Implanted Type Area Shop Cooper Device Identifier Shelf Expiration Date Model / Serial / Lot Sealant Fibrin Evicel 5ml [id number] - [id number] Implanted:Qty: 1 on 01/29/2019 by Memo Diaz MD at [facility] Other Right: Kidney [employer] 09/19/2021 [id number] / [id number] / [id number] [place] [address] [facility] [id number] [place] [address] Advance Directives For more information, please contact: [phone] * Full Code (Latest Code Status on File) Date Activated Date Inactivated Comments 03/14/2021 7:42 AM 03/19/2021 9:20 PM * Full Code Date Activated Date Inactivated Comments 03/14/2021 6:49 AM 03/14/2021 7:42 AM * Full Code Date Activated Date Inactivated Comments 01/29/2019 1:24 PM 02/05/2019 5:08 PM * Full Code Date Activated Date Inactivated Comments 01/29/2019 5:36 AM 01/29/2019 1:24 PM Care Teams Pneumatic Press Hand Relationship Specialty Start Date End Date Ernesto Chowdhury MD [address] [phone] PCP - General Internal Medicine 01/20/19
--- OUTSIDE RECORDS SUMMARY | 2025-07-27 19:19 | XMS_ITS | Clinical Summary ---
Author Organization [facility] Address [address] [place] [address] Care Team Providers Care Engine Maintenance Mechanic Name Role Phone Ernesto Chowdhury MD Primary Care Provider [phone] Source Comments [facility],non-owned Affiliates and Associated Physician Practices is amultiple site organization consisting of ambulatory clinics and hospital sitesin [place], [place] and [place]. This disclosure is being madepursuant to the Care Everywhere program and may not contain all information available regarding this patient. Last updated 18.[facility] Allergies Active Allergy Reactions Criticality Noted Date Comments Amlodipine Base Unknown 08/03/2009 Other reaction(s): Other Calcium Channel Blockers 01/10/2010 Cefdinir Unknown,Rash Medium 11/01/2009 Codeine Itching 07/10/2011 Can take Vicodin Diltiazem Unknown Penicillins Rash,Unknown Medium 09/12/2004 Medications * Be aware that medications may not be up to date on this document. Alwaysverify current medications with the patient. enalapril (VASOTEC) 20 MG tabletIndicatio ns:COPD (chronic obstructive pulmonary disease) (HCC),Allergic rhinitis,Hypert hyroidism Take 20 mg by mouth 2 times daily. Active montelukast (SINGULAIR) 10 MG tabletIndicatio ns:COPD (chronic obstructive pulmonary disease) (HCC),Allergic rhinitis,Hypert hyroidism Take 10 mg by mouth at bedtime. Active levalbuterol (XOPENEX HFA) 45 MCG/ACT inhaler Inhale 2 Puffs by mouth every 6 hours. Active multivitamin daily (THERAGRAN) tablet Take 1 Tab by mouth daily with food. Active finasteride (PROSCAR) 5 MG tablet Take 5 mg by mouth once daily Active acetaminophen (TYLENOL) 325 MG tablet Take 2 tablets by mouth every 8 hours Maximum allowable Acetaminophen amount = 4 Grams (4000 mg) / 24 hours. 60 tablet 3 8 Active atorvastatin (LIPITOR) 10 MG tablet Take 1 tablet by mouth at bedtime 30 tablet 4 8 Active cetirizine (ZYRTEC) 10 MG tablet Take 1 tablet by mouth once daily 30 tablet 8 Active hydrALAZINE (APRESOLINE) 50 MG tablet Take 1 tablet by mouth 3 times daily 90 tablet 2 8 Active terazosin (HYTRIN) 10 MG capsule Take 1 capsule by mouth once daily 30 capsule 4 8 Active spironolactone (ALDACTONE) 50 MG tablet Take 1 tablet by mouth once daily 30 tablet 3 8 Active calcium citrate-vitamin D (CITRACAL PLUS D) 315-200 MG-UNIT tablet Take 1 tablet by mouth once daily 30 tablet 5 8 Active polyethylene glycol 3350 (MIRALAX) packet Take 34 g by mouth 2 times daily 60 packet 3 8 Active levothyroxine (SYNTHROID) 75 MCG tablet Take 1 tablet by mouth daily before breakfast 30 tablet 1 8 Active aspirin (ASPIRIN) 81 MG tablet Take 81 mg by mouth once daily Active rivaroxaban (XARELTO) 20 MG tablet Take 20 mg by mouth daily with food Active fluticasone-samra meterol (ADVAIR) 250-50 MCG/DOSE inhaler Inhale 1 puff by mouth 2 times daily Active azelastine-flut icasone (DYMISTA) 137-50 MCG/ACT nasal spray [place] into each nostril once daily Active ibuprofen (MOTRIN) 600 MG tablet Take 600 mg by mouth every 6 hours as needed Active traMADol (ULTRAM) 50 MG tablet Take 50 mg by mouth every 6 hours as needed Active Active Problems Problem Noted Date Diagnosed Date Closed stable burst fracture of second lumbar ve rtebra 08/02/2018 Renal mass, right 08/02/2018 Enlarged prostate 08/02/2018 Asthma 01/11/2010 COPD (chronic obstructive pulmonary disease) Allergic rhinitis 01/10/2010 Hyperthyroidism Hyponatremia Hypothyroidism due to acquired atrophy of thyroi d Sarcopenia Immunizations Immunization Administration Dates Next Due PNEUMOCOCCAL PPSV23 08/20/2006 Family History Medical History Relation Name Comments CVA Father Diabetes - Type 2 Mother Relation Name Status Comments Father Mother Social History Tobacco Use Types Packs/Day Years Used Date Smoking Tobacco: Former Cigarettes 0.5 15 Smokeless Tobacco: Never Tobacco Cessation:Counseling Given: No Alcohol Use Standard Drinks/Week Comments No 0 (1 standard drink = 0.6 oz pur e alcohol) Sex and Gender Information Value Date Recorded Sex Assigned at Not on file Legal Sex Male 6:06 AM PRIMING POWDER PREMIX BLENDER Gender Identity Not on file Sexual Orientation Not on file Last Filed Vital Signs Vital Sign Reading Time Taken Comments Blood Pressure 116/67 08/26/2018 10:47 AM PRIMING POWDER PREMIX BLENDER Pulse 67 08/26/2018 10:47 AM PRIMING POWDER PREMIX BLENDER Temperature 36.2 C (97.1 F) 08/26/2018 10:47 AM PRIMING POWDER PREMIX BLENDER Respiratory Rate 18 08/12/2018 12:00 PM PRIMING POWDER PREMIX BLENDER Oxygen Saturation 98% 08/12/2018 12:00 PM PRIMING POWDER PREMIX BLENDER Inhaled Oxygen Concentration 21% 02/02/2010 3 :18 PM CDT room air Weight 93.4 kg (206 lb) 08/26/2018 10:47 AM PRIMING POWDER PREMIX BLENDER Height 185.4 cm (6' 1) 08/26/2018 10:47 AM PRIMING POWDER PREMIX BLENDER Body Mass Index 27.18 08/26/2018 10:47 AM PRIMING POWDER PREMIX BLENDER Plan of Treatment Health Maintenance Due Date Last Done Comments HEPATITIS C SCREENING 11/12/1964 DTAP/TDAP/TD VACCINES (1 - Tdap) 1965 ZOSTER VACCINE (1 of 2) 1996 PNEUMOCOCCAL VACCINE 50+ (2 of 2 - PCV) 08/20/2007 08/20/2006 Respiratory Syncytial Virus (RSV) Vaccine Pt: or over 60 yrs (1 - 1-dose 75+ series) 2021 DEPRESSION SCREENING 08/20/2024 COVID-19 VACCINE ( - 2024-2 6 season) 2025 INFLUENZA VACCINE (#1) 2025 HEPATITIS B VACCINE Aged Out No longe r eligible based on patient's age to complete this topic HIB VACCINE Aged Out No longer eligi ble based on patient's age to complete this topic HPV VACCINE Aged Out No longer eligi ble based on patient's age to complete this topic MENINGOCOCCAL (Group B) VACC INE SHARED DECISION-MAKING Aged Out No longer eligibl e based on patient's age to complete this topic MENINGOCOCCAL GROUPS A/C/Y/W VACCINE Aged Out No longer eligible b ased on patient's age to complete this topic Medical Devices Implanted Type Area Milk Pickup Driver Device Identifier Shelf Expiration Date Model / Serial / Lot High Viscosity Spinal Cement Implanted:Qty: 2 on 08/06/2018 by Alirio Rodriguez MD at [facility] N/A: Spine Lumbar 05/19/2020 [id number] / / [id number] Description:[employer] [place] [place] [address] [address] UHC MANAGED MEDICARE ADV Advance Directives * Full Code (Latest Code Status on File) Date Activated Date Inactivated Comments 08/02/2018 5:44 AM 08/12/2018 3:21 PM * Full Code Date Activated Date Inactivated Comments 08/02/2018 4:49 AM 08/02/2018 5:44 AM Care Teams Engine Maintenance Mechanic Relationship Specialty Start Date End Date Ernesto Chowdhury MD [address] [place] [address] [address] [place] [address] PCP - General 01/10/10
--- NOTE | 2025-07-27 19:34 | ED.FALL ---
HPI - Fall General Chief Complaint: Fall Stated Complaint: fall Time Seen by Provider: 07/27/25 17:57 History of Present Illness HPI Narrative: Patient here after fall out of bed, landing on L hip; did not hit head, no pain anywhere else. Related Data Home Medications ?Medication ?Instructions ?Recorded ?Confirmed ?Last Taken ?Type aspirin 81 mg tablet 81 mg PO DAILY 03/13/21 02/07/25 Unknown History atorvastatin 10 mg tablet (Lipitor) 10 mg PO QPM 03/13/21 02/07/25 Unknown History azelastine 137 mcg (0.1 %) nasal 137 mcg intranasal BID PRN Nasal 03/13/21 02/07/25 Unknown History spray Congestion cetirizine 10 mg tablet (Zyrtec) 10 mg PO DAILY 03/13/21 02/07/25 Unknown History fluticasone 250 mcg-salmeterol 50 250 inh inhalation BID 03/13/21 02/07/25 Unknown History mcg/dose blistr powdr for inhalation (Advair Diskus) hydrochlorothiazide 12.5 mg tablet 12.5 mg PO DAILY 03/13/21 02/07/25 Unknown History levothyroxine 75 mcg tablet 75 mcg PO DAILY 03/13/21 02/07/25 Unknown History montelukast 10 mg tablet 10 mg PO DAILY 03/13/21 02/07/25 Unknown History tamsulosin 0.4 mg capsule 0.4 mg PO DAILY 03/13/21 02/07/25 Unknown History albuterol sulfate 90 mcg/actuation 2 puff inhalation Q8H PRN 04/26/22 02/08/25 Unknown History aerosol inhaler bronchospasm ketotifen fumarate 0.025 % (0.035 1 drp EACH EYE DAILY 04/26/22 02/07/25 Unknown History %) eye drops (Alaway) cholecalciferol (vitamin D3) 50 50 mcg PO DAILY 02/07/25 02/07/25 Unknown History mcg (2,000 unit) capsule (Vitamin D3) dutasteride 0.5 mg capsule 0.5 mg PO .nightly 02/07/25 02/07/25 Unknown History losartan 100 mg tablet 100 mg PO DAILY 02/07/25 02/07/25 Unknown History zmtpsazkcmsq-nudtzqv-pqgxq acid 1 tablet PO DAILY 06/21/25 06/21/25 Unknown History 500 mcg-lutein 250 mcg chewable tablet Allergies Allergy/AdvReac Type Severity Reaction Status Date / Time codeine Allergy Mild Itching Verified 02/07/25 10:56 Penicillins Allergy Mild Hives Verified 02/07/25 10:56 Calcium Channel Blocking Allergy Unknown SEE NOTE Verified 02/07/25 10:56 Agents-Dih zolpidem (From Ambien) Allergy Nightmare Verified 02/07/25 10:56 amlodipine AdvReac Severe SOB, Verified 02/07/25 10:56 JITTERY, INCREASED BLOOD PRESSURE Review of Systems Review of Systems: All systems reviewed & are unremarkable except as noted in HPI and below PMFSH Past Medical History Medical History History of atrial fibrillation 1 episode in 2019 when hospitalized for L2 fracture and kyphoplasty PVCs (premature ventricular contractions) Asthma Diastolic dysfunction Mild coronary artery disease Minor nonocclusive coronary disease with 20% proximal and 30% LAD stenosis with an EF of 60%. Benign prostate hyperplasia Paroxysmal supraventricular tachycardia Hypothyroidism Dyslipidemia Hypertension Surgical History Surgical History H/O kyphoplasty Fell off a ladder, burst fracture of L2, 2018 History of cataract extraction History of thyroidectomy History of cardiac catheterization (2009) History of tonsillectomy History of colonoscopy with polypectomy History of loop recorder Family History Family History (Updated 02/07/25 @ 10:54 by Joaquina Suarez RN) Father Diabetes mellitus Heart failure Hypertension Cerebrovascular accident Mother Diabetes mellitus Hypertension Grandparent Cerebrovascular accident Sibling Bryson's palsy MS (multiple sclerosis) Social History Social History Social History: Surrogate decision maker: Saniya Miller, spouse. Code status: Full code. 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 Smoking packs per day: 0.5 Smoking cigarettes per day: 10.0 Years smoked: 20 Smoking pack-years: 10.00 Smoking status: Former smoker Tobacco type: cigarettes Alcohol intake: never Substance use: never Lack of Transportation: No Lack of Food: Never True Current Housing: I Have Housing Concerned About Future Housing: No Difficulty Paying Gas/Electric Bills: No Difficulty Paying for Meds: No Currently Unemployed: No Education: Master's Degree or Higher Difficulty w/ Childcare or Family Care: No Living arrangements: with family Additional living arrangements comments: The patient lives with his in [place]. 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 Gender identity (if verbalized by the patient): Male Spiritual care concerns: No Exam Narrative: EXAMINATION OF ORGAN SYSTEMS/BODY AREAS: Constitutional: Vital signs per nursing GENERAL:[No acute distress, non-toxic appearing.] HEAD: Normal with no signs of head trauma. EYES: EOMI, conjunctiva normal ENT: Hearing grossly intact LUNGS: Nonlabored breathing. HEART: [Regular rate and rhythm] ABD: [Soft], [nontender to palpation] EXT: Normal range of motion; some tenderness to L pelvic bone SKIN: [No rashes or lesions.] NEURO: [Alert. No gross focal sensory or strength deficits.] PSYCH: Normal affect Course Vital Signs Vital signs: Vital Signs Temperature 97.8 F 07/27/25 16:34 Pulse Rate 56 L 07/27/25 16:34 Respiratory Rate 16 07/27/25 16:34 Blood Pressure 168/65 H 07/27/25 16:34 Pulse Oximetry 100 07/27/25 16:34 Temperature 97.8 F 07/27/25 16:34 Pulse Rate 56 L 07/27/25 16:34 Respiratory Rate 16 07/27/25 16:34 Blood Pressure 168/65 H 07/27/25 16:34 Pulse Oximetry 100 07/27/25 16:34 [facility] Narrative Medical decision making narrative: 79M presents with L hip pain after fall, no head injury or pain elsewhere. On exam, he has no chest wall tenderness or abdominal tenderness, does have some pain to the left pelvic bone. Hip x-rays negative, agreeable to outpatient management with return precautions as needed. Very well-appearing at time of discharge. Differential Diagnosis Differential Diagnosis: fracture, sprain, contusion Imaging Data Radiologist's impression: ITS Impressions Hip/Pelvis X-Ray 07/27/25 17:29 IMPRESSION: 1. Osteopenic bones. Postsurgical changes of right hip. 2. No acute bony lesions at the left hip. Severe degenerative disc changes of lower lumbar spine. 3. If acute symptoms of the left hip are persistent further evaluation with MRI is recommended. Discharge Plan Discharge Clinical Impression: Left-sided pelvic pain Patient Disposition: Home Condition: Stable Instructions: Hip Pain (ED) Additional Instructions: Please follow-up with your doctor and come back for any further issues. Take Tylenol as needed for pain. Patient Language: Tunisian Prescriptions: No Action mupirocin 2 % ointment 1 applic topical .COMPLEX Qty: 22 3RF Rx Instructions: 4x per day intranasal for 2 weeks then daily ergocalciferol (vitamin D2) [Vitamin D2] 1,250 mcg (50,000 unit) Capsule 50,000 unit PO WEEKLY Qty: 10 0RF fluticasone propion-salmeterol [Advair Diskus] 250-50 mcg/dose blister with device 250 inh INHALATION BID cetirizine [Zyrtec] 10 mg Tablet 10 mg PO DAILY atorvastatin [Lipitor] 10 mg tablet 10 mg PO QPM levothyroxine 75 mcg tablet 75 mcg PO DAILY tamsulosin 0.4 mg capsule 0.4 mg PO DAILY montelukast 10 mg tablet 10 mg PO DAILY aspirin 81 mg Tablet 81 mg PO DAILY azelastine 137 mcg (0.1 %) aerosol,spray 137 mcg INTRANASAL BID PRN (Reason: Nasal Congestion) hydrochlorothiazide 12.5 mg tablet 12.5 mg PO DAILY ketotifen fumarate [Alaway] 0.025 % (0.035 %) Drops 1 drp EACH EYE DAILY albuterol sulfate 90 mcg/actuation HFA aerosol inhaler 2 puff INHALATION Q8H PRN (Reason: bronchospasm) dutasteride 0.5 mg capsule 0.5 mg PO .nightly losartan 100 mg tablet 100 mg PO DAILY elzwugqv-uaq-uynsl acid-lutein 500-250 mcg tablet,chewable 1 tablet PO DAILY cholecalciferol (vitamin D3) [Vitamin D3] 50 mcg (2,000 unit) capsule 50 mcg PO DAILY hydralazine 25 mg Tablet 25 mg PO BID Qty: 60 0RF sotalol 80 mg tablet 40 mg PO BID Qty: 30 0RF Follow-up/Referrals: PHYSICIAN NOT ON STAFF,NONSTAFF [Primary Care Provider]
--- OUTSIDE RECORDS SUMMARY | 2025-07-27 20:12 | XMS_ITS | Clinical Summary ---
Author Organization [facility] Address [address] [facility] [place] [address] Care Team Providers Care Supervisor Drapery Hanging Name Role Phone Ernesto Chowdhury MD Primary Care Provider [phone] Source Comments [facility],non-owned Affiliates and Associated Physician Practices is amultiple site organization consisting of ambulatory clinics and hospital sitesin [place], [place], [place] and [place]. This disclosure is being madepursuant to the Care Everywhere program and may not contain all information available regarding this patient. Last updated 18.[facility] Allergies Active Allergy Reactions Criticality Noted Date [...] azelastine-flut icasone (DYMISTA) 137-50 MCG/ACT nasal spray [place] into each nostril once daily Active ibuprofen [...] on file Legal Sex Male 6:06 AM SUPERVISOR BRINE Gender Identity Not on file Sexual Orientation Not on file Last Filed Vital Signs Vital Sign Reading Time Taken Comments Blood Pressure 116/67 08/26/2018 10:47 AM SUPERVISOR BRINE Pulse 67 08/26/2018 10:47 AM SUPERVISOR BRINE Temperature 36.2 C (97.1 F) 08/26/2018 10:47 AM SUPERVISOR BRINE Respiratory Rate 18 08/12/2018 12:00 PM SUPERVISOR BRINE Oxygen Saturation 98% 08/12/2018 12:00 PM SUPERVISOR BRINE Inhaled Oxygen Concentration 21% 02/02/2010 3 :18 PM CDT room air Weight 93.4 kg (206 lb) 08/26/2018 10:47 AM SUPERVISOR BRINE Height 185.4 cm (6' 1) 08/26/2018 10:47 AM SUPERVISOR BRINE Body Mass Index 27.18 08/26/2018 10:47 AM SUPERVISOR BRINE Plan of Treatment Health Maintenance Due Date [...] this topic Medical Devices Implanted Type Area Metal Model Builder Device Identifier Shelf Expiration Date Model / Serial / Lot High Viscosity Spinal Cement Implanted:Qty: 2 on 08/06/2018 by Alirio Rodriguez MD at [facility] N/A: Spine Lumbar 05/19/2020 [id number] / / [id number] Description:[employer] [place] [address] [place] [address] UHC MANAGED MEDICARE ADV Advance Directives * Full Code (Latest Code Status on File) Date Activated Date Inactivated Comments 08/02/2018 5:44 AM 08/12/2018 3:21 PM * Full Code Date Activated Date Inactivated Comments 08/02/2018 4:49 AM 08/02/2018 5:44 AM Care Teams Supervisor Drapery Hanging Relationship Specialty Start Date End Date Ernesto Chowdhury MD [address] [place] [address] [address] [place] [address] PCP - General 01/10/10
--- OUTSIDE RECORDS SUMMARY | 2025-07-27 20:12 | XMS_ITS | Clinical Summary ---
Author Organization [facility] Address [address] [place] [address] Phone Care Team Providers Care Stucco Worker Name Role Phone Ernesto Chowdhury MD Primary [...] tablet Take 75 mcg by mouth daily broker associate. Active montelukast (SINGULAIR) 10 mg tablet Take [...] (#1) 2025 Medical Devices Implanted Type Area Clipper Operator Device Identifier Shelf Expiration Date Model / Serial / Lot Sealant Fibrin Evicel 5ml [id number] - [id number] Implanted:Qty: 1 on 01/29/2019 by Memo Diaz MD at [facility] Other Right: Kidney [employer] 09/19/2021 [id number] / [id number] / [id number] [place] [address] [facility] [id number] [place] [address] Advance Directives For more information, please contact: [phone] * Full Code (Latest Code Status on File) Date Activated Date Inactivated Comments 03/14/2021 7:42 AM 03/19/2021 9:20 PM * Full Code Date Activated Date Inactivated Comments 03/14/2021 6:49 AM 03/14/2021 7:42 AM * Full Code Date Activated Date Inactivated Comments 01/29/2019 1:24 PM 02/05/2019 5:08 PM * Full Code Date Activated Date Inactivated Comments 01/29/2019 5:36 AM 01/29/2019 1:24 PM Care Teams Stucco Worker Relationship Specialty Start Date End Date Ernesto Chowdhury MD [address] [address] PCP - General Internal Medicine 01/20/19
--- OUTSIDE RECORDS SUMMARY | 2025-07-27 20:13 | XMS_ITS | Clinical Summary ---
Author Organization [facility] [address] Address [address] [place] [address] Care Team Providers Care Auto Technician Name Role Phone Ana Rhodes MD Primary [...] HTN 10/21/2018 Coronary artery disease invo lving [place] coronary artery of [place] heart without angina pectoris 02/22/2017 Paroxysmal supraventricular [...] on file Legal Sex Male 6:32 PM SHANK THREADER Gender Identity Not on file Sexual Orientation [...] Screen Completed 02/01/2019, 08/02/[address] [place] [address] [facility] HMO/POS [facility] [place] [address] [facility] [place] [address] Advance Directives For more information, please contact: [phone] * Full Code (Latest Code Status on File) Date Activated Date Inactivated Comments 11/28/2023 10:28 AM 11/28/2023 3:47 PM * Full Code Date Activated Date Inactivated Comments 10/16/2022 11:48 AM 10/16/2022 7:04 PM * Full Code Date Activated Date Inactivated Comments 09/28/2021 11:28 AM 09/28/2021 5:43 PM Care Teams Auto Technician Relationship Specialty Start Date End Date Ana Rhodes MD [address] [place] [place] [id number] PCP - General Internal Medicine 09/20/21
== END 2025-07-27 19:34 | disposition home or self-care (01) ==
PROVIDERS: Emergency Provider Emergency Medicine
DX: R10.32 Left lower quadrant pain (principal); J45.909 Unspecified asthma, uncomplicated; I25.10 Atherosclerotic heart disease of native coronary artery without angina pectoris; E03.9 Hypothyroidism, unspecified; E78.5 Hyperlipidemia, unspecified; I10 Essential (primary) hypertension
CPT/HCPCS: 73502; 99283